=== PATIENT | female | born 1960 | race Hispanic/Latino ===

== ENCOUNTER 2023-04-17 20:46 | Emergency (ER) | payer OTHER ==
[2023-04-17 21:26] LABS: Protime INR 1.05
--- NOTE | 2023-04-17 21:27 | RAD REPORT ---
EXAM DESCRIPTION: [place] Single View04/17/2023 9:15 pm CLINICAL HISTORY: CHEST PAIN COMPARISON: No comparisons TECHNIQUE: Portable AP view of the chest. FINDINGS: The lungs are clear. No pneumothorax or effusion. The cardiomediastinal contours are unre markable. IMPRESSION: No acute cardiopulmonary process.
[2023-04-17 21:32] LABS: Absolute Lymphocytes (CBC) 2.9 K/uL (0.7-4.9); Hematocrit 33.4 % (36.0-45.0); Lymphocytes % 38.1 % (15.3-44.8); MCV 77.4 fL (80-100); MPV 7.7 fL (7.6-11.3); Platelets 336 thou/uL (152-406); RBC Red Blood Cell Count 4.31 M/uL (3.86-4.86)
[2023-04-17] MEDS ORDERED: MORPHINE 4 MG/ML SYR ONE (21:49)
[2023-04-17] MEDS ORDERED: DIAZEPAM 5 MG TABLET ONE (21:49)
[2023-04-17] MEDS ORDERED: dilTIAZem HCL 25 MG/5 ML VIAL IV ONE (21:50)
[2023-04-17] MEDS ORDERED: NA CHLORIDE 0.9% 1,000 ML ONE (21:50)
[2023-04-17] MEDS ORDERED: ONDANSETRON 4 MG/2 ML VIAL ONE (21:50)
[2023-04-17] MEDS ORDERED: DILTIAZEM HCL 60 MG TAB ONE (21:52)
[2023-04-17 21:58] LABS: Bilirubin Direct 0.1 mg/dL (0-0.2); Bilirubin Indirect, Calculated 0.2 mg/dL (0.2-0.8); Bilirubin Total 0.3 mg/dL (0.2-1.0); Magnesium 1.9 mg/dL (1.6-2.4); Protein, Total 6.9 g/dL (6.4-8.2); Troponin High Sensitivity 21.3 pg/mL (<58.9)
[2023-04-17 22:02] LABS: Potassium 2.2 mEq/L (3.5-5.1)
[2023-04-17] MEDS ORDERED: KCL 20 MEQ/100 mL IVPB 100 ML IV ONE (23:10)
[2023-04-17] MEDS ORDERED: POTASSIUM CL SA 10 MEQ TAB PO ONE (23:10)
[2023-04-17] MEDS ORDERED: DICYCLOMINE HCL 20 MG/2 ML AMP IM ONE (23:20)
[2023-04-17] MEDS ORDERED: MORPHINE 2 MG/ML SYR ONE (23:20)
[2023-04-18] MEDS ORDERED: APIXABAN 5 MG TABLET ONE (01:29)
--- NOTE | 2023-04-18 02:10 | EDPHYS ---
Physician Documentation [facility] Name: Donny Causey Age: 63 yrs Sex: Female : 1960 Arrival Date: 04/17/2023 Time: 20:46 Bed 17 Private MD: ED Physician Manoj Diaz HPI: 04/17 20:56 This 63 yrs old Female presents to ER via EMS with complaints of chest pain sp4 and vomiting . 20:56 63-year-old female presents with EMS for cute onset of chest pain midsternal with sp4 radiation to the left arm associated with tachycardia. Reported vomiting and associated abdominal pain. Patient states this is a first time here. Patient was given aspirin 324 mg p.o. prior to arrival by EMS. . 22:58 Patient reports she ran out of her medications 2 weeks ago . Patient states that she sp4 has history of atrial fibrillation diagnosed 3 years ago. Patient is on Eliquis 5 mg p.o. every 12 hours, Solifenacin 5 mg p.o., duloxetine 20 mg daily, furosemide 40 mg daily, losartan 25 mg daily, Lipitor 10 mg every night, metoprolol tartrate 75 mg p.o. twice daily. 04/18 02:24 Patient states she has not taken her medications for the past 2 weeks. sp4 Historical: - Allergies: 04/17 20:54 No Known Allergies; nj1 - PMHx: 20:54 Cerebrovascular accident; Coronary atherosclerosis; Hypertensive disorder; nj1 - Immunization history:: Client reports receiving the 2nd dose of the Covid vaccine. - Social history:: Smoking status: Patient denies any tobacco usage or history of. - Family history:: not pertinent. ROS: 22:32 Constitutional: Negative for fever, chills, and weight loss, positive chest pain , sp4 positive abdominal pain, positive vomiting 22:32 All other systems are negative, Exam: 22:30 ECG was reviewed by the Attending Physician. EKG time 2100, T atrial fibrillation sp4 with PVCs, at the rate of 109, there is no ST elevation or depression 22:32 Constitutional: This is a well developed, well nourished patient who is awake, alert, sp4 and in no acute distress. Head/Face: Normocephalic, atraumatic. Eyes: Pupils equal round and reactive to light, extra-ocular motions intact. Lids and lashes normal. Conjunctiva and sclera are not injected. Cornea within normal limits. Periorbital areas with no swelling, redness, or edema. ENT: Nares patent. No nasal discharge, no septal abnormalities noted. Tympanic membranes are normal and external auditory canals are clear. Oropharynx with no redness, swelling, or masses, exudates, or evidence of obstruction, uvula midline. Mucous membranes moist. Neck: Trachea midline, no thyromegaly or masses palpated, and no cervical lymphadenopathy. Supple, full range of motion without nuchal rigidity, or vertebral point tenderness. Chest/axilla: Normal chest wall appearance and motion. Nontender with no deformity. No lesions are appreciated. Cardiovascular: Irregularly irregular tachycardia, atrial fibrillation on the monitor , no gallops, murmurs, or rubs. Normal PMI, no JVD. No pulse deficits. Respiratory: Lungs have equal breath sounds bilaterally, clear to auscultation and percussion. No rales, rhonchi or wheezes noted. No increased work of breathing, no retractions or nasal flaring. Abdomen/GI: Soft, non-tender, with normal bowel sounds. No distension or tympany. No guarding or rebound. No evidence of tenderness throughout. Back: No spinal tenderness. No costovertebral tenderness. MS/ Extremity: Pulses equal, no cyanosis. Neurovascular intact. Full, normal range of motion. Neuro: Awake and alert, GCS 15, oriented to person, place, time, and situation. Cranial nerves II-XII grossly intact. Motor strength 5/5 in all extremities. Sensory grossly intact. Psych: Awake, alert, with orientation to person, place and time. Behavior, mood, and affect are within normal limits Vital Signs: 20:30 BP 141 / 110; Pulse 110; Resp 18; Temp 97.9(O); Pulse Ox 95% on R/A; Weight 90.72 kg nj1 (R); Height 5 ft. 2 in. ; 22:00 BP 135 / 94; Pulse 70; Resp 16; Pulse Ox 96% on R/A; jb4 23:15 BP 99 / 63; Pulse 58; Resp 23; Pulse Ox 94% on 2 lpm NC; jb4 04/18 00:54 BP 115 / 64; Pulse 70; Resp 16; Pulse Ox 100% on 2 lpm NC; jb4 02:37 BP 124 / 80; Pulse 78; Resp 16; Pulse Ox 94% on R/A; jb4 04/17 20:30 Body Mass Index 36.58 (90.72 kg, 157.48 cm) nj1 MDM: 04/17 21:03 Patient medically screened. sp4 23:37 Data reviewed: vital signs, nurses notes, EMS record, lab test result(s), EKG, sp4 radiologic studies, CT scan. Consideration of Admission/Observation Patient was admitted/placed on observation. Escalation of care including admission/observation considered. ED course: EXAM DESCRIPTION: [place] Single View04/17/2023 9:15 pm CLINICAL HISTORY: CHEST PAIN COMPARISON: No comparisons TECHNIQUE: Portable AP view of the chest. FINDINGS: The lungs are clear. No pneumothorax or effusion. The cardiomediastinal contours are unremarkable. IMPRESSION: No acute cardiopulmonary process.. ED course: CT - FINDINGS: LUNG BASES: A few pulmonary cyst within the lower lobes are noted. No consolidation. ABDOMEN: LIVER: The liver is enlarged and homogeneous. GALLBLADDER AND BILE DUCTS: Surgical clips are present in the right upper quadrant, consistent with previous cholecystectomy. Biliary dilatation is present. The common bile duct measures up to 1.1 cm. PANCREAS: No ductal dilation. No mass. SPLEEN: Unremarkable. ADRENALS: A large heterogeneous 3.7 x 3.5 cm left adrenal gland mass with a Hounsfield unit of 72 is present. The right adrenal gland is normal. KIDNEYS AND URETERS: Unremarkable. The kidneys enhance symmetrically. No obstructing renal or ureteral calculus is seen. No hydronephrosis or hydroureter. No perinephric fluid or stranding. STOMACH AND BOWEL: The stomach is decompressed. The small bowel is normal in caliber. Stool is present throughout the colon. Scattered colonic diverticula are noted without surrounding inflammation. There is no mucosal thickening or evidence of obstruction. PELVIS: APPENDIX: The appendix is normal in caliber without surrounding inflammation. BLADDER: The bladder is not well-distended. REPRODUCTIVE: The patient is status post hysterectomy. ABDOMEN and PELVIS: INTRAPERITONEAL SPACE: Unremarkable. No free air. No significant fluid collection. BONES/JOINTS: No acute fracture. SOFT TISSUES: The soft tissues are normal. VASCULATURE: Unremarkable. No abdominal aortic aneurysm. LYMPH NODES: Unremarkable. No enlarged lymph nodes. IMPRESSION: 1. Left adrenal gland mass. Recommend biochemical lab evaluation for pheochromocytoma. If lab values are normal, recommend adrenal washout CT or chemical shift MRI. 2. Moderate biliary dilatation. This may be related to postcholecystectomy state. However, if clinically indicated, ultrasound and/or MRCP could be performed for further evaluation. 3. Colonic diverticulosis. . 04/18 02:23 Differential Diagnosis altered mental status, sepsis, flu. ED course: For left adrenal sp4 mass patient was referred to Dr. Combs in [facility] endocrinology section. For regular medications patient was referred to Dr. Pool Reed , with [facility] [place]. 04/17 20:53 Order name: Basic Metabolic Panel; Complete Time: 22:14 [facility] 04/17 20:53 Order name: CBC with Diff; Complete Time: 22:14 [facility] 04/17 20:53 Order name: LFT's; Complete Time: 22:14 [facility] 04/17 20:53 Order name: Magnesium; Complete Time: 22:14 [facility] 04/17 20:53 Order name: NT PRO-BNP; Complete Time: 22:14 4 04/17 20:53 Order name: PT-INR; Complete Time: 22:14 [facility] 04/17 20:53 Order name: Troponin HS; Complete Time: 22:14 4 04/17 20:55 Order name: Lipase; Complete Time: 22:14 4 04/17 20:56 Order name: Influenza Screen (a \T\ B); Complete Time: 22:14 4 04/18 01:06 Order name: Troponin High Sensitivity; Complete Time: 02:07 4 04/17 20:53 Order name: XRAY Chest (1 view); Complete Time: 22:14 4 04/17 20:55 Order name: CT Abd/Pelvis - IV Contrast Only [facility] 04/17 20:53 Order name: Cardiac monitoring; Complete Time: 21:15 [facility] 04/17 20:53 Order name: EKG - Nurse/Tech; Complete Time: 21:15 4 04/17 20:53 Order name: IV Saline Lock; Complete Time: 21:15 [facility] 04/17 20:53 Order name: Labs collected and sent; Complete Time: 21:15 [facility] 04/17 20:53 Order name: O2 Per Protocol; Complete Time: 21:15 sp4 04/17 20:53 Order name: O2 Sat Monitoring; Complete Time: 21:15 sp4 EC/27 22:30 Rate is 109 beats/min. Rhythm is irregularly irregular, A fib with Multifocal PVCs. QRS sp4 [place] is Normal. QRS interval is normal. QT interval is normal. No Q waves. No ST changes noted. Clinical impression: Atrial Fibrillation. Interpreted by me. Reviewed by me. Administered Medications: 21:50 Drug: Diltiazem IVP 20 mg IVP once; Over 2 minutes Route: IVP; Site: left antecubital; jb4 21:53 Drug: NS 0.9% IV 1000 ml IV at 125 ml/hr continuous Route: IV; Rate: 125 ml/hr; Site: jb4 left antecubital; 21:53 Drug: morphine IVP or IV 4 mg IVP once over 4 mins Route: IVP; Infused Over: 4 mins; jb4 Site: left antecubital; 21:53 Drug: Diazepam PO 5 mg PO once Route: PO; jb4 21:53 Drug: Ondansetron IVP 4 mg IVP once; over 2 minutes Route: IVP; Site: left antecubital; jb4 21:53 Drug: Diltiazem PO 60 mg PO once Route: PO; jb4 23:15 Drug: Dicyclomine IM 20 mg IM once Route: IM; Site: right gluteus; jb4 23:16 Drug: Potassium Chloride IV 20 mEq IV at calculated rate once; administer over 1-2 jb4 hours Route: IV; Rate: calculated rate; Site: left antecubital; 23:16 Drug: Potassium Chloride PO 40 mEq PO once Route: PO; jb4 23:16 Drug: morphine IVP or IV 2 mg IVP once over 4 mins Route: IVP; Infused Over: 4 mins; jb4 Site: left antecubital; 04/18 00:15 Not Given (Other Intervention Used): ns 0.45 % with kcl40 meq/l 1000 ml IV at 125 ml/hr jb4 once 01:19 Not Given (Physician Discretion): ns 0.9% with kcl20 meq/l 1000 ml IV at 100 ml/hr jb4 continuous 01:19 Drug: Eliquis PO 5 mg PO once Route: PO; jb4 Disposition Summary: 04/18/23 02:09 Discharge Ordered Problem: new sp4 Symptoms: have improved sp4 Condition: Stable sp4 Diagnosis - Chest pain, unspecified sp4 - Chest pain, abdominal pain, atrial fibrillation rate controlled, noncompliance of sp4 medications Followup: sp4 - With: Private Physician - When: 7 - 10 days - Reason: Recheck today's complaints Discharge Instructions: - Discharge Summary Sheet sp4 - Atrial Fibrillation, [id number] sp4 Forms: - Patient Portal Instructions sp4 Prescriptions: - Eliquis 5 mg Oral tablet - take 2 tablet ORAL route every 12 hours for 30 days; 60 tablet; Refills: 0, sp4 Product Selection Permitted - furosemide 40 mg Oral tablet - take 1 tablet ORAL route once daily; 30 tablet; Refills: 0, Product Selection sp4 Permitted - losartan 25 mg Oral tablet - take 1 tablet ORAL route once daily; 30 tablet; Refills: 0, Product Selection sp4 Permitted - solifenacin 10 mg Oral tablet - take 1 tablet ORAL route every morning; 30 tablet; Refills: 0, Product sp4 Selection Permitted - Lipitor 10 mg Oral Tablet - take 1 tablet ORAL route once daily; 30 tablet; Refills: 0, Product Selection sp4 Permitted - Metoprolol Tartrate 25 mg Oral tablet - take 3 tablet ORAL route 2 times per day with a meal; 180 tablet; Refills: 0, sp4 Product Selection Permitted Signatures: Dispatcher [employer] Kun Burgess, RN RN jb4 Manoj Diaz MD MD sp4 Diamond Marie RN RN nj1
--- NOTE | 2023-04-18 02:10 | ER ---
Nurse's Notes [facility] Name: Donny Causey Age: 63 yrs Sex: Female : 1960 Arrival Date: 04/17/2023 Time: 20:46 Bed 17 Private MD: Diagnosis: Chest pain, unspecified;Chest pain, abdominal pain, atrial fibrillation rate controlled, noncompliance of medications Presentation: 04/17 20:30 Chief complaint: Patient states: Chest pain for a week but worsen today, radiating to nj1 left arm. was vomiting yesterday, none today. 20:30 Method Of Arrival: EMS: [facility] 20:30 Coronavirus screen: Vaccine status: Patient reports receiving the 2nd dose of the covid nj1 vaccine. Ebola Screen: Patient denies travel to an Ebola-affected area in the 21 days before illness onset. Initial Sepsis Screen: Does the patient meet any 2 criteria? HR > 90 bpm. No. Patient's initial sepsis screen is negative. Does the patient have a suspected source of infection? No. Patient's initial sepsis screen is negative. Risk Assessment: Do you want to hurt yourself or someone else? Patient reports no desire to harm self or others. Onset of symptoms was March 2023. 20:30 Acuity: WENCESLAO 3 nj1 20:30 Care prior to arrival: Medication(s) given: ASA, 81 mg, x 4. nj1 Historical: - Allergies: 20:54 No Known Allergies; nj1 - PMHx: 20:54 Cerebrovascular accident; Coronary atherosclerosis; Hypertensive disorder; nj1 - Immunization history:: Client reports receiving the 2nd dose of the Covid vaccine. - Social history:: Smoking status: Patient denies any tobacco usage or history of. - Family history:: not pertinent. Screenin/28 02:37 [facility] ED Fall Risk Assessment (Adult) History of falling in the last 3 months, jb4 including since admission No falls in past 3 months (0 pts) Confusion or Disorientation No (0 pts). Abuse screen: Denies threats or abuse. Nutritional screening: No deficits noted. Tuberculosis screening: No symptoms or risk factors identified. Assessment: 04/17 20:55 General: Appears in no apparent distress. uncomfortable, Behavior is calm, cooperative, nj1 appropriate for age. Pain: Complains of pain in chest Pain currently is 8 out of 10 on a pain scale. Neuro: Level of Consciousness is awake, alert, obeys commands, Oriented to person, place, time, situation. Cardiovascular: Patient's skin is warm and dry. Respiratory: Airway is patent Respiratory effort is even, unlabored. 22:00 Reassessment: Patient appears in no apparent distress at this time. Patient and/or jb4 family updated on plan of care and expected duration. Pain level reassessed. Patient is alert, oriented x 3, equal unlabored respirations, skin warm/dry/pink. 23:00 Reassessment: Patient appears in no apparent distress at this time. Patient and/or jb4 family updated on plan of care and expected duration. Pain level reassessed. Patient is alert, oriented x 3, equal unlabored respirations, skin warm/dry/pink. 04/18 00:17 Reassessment: Pt resting in bed with eyes closed, respirations are even and unlabored jb4 with no s/s of pain or distress noted. 01:15 Reassessment: Patient appears in no apparent distress at this time. Patient and/or jb4 family updated on plan of care and expected duration. Pain level reassessed. Patient is alert, oriented x 3, equal unlabored respirations, skin warm/dry/pink. 02:37 Reassessment: Patient appears in no apparent distress at this time. Patient and/or jb4 family updated on plan of care and expected duration. Pain level reassessed. Patient is alert, oriented x 3, equal unlabored respirations, skin warm/dry/pink. Vital Signs: 04/17 20:30 BP 141 / 110; Pulse 110; Resp 18; Temp 97.9(O); Pulse Ox 95% on R/A; Weight 90.72 kg nj1 (R); Height 5 ft. 2 in. ; 22:00 BP 135 / 94; Pulse 70; Resp 16; Pulse Ox 96% on R/A; 23:15 BP 99 / 63; Pulse 58; Resp 23; Pulse Ox 94% on 2 lpm NC; 4 04/18 00:54 BP 115 / 64; Pulse 70; Resp 16; Pulse Ox 100% on 2 lpm NC; 4 02:37 BP 124 / 80; Pulse 78; Resp 16; Pulse Ox 94% on R/A; 4 04/17 20:30 Body Mass Index 36.58 (90.72 kg, 157.48 cm) nj1 ED Course: 04/17 20:49 Patient arrived in ED. as6 20:52 Manoj Diaz MD is Attending Physician. sp4 20:53 Diamond Marie, CHARLES is Primary Nurse. nj1 20:54 Triage completed. nj1 20:55 Arm band placed on. nj1 21:07 Inserted saline lock: 20 gauge in left antecubital area, using aseptic technique. Blood nj1 collected. 21:17 XRAY Chest (1 view) In Process Unspecified. EDMS 21:25 Report given to Max SOTO. nj1 22:35 CT Abd/Pelvis - IV Contrast Only In Process Unspecified. EDMS 04/18 01:35 Troponin High Sensitivity Sent. cg3 02:37 Patient has correct armband on for positive identification. Bed in low position. Call jb4 light in reach. Side rails up X 1. 02:37 No provider procedures requiring assistance completed. IV discontinued, intact, jb4 bleeding controlled, No redness/swelling at site. Pressure dressing applied. Administered Medications: 04/17 21:50 Drug: Diltiazem IVP 20 mg IVP once; Over 2 minutes Route: IVP; Site: left antecubital; jb4 21:53 Drug: NS 0.9% IV 1000 ml IV at 125 ml/hr continuous Route: IV; Rate: 125 ml/hr; Site: jb4 left antecubital; 21:53 Drug: morphine IVP or IV 4 mg IVP once over 4 mins Route: IVP; Infused Over: 4 mins; jb4 Site: left antecubital; 21:53 Drug: Diazepam PO 5 mg PO once Route: PO; jb4 21:53 Drug: Ondansetron IVP 4 mg IVP once; over 2 minutes Route: IVP; Site: left antecubital; jb4 21:53 Drug: Diltiazem PO 60 mg PO once Route: PO; jb4 23:15 Drug: Dicyclomine IM 20 mg IM once Route: IM; Site: right gluteus; jb4 23:16 Drug: Potassium Chloride IV 20 mEq IV at calculated rate once; administer over 1-2 jb4 hours Route: IV; Rate: calculated rate; Site: left antecubital; 23:16 Drug: Potassium Chloride PO 40 mEq PO once Route: PO; jb4 23:16 Drug: morphine IVP or IV 2 mg IVP once over 4 mins Route: IVP; Infused Over: 4 mins; jb4 Site: left antecubital; 04/18 00:15 Not Given (Other Intervention Used): ns 0.45 % with kcl40 meq/l 1000 ml IV at 125 ml/hr jb4 once 01:19 Not Given (Physician Discretion): ns 0.9% with kcl20 meq/l 1000 ml IV at 100 ml/hr jb4 continuous 01:19 Drug: Eliquis PO 5 mg PO once Route: PO; jb4 Medication: 02:37 VIS not applicable for this client. jb4 Outcome: 02:09 Discharge ordered by . sp4 02:37 Discharged to home ambulatory, jb4 02:37 Condition: stable 02:37 Discharge instructions given to patient, Instructed on discharge instructions, follow up and referral plans. medication usage, Demonstrated understanding of instructions, follow-up care, medications, Prescriptions given X 5 02:40 Patient left the ED. jb4 Signatures: Dispatcher [employer] EDKun Mendoza, RN RN jb4 Dao Mcneal RN RN [id number] Manoj Diaz MD MD sp4 Diamond Marie RN RN roz1 Kelsi Vang 3
[2023-04-18 03:16] VITALS: BP 124/80; O2SAT 94
--- NOTE | 2023-04-18 12:16 | RAD REPORT ---
EXAM DESCRIPTION: CT - Abdomen Pelvis W Contrast - 04/17/2023 10:33 pm CLINICAL HISTORY: The patient is 63 years old and is Female; ABD PAIN TECHNIQUE: Axial computed tomography images of the abdomen and pelvis with intravenous contrast. S agittal and coronal reformatted images were created and reviewed. This CT exam was performed using one or more of the following dose reduction techniques: automated exposure control, adjustment of t he mA and/or kV according to patient size, and/or use of iterative reconstruction technique. COMPARISON: No relevant prior studies available. FINDINGS: LUNG BASES: A few pulmonary cyst within the lower lobes are noted. No consolidation. ABDOMEN: LIVER: The liver is enlarged and homogeneous. GALLBLADDER AND BILE DUCTS: Surgical clips are present in the right upper quadrant, consistent wi th previous cholecystectomy. Biliary dilatation is present. The common bile duct measures up to 1.1 cm. PANCREAS: No ductal dilation. No mass. SPLEEN: Unremarkable. ADRENALS: A large heterogeneous 3.7 x 3.5 cm left adrenal gland mass with a Hounsfield unit of 72 is present. The right adrenal gland is normal. KIDNEYS AND URETERS: Unremarkable. The kidneys enhance symmetrically. No obstructing renal or ure teral calculus is seen. No hydronephrosis or hydroureter. No perinephric fluid or stranding. STOMACH AND BOWEL: The stomach is decompressed. The small bowel is normal in caliber. Stool is pr esent throughout the colon. Scattered colonic diverticula are noted without surrounding inflammation. There is no mucosal thickening or evidence of obstruction. PELVIS: APPENDIX: The appendix is normal in caliber without surrounding inflammation. BLADDER: The bladder is not well-distended. REPRODUCTIVE: The patient is status post hysterectomy. ABDOMEN and PELVIS: INTRAPERITONEAL SPACE: Unremarkable. No free air. No significant fluid collection. BONES/JOINTS: No acute fracture. SOFT TISSUES: The soft tissues are normal. VASCULATURE: Unremarkable. No abdominal aortic aneurysm. LYMPH NODES: Unremarkable. No enlarged lymph nodes. IMPRESSION: 1. Left adrenal gland mass. Recommend biochemical lab evaluation for pheochromoc ytoma. If lab values are normal, recommend adrenal washout CT or chemical shift MRI. 2. Moderate biliary dilatation. This may be related to postcholecystectomy state. However, if clini rambo indicated, ultrasound and/or MRCP could be performed for further evaluation. 3. Colonic diverticulosis. Electronically signed by: Mell Resendiz MD 04/17/2023 11:31 PM ADULT EDUCATION MANAGER Due to temporary technical issues with the PACS/Fluency reporting system, reports are being signed by the in house radiologists without review as a courtesy to insure prompt reporting. The interpreting radiologist is fully responsible for the content of the report.
--- NOTE | 2023-04-20 15:25 | EKG ---
Test Date: 2023-04-17 Test Time: 21:00:54 Biotechnician: ELIZABETH MEASUREMENT RESULTS: Intervals: Rate: 109 [place]: QRSD: 104 QT: 406 QTc: 546 [place]: P: [place]: QRS: 8 T: 21 INTERPRETIVE STATEMENTS: Atrial fibrillation with premature ventricular or aberrantly conducted complexes Abnormal ECG No previous ECG available for comparison Electronically Signed On 04-20-23 15:14:52 POSTER by Avery Conn
== END 2023-04-18 02:40 | disposition home or self-care (01) ==
LOC: ER 20:46
DX: R07.89 Other chest pain (principal); R10.9 Unspecified abdominal pain; I48.91 Unspecified atrial fibrillation; R11.10 Vomiting, unspecified; Z91.148 Patient's other noncompliance with medication regimen for other reason; E27.8 Other specified disorders of adrenal gland; I10 Essential (primary) hypertension; Z86.73 Personal history of transient ischemic attack (TIA), and cerebral infarction without residual deficits; Z79.01 Long term (current) use of anticoagulants
CPT/HCPCS: 93005; 85025; 80048; 36415; 83735; 85610; 80076; 84484 ×2; 83690; 83880; 87804 ×2; 74177; 71045; 96375; 96372; 96374; 99284; Q9967; J3480; J0500; J2270; J2405; J7030

== ENCOUNTER 2023-04-23 18:40 | Inpatient (IN) | payer OTHER ==
--- OUTSIDE RECORDS SUMMARY | 2023-04-23 18:47 | XMS REPORT | Continuity of Care Document ---
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 00 mouth 2 times daily. 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 solifenacin 2020-0 Yes Mixed 5mg QD Take 1 Jose ris (VESICARE) 5-07 stress and tablet by Health 5 mg tablet 00:00: urge mouth 00 urinary daily. incontinenc e atorvastati 2020-0 Yes High 10mg Take 1 [facility] (LIPITOR) 5-07 cholesterol tablet by Health 10 mg 00:00: mouth at tablet 00 bedtime nightly. nitroGLYCER 2020-0 Yes Cardiovascu Dissolve 1 [place] 5-07 lar tablet Health (NITROSTAT) 00:00: arterioscle under the 0.4 mg 00 rosis tongue sublingual every 5 tablet minutes as needed, up to 3 times. If chest pain persists, call 911. labetaloL 2020-0 Yes Essential 300mg Q.5D Take 1 and [place] (NORMODYNE) 5-07 hypertensio 1/2 H ealth 200 mg 00:00: n tablets by tablet 00 mouth 2 times daily. 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 solifenacin 2020-0 Yes Mixed 5mg QD Take 1 [facility] (VESICARE) 5-07 stress and tablet by Health 5 mg tablet 00:00: urge mouth 00 urinary daily. incontinenc e atorvastati 2020-0 Yes High 10mg Take 1 [facility] (LIPITOR) 5- cholesterol tablet by Health 10 mg 00:00: mouth at tablet 00 bedtime nightly. nitroGLYCER 2020-0 Yes Cardiovascu Dissolve 1 [place] 09-25 lar tablet Health (NITROSTAT) 00:00: arterioscle under the 0.4 mg 00 rosis tongue sublingual every 5 tablet minutes as needed, up to 3 times. If chest pain persists, call 911. labetaloL 2020-0 Yes Essential 300mg Q.5D Take 1 and [place] (NORMODYNE) 5-07 hypertensio 1/2 H ealth 200 mg 00:00: n tablets by tablet 00 mouth 2 times daily. 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 solifenacin 2020-0 Yes Mixed 5mg QD Take 1 [facility] (VESICARE) 5-07 stress and tablet by Health 5 mg tablet 00:00: urge mouth 00 urinary daily. incontinenc e atorvastati 2020-0 Yes High 10mg Take 1 [facility] (LIPITOR) 5-07 cholesterol tablet by Health 10 mg 00:00: mouth at tablet 00 bedtime nightly. nitroGLYCER 2020-0 Yes Cardiovascu Dissolve 1 [place] 5-07 lar tablet Health (NITROSTAT) 00:00: arterioscle under the 0.4 mg 00 rosis tongue sublingual every 5 tablet minutes as needed, up to 3 times. If chest pain persists, call 911. labetaloL 2020-0 Yes Essential 300mg Q.5D Take 1 and [place] (NORMODYNE) 09-25 hypertensio 1/2 H ealth 200 mg 00:00: n tablets by tablet 00 mouth 2 times daily. aspirin 81 2020-0 Yes Thoracic 81mg QD Take 1 H arris mg delayed 09-25 aortic tablet by He alth release 00:00: atheroscler mouth tablet 00 osis daily. solifenacin 2019- Yes Mixed 5mg QD Take 1 Jose ris (VESICARE) 09-25 stress and tablet by [facility] 5 mg tablet 00:00: urge mouth 00 urinary daily. incontinenc e atorvastati Yes High 10mg Take 1 [facility] (LIPITOR) 09-25 cholesterol tablet by [facility] 10 mg 00:00: mouth at tablet 00 bedtime nightly. nitroGLYCER 2019- Yes Cardiovascu Dissolve 1 [place] 09-25 lar tablet Health (NITROSTAT) 00:00: arterioscle under the 0.4 mg 00 rosis tongue sublingual every 5 tablet minutes as needed, up to 3 times. If chest pain persists, call 911. labetaloL Yes Essential 300mg Q.5D Take 1 and [place] (NORMODYNE) 09-25 hypertensio 1/2 H ealth 200 mg 00:00: n tablets by tablet 00 mouth 2 times daily. NIFEdipine 2021- No Essential 60mg QD Take 1 [place] (PROCARDIA 09-25 hypertensio tablet by [employer]) 60 mg 00:00: 00:00 n mouth 24 hr 00 :00 daily. extended release tablet NIFEdipine 2021- No Essential 60mg QD Take 1 [place] (PROCARDIA 09-25 hypertensio tablet by [employer]) 60 mg 00:00: 00:00 n mouth 24 hr 00 :00 daily. extended release tablet NIFEdipine 2021- No Essential 60mg QD Take 1 [place] (PROCARDIA 09-25 hypertensio tablet by [employer]) 60 mg 00:00: 00:00 n mouth 24 hr 00 :00 daily. extended release tablet NIFEdipine 2021- No Essential 60mg QD Take 1 [place] (PROCARDIA 09-25 hypertensio tablet by [employer]) 60 mg 00:00: 00:00 n mouth 24 hr 00 :00 daily. extended release tablet NIFEdipine 2021- No Essential 60mg QD Take 1 [place] (PROCARDIA 09-25 hypertensio tablet by [facility]) 60 mg 00:00: 00:00 n mouth 24 hr 00 :00 daily. extended release tablet NIFEdipine 2021- No Essential 60mg QD Take 1 [place] (PROCARDIA 09-25 hypertensio tablet by [facility]) 60 mg 00:00: 00:00 n mouth 24 hr 00 :00 daily. extended release tablet losartan 2010-05- No HTN 100mg QD Take 4 [facility] (COZAAR) 25 05-25 (hypertensi Tabs by Health mg tablet 00:00: 00:00 on) mouth 00 :00 daily. losartan 2010-05- No HTN 100mg QD Take 4 [facility] (COZAAR) 25 05-25 (hypertensi Tabs by Health mg tablet 00:00: 00:00 on) mouth 00 :00 daily. losartan 2010-05- No HTN 100mg QD Take 4 [facility] (COZAAR) 25 05-25 (hypertensi Tabs by Health mg tablet 00:00: 00:00 on) mouth 00 :00 daily. losartan 2010-05- No HTN 100mg QD Take 4 [facility] (COZAAR) 25 05-25 (hypertensi Tabs by Health mg tablet 00:00: 00:00 on) mouth 00 :00 daily. losartan 2010-05- No HTN 100mg QD Take 4 [facility] (COZAAR) 25 05-25 (hypertensi Tabs by Health mg tablet 00:00: 00:00 on) mouth 00 :00 daily. losartan 2010-05- No HTN 100mg QD Take 4 [facility] (COZAAR) 25 05-25 (hypertensi Tabs by Health mg tablet 00:00: 00:00 on) mouth 00 :00 daily. Vital Signs Vital Name Observation Time Observation Value Comments Source Systolic blood pressure 2022 08:37:00 148 mm[Hg] [facility] Diastolic blood pressure 2022 08:37:00 94 mm[Hg] [facility] Heart rate 2022 08:37:00 97 /min [facility] Body temperature 2022 08:37:00 36.72 [facility] Respiratory rate 2022 08:37:00 18 /min [facility] Body height 2022 08:37:00 154.9 cm [facility] Body weight 2022 08:37:00 83.643 kg [facility] BMI 2022 08:37:00 34.84 kg/m2 [facility] Systolic blood pressure 2021-09-15 11:49:00 142 mm[Hg] [facility] Diastolic blood pressure 2021-09-15 11:49:00 91 mm[Hg] [facility] Heart rate 2021-09-15 11:49:00 57 /min [facility] Body temperature 2021-09-15 11:49:00 36.78 [facility] Respiratory rate 2021-09-15 11:49:00 16 /min [facility] Body height 2021-09-15 11:49:00 154.9 cm [facility] Body weight 2021-09-15 11:49:00 87.091 kg [facility] BMI 2021-09-15 11:49:00 36.28 kg/m2 [facility] Oxygen saturation in 2021-09-15 11:49:00 100 /min [facility] Arterial blood by Pulse oximetry Procedures Procedure Date / Time Performed Performing Clinician [facility] e MAMMOGRAM BILAT SCREEN 2022-04-08 14:03:00 [facility] 2022-04-08 12:43:00 Ttayana Lee FERRITIN 2022-04-08 12:43:00 Tatyana Lee IRON PROFILE 2022-04-08 12:43:00 Tatyana Lee CBC/DIFF 2022-04-08 12:43:00 Tatyana Lee h URINALYSIS 2022-04-08 12:43:00 Tatyana Lee CBC 2022-04-08 12:43:00 Tatyana Lee URINE CULTURE 2022-04-08 12:43:00 Tatyana Lee 12 LEAD EKG 2022 09:45:59 KaleighTatyana vásquez Vivian Plan of Care Planned Activity Planned Date Details Comments Source Future Scheduled Test 2023-04-08 00:00:00 Breast Cancer Scrn [facility] (Yearly) [code = Breast Cancer Scrn (Yearly)] Future Scheduled Test 2023-04-08 00:00:00 Breast Cancer Scrn [facility] (Yearly) [code = Breast Cancer Scrn (Yearly)] Future Scheduled Test 2023-04-08 00:00:00 Breast Cancer Scrn [facility] (Yearly) [code = Breast Cancer Scrn (Yearly)] Future Scheduled Test 2023-04-08 00:00:00 Breast Cancer Scrn [facility] (Yearly) [code = Breast Cancer Scrn (Yearly)] Future Scheduled Test 2022-02-19 00:00:00 IMM Influenza [facility] Seasonal (>/= 19 yrs) [code = IMM Influenza Seasonal (>/= 19 yrs)] Future Scheduled Test 2008 00:00:00 Screening for [facility] malignant neoplasm of colon (procedure) [code = 155857992] Future Scheduled Test 2008 00:00:00 Screening for [facility] malignant neoplasm of colon (procedure) [code = 056912309] Future Scheduled Test 2008 00:00:00 Screening for [facility] malignant neoplasm of colon (procedure) [code = 937680234] Future Scheduled Test 2008 00:00:00 Screening for [facility] malignant neoplasm of colon (procedure) [code = 965079464] Future Scheduled Test 2008 00:00:00 Screening for [facility] malignant neoplasm of colon (procedure) [code = 777882725] Future Scheduled Test 2008 00:00:00 Screening for [facility] malignant neoplasm of colon (procedure) [code = 781635582] Future Scheduled Test 1998 00:00:00 Breast Cancer Scrn [facility] (Yearly) [code = Breast Cancer Scrn (Yearly)] Future Scheduled Test 1998 00:00:00 Breast Cancer Scrn [facility] (Yearly) [code = Breast Cancer Scrn (Yearly)] Future Scheduled Test 1988 00:00:00 Screening for [facility] malignant neoplasm of cervix (procedure) [code = 375721393] Future Scheduled Test 1988 00:00:00 Screening for [facility] malignant neoplasm of cervix (procedure) [code = 849622735] Future Scheduled Test 1988 00:00:00 Screening for [facility] malignant neoplasm of cervix (procedure) [code = 879966187] Future Scheduled Test 1988 00:00:00 Screening for [facility] malignant neoplasm of cervix (procedure) [code = 268969831] Future Scheduled Test 1988 00:00:00 Screening for [facility] malignant neoplasm of cervix (procedure) [code = 384699430] Future Scheduled Test 1988 00:00:00 Screening for [facility] malignant neoplasm of cervix (procedure) [code = 705115916] Future Scheduled Test 1988 00:00:00 Screening for [facility] malignant neoplasm of cervix (procedure) [code = 846691950] Future Scheduled Test 1988 00:00:00 Screening for [facility] malignant neoplasm of cervix (procedure) [code = 110491922] Future Scheduled Test 1988 00:00:00 Screening for [facility] malignant neoplasm of cervix (procedure) [code = 739222050] Future Scheduled Test 1988 00:00:00 Screening for [facility] malignant neoplasm of cervix (procedure) [code = 284076912] Future Scheduled Test 1988 00:00:00 Screening for [facility] malignant neoplasm of cervix (procedure) [code = 413216291] Future Scheduled Test 1988 00:00:00 Screening for [facility] malignant neoplasm of cervix (procedure) [code = 492216344] Future Scheduled Test 1958 00:00:00 COVID-19 Vaccine (#1) [facility] [code = COVID-19 Vaccine (#1)] Future Scheduled Test 1958 00:00:00 COVID-19 Vaccine (#1) [facility] [code = COVID-19 Vaccine (#1)] Future Scheduled Test 1958 00:00:00 COVID-19 Vaccine (#1) [facility] [code = COVID-19 Vaccine (#1)] Future Scheduled Test 1958 00:00:00 COVID-19 Vaccine (#1) [facility] [code = COVID-19 Vaccine (#1)] Future Scheduled Test 1958 00:00:00 COVID-19 Vaccine (#1) [facility] [code = COVID-19 Vaccine (#1)] Future Scheduled Test 1958 00:00:00 COVID-19 Vaccine (#1) [facility] [code = COVID-19 Vaccine (#1)] Encounters Start End Encounter Admission Attending Care Care Encounter Source Date/Time Date/Time Type Type Clinicians Facility Department ID 2022-09-16 Outpatient [facility] [id number] [place] 15:03:42 [id number] [facility] 2023-01-12 2023-01-12 Outpatient FELICIA, [facility] [id number] [facility] 00:[facility] 00:00:00 DESTINY Vasques 2022-12-07 2022-12-07 Outpatient NNADI, [facility] [id number] [facility] 00:00:00 00:00:00 [facility] 2022-12-06 2022-12-06 Outpatient [facility] [id number] [facility] 00:00:00 00:00:00 [facility] 2022-11-03 2022-11-03 Outpatient NNADI, [facility] [id number] [facility] 00:00:00 00:00:00 [facility] 2022-10-12 2022-10-12 Outpatient [facility] [id number] [facility] 13:59:17 14:05:06 [facility] 2022-10-12 2022-10-12 Outpatient NNADI, [facility] [id number] [facility] 12:55:48 13:38:52 [facility] 2022-10-12 2022-10-12 Outpatient NNADI, [facility] [id number] [facility] 00:00:00 00:00:00 [facility] 2022-09-23 2022-09-23 Outpatient NNADI, [facility] [id number] [facility] 00:00:00 00:00:00 TATYANA Healt 2022-09-15 2022-09-15 Outpatient NNADI, [facility] [id number] [facility] 09:48:17 11:26:40 [facility] 2022-09-15 2022-09-15 Outpatient NNADI, [facility] [id number] [facility] 10:59:51 11:04:14 T[facility]YANA [facility]alt 2022-09-15 2022-09-15 Outpatient [facility] [id number] [place] 00:00:00 00:00:00 [facility] 2022-09-15 2022-09-15 Outpatient NNADI, [facility] [id number] [place] 00:00:00 00:00:00 TATYANA Capricet 2022-09-14 2022-09-14 Outpatient [facility] [id number] [place] 00:00:00 00:00:00 [facility] 2022-09-13 2022-09-13 Outpatient [facility] [id number] [place] 14:56:59 15:19:42 [facility] 2022-09-08 2022-09-08 Outpatient NNADI, [facility] [id number] [place] 13:23:03 13:38:23 [facility] 2022-09-08 2022-09-08 Outpatient NNADI, [facility] [id number] [place] 10:58:01 11:55:10 [facility] 2022-09-08 2022-09-08 Outpatient NNADI, [facility] [id number] [place] 11:34:30 11:38:36 LEDY[facility] Capricet 2022-09-08 2022-09-08 Outpatient NNADI, [facility] [id number] [place] 00:00:00 00:00:00 TATYANA Capricet 2022-09-08 2022-09-08 Outpatient HANSEN, [facility] [id number] [facility] 00:00:00 00:00:00 [facility] 2022-08-31 2022-08-31 Outpatient HANSEN, [facility] [id number] [place] 12:52:54 23:59:00 [facility] 2022-05-11 2022-05-11 Outpatient NNADI, [facility] [id number] [place] 00:00:00 00:00:00 LEDY[facility] Capricet 2022-05-11 2022-05-11 Outpatient [facility] [id number] [place] 00:00:00 00:00:00 [facility] 2022-05-10 2022-05-10 Outpatient [facility] [id number] [place] 00:00:00 00:00:00 [facility] 2022-04-26 2022-04-26 Outpatient NNADI, [facility] [id number] [place] 13:05:22 13:15:15 [facility] 2022-04-26 2022-04-26 Outpatient NNADI, [facility] [id number] [place] 12:11:21 12:18:54 TATYANA Vasquest 2022-04-26 2022-04-26 Outpatient HANSEN, [facility] [id number] [facility] 10:34:21 12:00:16 [facility] 2022-04-26 2022-04-26 Outpatient HANSEN, [facility] [id number] [facility] 00:00:00 00:00:00 [facility] 2022-04-22 2022-04-22 Emergency NNADI, [facility] [id number] [facility] 00:00:00 00:00:00 TATYANA Capricet 2022-04-08 2022-04-08 Ancillary Nnadi, [facility] [id number] [facility] 13:45:00 14:04:02 Procedure Tatyana Mullins [facility] 2022-04-08 2022-04-08 Outpatient NNADI, [facility] [id number] [facility] 12:42:10 12:43:26 TATYANA Park 2022-04-08 2022-04-08 Outpatient NNADI, [facility] [id number] [facility] 00:00:00 00:00:00 TATYANA Capricet 2022 2022 Emergency [facility] [id number] [facility] 11:00:00 19:06:45 [facility] 2022 2022 Office Nnadi, [facility] [id number] [facility] 08:20:00 10:36:31 Visit Tatyana [place] 2022 2022 Orders Nnadi, [facility] [id number] [facility] 00:00:00 00:00:00 Only Tatyana Vasquest 2021-09-15 2021-09-15 Office Igor, [facility] [id number] [facility] 12:40:00 12:40:00 Visit Lupe Vasquest 2020-12-07 2020-12-07 Outpatient EKERUO, [facility] [id number] [facility] 00:00:00 00:00:00 [facility] 2020-11-02 2020-11-04 Inpatient EM TREMAINE Cruz TELE [id number] [facility] 10:36:00 12:40:00 Naya 00 [facility] 2020-11-02 2020-11-02 Outpatient TONIO Cruz LABO [id number] [facility] 14:57:00 14:57:00 Naya 11 [facility] 2020-08-27 2020-08-27 Outpatient [facility] [id number] [facility] 00:00:00 00:00:00 Health 2020-06-25 2020-06-25 Outpatient YULY, [facility] [id number] [facility] 09:00:48 09:16:45 [facility] 2020-06-18 2020-06-18 Outpatient [facility] [id number] [facility] 00:00:00 00:00:00 Health 2020-06-15 2020-06-15 Outpatient EKERUO, [facility] [id number] [facility]11 2020-06-11 [facility] [id number] [facility] 09:38:00 12:50:00 [facility] 2020-04-09 2020-04-09 Outpatient BARB, [facility] [id number] [facility] 10:31:17 11:16:16 [facility] 2020-02-09 2020-02-15 Inpatient AUSTEN SongBM NEUR [id number] [facility] 12:51:00 00:52:26 Pelin 31 [facility] 2020-02-09 2020-02-09 Outpatient AUSTEN NievesCL LABO [id number] [facility] 07:39:00 07:39:00 Melina 39 [facility] Results Test Description Test Time Test Comments Results Result Sour e Comments 12 LEAD EKG 2022-03-22 [facility] 09:45:59 Test Date: [id number] Name: EDSON CAUSEY Department: 4621Patient ID: [id number] Room: Gender: F Human Factors Ergonomist: : 1960 Requested By: TATYANA LEE Order Number: [id number] Reading MD: Nikole Brand M.D. MeasurementsIntervals [place] Rate: 80 P: AK: 0 QRS: -11QRSD: 104 T: -31QT: 400 QTc: 436 Interpretive StatementsATRIAL FIBRILLATIONMODERATE VOLTAGE CRITERIA FOR LVH, CONSIDER NORMAL VARIANTNONSPECIFIC ST & T-WAVE ABNORMALITYABNORMAL RHYTHM ECGElectronically Signed On 2022 13:57:18 DIALS INSPECTOR by Nikole Brand M.D.[facility] 12 LEAD EKG 2022-03-22 12 LEAD EKG FOR CHP [facility] 1 [facility] 09:45:59 Test Date: [id number] Name: [facility] Department: 4621Patient ID: [id number] Room: Gender: F Human Factors Ergonomist: : 1960 Requested By: TATYANA LEE Order Number: [id number] Reading MD: Nikole Brand M.D. MeasurementsIntervals [place] Rate: 80 P: AK: 0 QRS: -11QRSD: 104 T: -31QT: 400 QTc: 436 Interpretive StatementsATRIAL FIBRILLATIONMODERATE VOLTAGE CRITERIA FOR LVH, CONSIDER NORMAL VARIANTNONSPECIFIC ST & T-WAVE ABNORMALITYABNORMAL RHYTHM ECGElectronically Signed On 2022 13:57:18 DIALS INSPECTOR by Nikole Brand M.D.[facility] 12 LEAD EKG 2022-03-22 12 LEAD EKG FOR CHP [facility] 1 [facility] 09:45:59 Test Date: [id number] Name: [facility] Department: 4621Patient ID: [id number] Room: Gender: F Human Factors Ergonomist: : 1960 Requested By: TATYANA LEE Order Number: [id number] Reading MD: Nikole Brand M.D. MeasurementsIntervals [place] Rate: 80 P: AK: 0 QRS: -11QRSD: 104 T: -31QT: 400 QTc: 436 Interpretive StatementsATRIAL FIBRILLATIONMODERATE VOLTAGE CRITERIA FOR LVH, CONSIDER NORMAL VARIANTNONSPECIFIC ST & T-WAVE ABNORMALITYABNORMAL RHYTHM ECGElectronically Signed On 2022 13:57:18 DIALS INSPECTOR by Nikole Brand M.D.[facility] 12 LEAD EKG 2022-03-22 12 LEAD EKG FOR CHP [facility] 1 [facility] 09:45:59 Test Date: [id number] Name: [facility] Department: 4621Patient ID: [id number] Room: Gender: F Human Factors Ergonomist: : 1960 Requested By: TATYANA LEE Order Number: [id number] Reading MD: Nikole Brand M.D. MeasurementsIntervals [place] Rate: 80 P: AK: 0 QRS: -11QRSD: 104 T: -31QT: 400 QTc: 436 Interpretive StatementsATRIAL FIBRILLATIONMODERATE VOLTAGE CRITERIA FOR LVH, CONSIDER NORMAL VARIANTNONSPECIFIC ST & T-WAVE ABNORMALITYABNORMAL RHYTHM ECGElectronically Signed On 2022 13:57:18 DIALS INSPECTOR by Nikole Brand M.D.[facility] 12 LEAD EKG 2022-03-22 12 LEAD EKG FOR [facility]P [address] 09:45:59 Test Date: [id number] Name: EDSON CAUSEY Department: 4621Patient ID: [id number] Room: Gender: F Human Factors Ergonomist: : 1960 Requested By: TATYANA LEE Order Number: [id number] Reading MD: Nikole Brand M.D. MeasurementsIntervals [place] Rate: 80 P: AK: 0 QRS: -11QRSD: 104 T: -31QT: 400 QTc: 436 Interpretive StatementsATRIAL FIBRILLATIONMODERATE VOLTAGE CRITERIA FOR LVH, CONSIDER NORMAL VARIANTNONSPECIFIC ST & T-WAVE ABNORMALITYABNORMAL RHYTHM ECGElectronically Signed On 2022 13:57:18 DIALS INSPECTOR by Nikole Brand M.D.[facility] BASIC METABOLIC PANEL 2020-11-04 08:04:00 Test Item Value Reference Range Interpretation Comme nts SODIUM (test code = NA) 148 mmol/L 136-145 H POTASSIUM (test code = K) 2.8 mmol/L 3.5-5.1 Re madi called to JAILYN [id number] V.LAB .OA 11/04/20 0804Critical re madi verified and read back b y Nurse? Y CHLORIDE (test code = CL) 109.0 mmol/L 98-107 H CARBON DIOXIDE (test code = 32.0 mmol/L 21-32 N CO2) ANION GAP (test code = GAP) 9.8 10-20 L GLUCOSE (test code = GLU) 96 mg/dL 74-106 N BLOOD UREA NITROGEN (test 6 mg/dL 7-18 L code = BUN) GLOMERULAR FILTRATION RATE > 60 mL/min See_Comment E stimated GFR by using (test code = GFR) Modified M DRD formula.Chronic kidney disease is defined as either kidney d amageor GFR <60 mL/min/1.73 m2 for >3 months. [Automa laureano message] The system emids generated this result tra nsmitted reference range : >=60. The reference range was not used to interpret th is result as normal/abnormal . CREATININE (test code = 0.40 mg/dL 0.55-1.02 L No te change in reference CREAT) range due to ch holland in reagent. BUN/CREATININE RATIO (test 13.3 10-20 N code = BUN/CREA) CALCIUM (test code = CA) 8.0 mg/dL 8.5-10.1 L CBC W/AUTO [id number] 06:50:00 Test Item Value Reference Range Interpretation Comments WHITE BLOOD CELL (test 6.1 K/mm3 4.5-12.5 N code = WBC) RED BLOOD CELL (test code 3.96 mill/mm3 3.7-5.2 N = RBC) HEMOGLOBIN (test code = 9.5 gram/dL 11.5-15.5 L HGB) HEMATOCRIT (test code = 32.0 % 36.0-46.0 L HCT) MEAN CELL VOLUME (test 80.8 fL 80-98 N code = MCV) MEAN CELL HGB (test code 24.0 picogram 27.0-33.0 L = MCH) MEAN CELL HGB 29.7 gram/dL 33.0-36.0 L CONCETRATION (test code = MCHC) RED CELL DISTRIBUTION 15.6 % 11.6-16.2 N WIDTH (test code = RDW) RED CELL DISTRIBUTION 45.5 fL 37.0-51.0 N WIDTH SD (test code = RDW-SD) PLATELET COUNT (test code 253 K/mm3 150-450 N = PLT) MEAN PLATELET VOLUME 10.2 fL 6.7-11.0 N (test code = MPV) NEUTROPHIL % (test code = 52.6 % 39.0-69.0 N NT%) IMMATURE GRANULOCYTE % 0.3 % 0.0-5.0 N (test code = IG%) LYMPHOCYTE % (test code = 35.9 % 25.0-55.0 N LY%) MONOCYTE % (test code = 6.8 % 0.0-10.0 N MO%) EOSINOPHIL % (test code = 4.1 % 0.0-5.0 N EO%) BASOPHIL % (test code = 0.3 % 0.0-1.0 N BA%) NUCLEATED RBC % (test 0.0 % 0-0 N code = NRBC%) NEUTROPHIL # (test code = 3.18 K/mm3 1.8-7.7 N NT#) IMMATURE GRANULOCYTE # 0.02 x10 3/uL 0-0.03 N (test code = IG#) LYMPHOCYTE # (test code = 2.17 K/mm3 1.0-5.0 N LY#) MONOCYTE # (test code = 0.41 K/mm3 0-0.8 N MO#) EOSINOPHIL # (test code = 0.25 K/mm3 0.0-0.5 N EO#) BASOPHIL # (test code = 0.02 K/mm3 0.0-0.2 N BA#) NUCLEATED RBC # (test 0.00 K/mm3 0.0-0.1 N code = NRBC#) MANUAL DIFF REQUIRED NO, ONLY SCAN NEEDED (test code = MDIFF) DIFFERENTIAL [id number] 06:50:00 Test Item Value Reference Range Interpretation Comments STAIN ACCEPTABILITY (test STAIN ACCEPTABLE code = STN ACCEPTABLE) POIKILOCYTOSIS (test code = 1+ POIK) PLATELET ESTIMATE (test code ADEQUATE = PLTEST) PLATELET MORPHOLOGY (test NORMAL code = PLTMORPH) BASIC METABOLIC [id number] 05:47:00 Test Item Value Reference Range Interpretation Comments SODIUM (test code = 148 mmol/L 136-145 H RESULT V ERIFIED BY NA) REPEAT ANALYSIS POTASSIUM (test code 3.0 mmol/L 3.5-5.1 L = K) CHLORIDE (test code 110.0 mmol/L 98-107 H = CL) CARBON DIOXIDE (test 32.0 mmol/L 21-32 N code = CO2) ANION GAP (test code 9.0 10-20 L = GAP) GLUCOSE (test code = 95 mg/dL 74-106 N GLU) BLOOD UREA NITROGEN 12 mg/dL 7-18 N (test code = BUN) GLOMERULAR > 60 mL/min See_Comment Estimated GFR b y FILTRATION RATE using Modifi ed MDRD (test code = GFR) formula.Ch ronic kidney disease is defined as eith er kidney damageor GFR <60 mL/min/1.73 m2 for >3 months. [Automated mess age] The system emids generated this result transmitted ref erence range: >=60. Th e reference range was not used to int erpret this result as normal/abnormal . CREATININE (test 0.60 mg/dL 0.55-1.02 N Note rincon ge in code = CREAT) reference rang e due to change in reagent. BUN/CREATININE RATIO 20.3 10-20 H (test code = BUN/CREA) CALCIUM (test code = 8.3 mg/dL 8.5-10.1 L CA) CBC W/AUTO [id number] 05:21:00 Test Item Value Reference Range Interpretation Comments WHITE BLOOD CELL (test 6.1 K/mm3 4.5-12.5 N code = WBC) RED BLOOD CELL (test code 3.96 mill/mm3 3.7-5.2 N = RBC) HEMOGLOBIN (test code = 9.5 gram/dL 11.5-15.5 L HGB) HEMATOCRIT (test code = 32.0 % 36.0-46.0 L HCT) MEAN CELL VOLUME (test 80.8 fL 80-98 N code = MCV) MEAN CELL HGB (test code 24.0 picogram 27.0-33.0 L = MCH) MEAN CELL HGB 29.7 gram/dL 33.0-36.0 L CONCETRATION (test code = MCHC) RED CELL DISTRIBUTION 15.6 % 11.6-16.2 N WIDTH (test code = RDW) RED CELL DISTRIBUTION 45.5 fL 37.0-51.0 N WIDTH SD (test code = RDW-SD) PLATELET COUNT (test code 253 K/mm3 150-450 N = PLT) MEAN PLATELET VOLUME 10.2 fL 6.7-11.0 N (test code = MPV) NEUTROPHIL % (test code = 52.6 % 39.0-69.0 N NT%) IMMATURE GRANULOCYTE % 0.3 % 0.0-5.0 N (test code = IG%) LYMPHOCYTE % (test code = 35.9 % 25.0-55.0 N LY%) MONOCYTE % (test code = 6.8 % 0.0-10.0 N MO%) EOSINOPHIL % (test code = 4.1 % 0.0-5.0 N EO%) BASOPHIL % (test code = 0.3 % 0.0-1.0 N BA%) NUCLEATED RBC % (test 0.0 % 0-0 N code = NRBC%) NEUTROPHIL # (test code = 3.18 K/mm3 1.8-7.7 N NT#) IMMATURE GRANULOCYTE # 0.02 x10 3/uL 0-0.03 N (test code = IG#) LYMPHOCYTE # (test code = 2.17 K/mm3 1.0-5.0 N LY#) MONOCYTE # (test code = 0.41 K/mm3 0-0.8 N MO#) EOSINOPHIL # (test code = 0.25 K/mm3 0.0-0.5 N EO#) BASOPHIL # (test code = 0.02 K/mm3 0.0-0.2 N BA#) NUCLEATED RBC # (test 0.00 K/mm3 0.0-0.1 N code = NRBC#) MANUAL DIFF REQUIRED NO, ONLY SCAN NEEDED (test code = MDIFF) DIFFERENTIAL [id number] 05:21:00 Test Item Value Reference Range Interpretation Comments STAIN ACCEPTABILITY (test code = STN ACCEPTABLE) CABOT RINGS (test code = CAB) MORPHOLOGY COMMENT (test code = MOC) PLATELET ESTIMATE (test code = PLTEST) PLATELET MORPHOLOGY (test code = PLTMORPH) CBC W/AUTO [id number] 05:21:00 Test Item Value Reference Range Interpretation Comments WHITE BLOOD CELL (test 6.1 K/mm3 4.5-12.5 N code = WBC) RED BLOOD CELL (test code 3.96 mill/mm3 3.7-5.2 N = RBC) HEMOGLOBIN (test code = 9.5 gram/dL 11.5-15.5 L HGB) HEMATOCRIT (test code = 32.0 % 36.0-46.0 L HCT) MEAN CELL VOLUME (test 80.8 fL 80-98 N code = MCV) MEAN CELL HGB (test code 24.0 picogram 27.0-33.0 L = MCH) MEAN CELL HGB 29.7 gram/dL 33.0-36.0 L CONCETRATION (test code = MCHC) RED CELL DISTRIBUTION 15.6 % 11.6-16.2 N WIDTH (test code = RDW) RED CELL DISTRIBUTION 45.5 fL 37.0-51.0 N WIDTH SD (test code = RDW-SD) PLATELET COUNT (test code 253 K/mm3 150-450 N = PLT) MEAN PLATELET VOLUME 10.2 fL 6.7-11.0 N (test code = MPV) NEUTROPHIL % (test code = 52.6 % 39.0-69.0 N NT%) IMMATURE GRANULOCYTE % 0.3 % 0.0-5.0 N (test code = IG%) LYMPHOCYTE % (test code = 35.9 % 25.0-55.0 N LY%) MONOCYTE % (test code = 6.8 % 0.0-10.0 N MO%) EOSINOPHIL % (test code = 4.1 % 0.0-5.0 N EO%) BASOPHIL % (test code = 0.3 % 0.0-1.0 N BA%) NUCLEATED RBC % (test 0.0 % 0-0 N code = NRBC%) NEUTROPHIL # (test code = 3.18 K/mm3 1.8-7.7 N NT#) IMMATURE GRANULOCYTE # 0.02 x10 3/uL 0-0.03 N (test code = IG#) LYMPHOCYTE # (test code = 2.17 K/mm3 1.0-5.0 N LY#) MONOCYTE # (test code = 0.41 K/mm3 0-0.8 N MO#) EOSINOPHIL # (test code = 0.25 K/mm3 0.0-0.5 N EO#) BASOPHIL # (test code = 0.02 K/mm3 0.0-0.2 N BA#) NUCLEATED RBC # (test 0.00 K/mm3 0.0-0.1 N code = NRBC#) MANUAL DIFF REQUIRED NO, ONLY SCAN NEEDED (test code = MDIFF) DIFFERENTIAL [id number] 05:21:00 Test Item Value Reference Range Interpretation Comments STAIN ACCEPTABILITY (test code = STN ACCEPTABLE) CABOT RINGS (test code = CAB) MORPHOLOGY COMMENT (test code = MOC) PLATELET ESTIMATE (test code = PLTEST) PLATELET MORPHOLOGY (test code = PLTMORPH) CBC W/AUTO [id number] 05:21:00 Test Item Value Reference Range Interpretation Comments WHITE BLOOD CELL (test 6.1 K/mm3 4.5-12.5 N code = WBC) RED BLOOD CELL (test code 3.96 mill/mm3 3.7-5.2 N = RBC) HEMOGLOBIN (test code = 9.5 gram/dL 11.5-15.5 L HGB) HEMATOCRIT (test code = 32.0 % 36.0-46.0 L HCT) MEAN CELL VOLUME (test 80.8 fL 80-98 N code = MCV) MEAN CELL HGB (test code 24.0 picogram 27.0-33.0 L = MCH) MEAN CELL HGB 29.7 gram/dL 33.0-36.0 L CONCETRATION (test code = MCHC) RED CELL DISTRIBUTION 15.6 % 11.6-16.2 N WIDTH (test code = RDW) RED CELL DISTRIBUTION 45.5 fL 37.0-51.0 N WIDTH SD (test code = RDW-SD) PLATELET COUNT (test code 253 K/mm3 150-450 N = PLT) MEAN PLATELET VOLUME 10.2 fL 6.7-11.0 N (test code = MPV) NEUTROPHIL % (test code = 52.6 % 39.0-69.0 N NT%) IMMATURE GRANULOCYTE % 0.3 % 0.0-5.0 N (test code = IG%) LYMPHOCYTE % (test code = 35.9 % 25.0-55.0 N LY%) MONOCYTE % (test code = 6.8 % 0.0-10.0 N MO%) EOSINOPHIL % (test code = 4.1 % 0.0-5.0 N EO%) BASOPHIL % (test code = 0.3 % 0.0-1.0 N BA%) NUCLEATED RBC % (test 0.0 % 0-0 N code = NRBC%) NEUTROPHIL # (test code = 3.18 K/mm3 1.8-7.7 N NT#) IMMATURE GRANULOCYTE # 0.02 x10 3/uL 0-0.03 N (test code = IG#) LYMPHOCYTE # (test code = 2.17 K/mm3 1.0-5.0 N LY#) MONOCYTE # (test code = 0.41 K/mm3 0-0.8 N MO#) EOSINOPHIL # (test code = 0.25 K/mm3 0.0-0.5 N EO#) BASOPHIL # (test code = 0.02 K/mm3 0.0-0.2 N BA#) NUCLEATED RBC # (test 0.00 K/mm3 0.0-0.1 N code = NRBC#) MANUAL DIFF REQUIRED NO, ONLY SCAN NEEDED (test code = MDIFF) DIFFERENTIAL [id number] 05:21:00 Test Item Value Reference Range Interpretation Comments STAIN ACCEPTABILITY (test code = STN ACCEPTABLE) MORPHOLOGY COMMENT (test code = MOC) PLATELET ESTIMATE (test code = PLTEST) PLATELET MORPHOLOGY (test code = PLTMORPH) CBC W/AUTO [id number] 05:21:00 Test Item Value Reference Range Interpretation Comments WHITE BLOOD CELL (test 6.1 K/mm3 4.5-12.5 N code = WBC) RED BLOOD CELL (test code 3.96 mill/mm3 3.7-5.2 N = RBC) HEMOGLOBIN (test code = 9.5 gram/dL 11.5-15.5 L HGB) HEMATOCRIT (test code = 32.0 % 36.0-46.0 L HCT) MEAN CELL VOLUME (test 80.8 fL 80-98 N code = MCV) MEAN CELL HGB (test code 24.0 picogram 27.0-33.0 L = MCH) MEAN CELL HGB 29.7 gram/dL 33.0-36.0 L CONCETRATION (test code = MCHC) RED CELL DISTRIBUTION 15.6 % 11.6-16.2 N WIDTH (test code = RDW) RED CELL DISTRIBUTION 45.5 fL 37.0-51.0 N WIDTH SD (test code = RDW-SD) PLATELET COUNT (test code 253 K/mm3 150-450 N = PLT) MEAN PLATELET VOLUME 10.2 fL 6.7-11.0 N (test code = MPV) NEUTROPHIL % (test code = 52.6 % 39.0-69.0 N NT%) IMMATURE GRANULOCYTE % 0.3 % 0.0-5.0 N (test code = IG%) LYMPHOCYTE % (test code = 35.9 % 25.0-55.0 N LY%) MONOCYTE % (test code = 6.8 % 0.0-10.0 N MO%) EOSINOPHIL % (test code = 4.1 % 0.0-5.0 N EO%) BASOPHIL % (test code = 0.3 % 0.0-1.0 N BA%) NUCLEATED RBC % (test 0.0 % 0-0 N code = NRBC%) NEUTROPHIL # (test code = 3.18 K/mm3 1.8-7.7 N NT#) IMMATURE GRANULOCYTE # 0.02 x10 3/uL 0-0.03 N (test code = IG#) LYMPHOCYTE # (test code = 2.17 K/mm3 1.0-5.0 N LY#) MONOCYTE # (test code = 0.41 K/mm3 0-0.8 N MO#) EOSINOPHIL # (test code = 0.25 K/mm3 0.0-0.5 N EO#) BASOPHIL # (test code = 0.02 K/mm3 0.0-0.2 N BA#) NUCLEATED RBC # (test 0.00 K/mm3 0.0-0.1 N code = NRBC#) MANUAL DIFF REQUIRED NO, ONLY SCAN NEEDED (test code = MDIFF) DIFFERENTIAL [id number] 05:21:00 Test Item Value Reference Range Interpretation Comments STAIN ACCEPTABILITY (test code = STN ACCEPTABLE) CABOT RINGS (test code = CAB) MORPHOLOGY COMMENT (test code = MOC) PLATELET ESTIMATE (test code = PLTEST) PLATELET MORPHOLOGY (test code = PLTMORPH) BASIC METABOLIC [id number] 18:57:00 Test Item Value Reference Range Interpretation Comments SODIUM (test code = 141 mmol/L 136-145 N NA) POTASSIUM (test code 3.2 mmol/L 3.5-5.1 L = K) CHLORIDE (test code 105.0 mmol/L 98-107 N = CL) CARBON DIOXIDE (test 32.0 mmol/L 21-32 N code = CO2) ANION GAP (test code 7.2 10-20 L = GAP) GLUCOSE (test code = 114 mg/dL 74-106 H GLU) BLOOD UREA NITROGEN 17 mg/dL 7-18 N (test code = BUN) GLOMERULAR > 60 mL/min See_Comment Estimated GFR b y FILTRATION RATE using Modifi ed MDRD (test code = GFR) formula.Ch ronic kidney disease is defined as eith er kidney damageor GFR <60 mL/min/1.73 m2 for >3 months. [Automated mess age] The system whic h generated this result transmitted ref erence range: >=60. Th e reference range was not used to int erpret this result as normal/abnormal . CREATININE (test 0.60 mg/dL 0.55-1.02 N Note rincon ge in code = CREAT) reference rang e due to change in reagent. BUN/CREATININE RATIO 27.4 10-20 H (test code = BUN/CREA) CALCIUM (test code = 8.8 mg/dL 8.5-10.1 N CA) [id number] 18:57:00 Test Item Value Reference Range Interpretation Comments MAGNESIUM (test code = MAG) 1.8 mg/dL 1.8-2.4 N [id number] 09:52:00 Test Item Value Reference Range Interpretation Comments TROPONIN-I (test code = TROPI) 0.007 ng/mL 0-0.045 N COMMENTS TO ONE PIECE EXPANSION MAKER HAND: COLLECT 3 HOURS AFTER PREVIOUS SAMPLEURINALYSIS [id number] 07:57:00 Test Item Value Reference Range Interpretation Comments UA COLOR (test code = Light-Yellow YELLOW COLU) UA APPEARANCE (test code Cloudy CLEAR A = APPU) UA GLUCOSE DIPSTICK (test 150 (1+) mg/dL NEGATIVE A code = DGLUU) UA BILIRUBIN DIPSTICK NEGATIVE mg/dL NEGATIVE (test code = BILU) UA KETONE DIPSTICK (test NEGATIVE mg/dL NEGATIVE code = KETU) UA SPECIFIC GRAVITY (test 1.016 1.001-1.035 code = SGU) UA BLOOD DIPSTICK (test 0.06 mg/dL (1+) NEGATIVE A code = BARBARA) mg/dL UA PH DIPSTICK (test code 6.0 5.0-8.0 = ZOE) UA PROTEIN DIPSTICK (test 10 (Trace) mg/dL NEGATIVE A code = PROU) UA UROBILINIOGEN DIPSTICK Normal mg/dL NEGATIVE (test code = URO) UA NITRITE DIPSTICK (test NEGATIVE NEGATIVE code = RAISA) UA LEUKOCYTE ESTERASE W 250 Toshia/uL (2+) NEGATIVE A REFLEX (test code = Toshia/uL LEUUR) UA WBC (test code = WBCU) 21-50 per HPF 0-5 A UA RBC (test code = RBCU) 0-2 #/HPF 0-5 UA EPITHELIAL CELLS (test MANY per HPF FEW code = EPIU) UA BACTERIA (test code = MODERATE #/HPF NONE A BACU) UA HYALINE CAST (test 6-10 #/LPF 0-5 A code = HYALU) UA MUCUS (test code = FEW #/LPF FEW MUCU) Urine Source? Clean CatchDRUGS OF ABUSE SCREEN [id number] 07:57:00 Test Item Value Reference Range Interpretation Comments URN COCAINE (test code = NEGATIVE See_Comment [A utomated message] COCAURN) The system emids generated this result transmitted ref erence range: <300 ng/ mL. The reference r holland was not used to interpret this result as normal/abnor mal. URN CANNABINOIDS (test NEGATIVE See_Comment [Aut omated message] code = CANNABURN) The system which generated this result transmitted ref erence range: <50 ng/m L. The reference range was not used to int erpret this result as normal/abnormal . URN AMPHETAMINE (test NEGATIVE See_Comment [Auto mated message] code = AMPHETURN) The system which generated this result transmitted ref erence range: <1000 ng /mL. The reference r holland was not used to interpret this result as normal/abnor mal. URN BARBITURATE (test NEGATIVE See_Comment [Auto mated message] code = BARBITURN) The system which generated this result transmitted ref erence range: <200 ng/ mL. The reference r holland was not used to interpret this result as normal/abnor mal. URN BENZODIAZEPINE (test NEGATIVE See_Comment [A utomated message] code = BENZOURN) The system which generated this result transmitted ref erence range: <200 ng/ mL. The reference r holland was not used to interpret this result as normal/abnor mal. URN OPIATES (test code = NEGATIVE See_Comment [A utomated message] OPIATURN) The system emids generated this result transmitted ref erence range: <300 ng/ mL. The reference r holland was not used to interpret this result as normal/abnor mal. URN PHENCYCLIDINE (PCP) NEGATIVE See_Comment [Au tomated message] (test code = PHENCURN) The s ystem which generated this result transmitted ref erence range: <25 ng/m L. The reference range was not used to int erpret this result as normal/abnormal . URN METHADONE (test code NEGATIVE See_Comment [A utomated message] = METHAURN) The system emids generated this result transmitted ref erence range: <300 ng/ mL. The reference r holland was not used to interpret this result as normal/abnor mal. Urine Source? Clean CatchURINALYSIS [id number] 07:30:00 Test Item Value Reference Range Interpretation Comments UA COLOR (test code = Light-Yellow YELLOW COLU) UA APPEARANCE (test code Cloudy CLEAR A = APPU) UA GLUCOSE DIPSTICK (test 150 (1+) mg/dL NEGATIVE A code = DGLUU) UA BILIRUBIN DIPSTICK NEGATIVE mg/dL NEGATIVE (test code = BILU) UA KETONE DIPSTICK (test NEGATIVE mg/dL NEGATIVE code = KETU) UA SPECIFIC GRAVITY (test 1.016 1.001-1.035 code = SGU) UA BLOOD DIPSTICK (test 0.06 mg/dL (1+) NEGATIVE A code = BARBARA) mg/dL UA PH DIPSTICK (test code 6.0 5.0-8.0 = ZOE) UA PROTEIN DIPSTICK (test 10 (Trace) mg/dL NEGATIVE A code = PROU) UA UROBILINIOGEN DIPSTICK Normal mg/dL NEGATIVE (test code = URO) UA NITRITE DIPSTICK (test NEGATIVE NEGATIVE code = RAISA) UA LEUKOCYTE ESTERASE W 250 Toshia/uL (2+) NEGATIVE A REFLEX (test code = Toshia/uL LEUUR) UA WBC (test code = WBCU) 21-50 per HPF 0-5 A UA RBC (test code = RBCU) 0-2 #/HPF 0-5 UA EPITHELIAL CELLS (test MANY per HPF FEW code = EPIU) UA BACTERIA (test code = MODERATE #/HPF NONE A BACU) UA HYALINE CAST (test 6-10 #/LPF 0-5 A code = HYALU) UA MUCUS (test code = FEW #/LPF FEW MUCU) Urine Source? Clean CatchDRUGS OF ABUSE SCREEN [id number] 07:30:00 Test Item Value Reference Range Interpretation Comments URN COCAINE (test code = See_Comment [A utomated message] COCAURN) The system emids generated this result transmitted ref erence range: <300 ng/ mL. The reference range was not used to int erpret this result as normal/abnormal . URN CANNABINOIDS (test See_Comment [Aut omated message] code = CANNABURN) The system which generated this result transmitted ref erence range: <50 ng/m L. The reference range was not used to int erpret this result as normal/abnormal . URN AMPHETAMINE (test code See_Comment [Automated message] = AMPHETURN) The system emids generated this result transmitted ref erence range: <1000 ng /mL. The reference r holland was not used to interpret this result as normal/abnor mal. URN BARBITURATE (test code See_Comment [Automated message] = BARBITURN) The system emids generated this result transmitted ref erence range: <200 ng/ mL. The reference range was not used to int erpret this result as normal/abnormal . URN BENZODIAZEPINE (test See_Comment [A utomated message] code = BENZOURN) The system which generated this result transmitted ref erence range: <200 ng/ mL. The reference range was not used to int erpret this result as normal/abnormal . URN OPIATES (test code = See_Comment [A utomated message] OPIATURN) The system emids generated this result transmitted ref erence range: <300 ng/ mL. The reference range was not used to int erpret this result as normal/abnormal . URN PHENCYCLIDINE (PCP) See_Comment [Au tomated message] (test code = PHENCURN) [facility] which generated this result transmitted ref erence range: <25 ng/m L. The reference range was not used to int erpret this result as normal/abnormal . URN METHADONE (test code = See_Comment [Automated message] METHAURN) The system emids generated this result transmitted ref erence range: <300 ng/ mL. The reference range was not used to int erpret this result as normal/abnormal . Urine Source? Clean CatchCOMPREHENSIVE METABOLIC [id number] 07:16:00 Test Item Value Reference Range Interpretation Comments SODIUM (test code = 145 mmol/L 136-145 N NA) POTASSIUM (test code 2.3 mmol/L 3.5-5.1 LL Results called to = K) [id number] by [id number] 10/20 09/09 0714Critical re sults verified and re ad back by Nurse? Y CHLORIDE (test code = 104.0 mmol/L 98-107 N CL) CARBON DIOXIDE (test 32.0 mmol/L 21-32 N code = CO2) ANION GAP (test code 11.3 10-20 N = GAP) GLUCOSE (test code = 108 mg/dL 74-106 H GLU) BLOOD UREA NITROGEN 21 mg/dL 7-18 H (test code = BUN) GLOMERULAR FILTRATION > 60 mL/min See_Comment Estima laureano GFR by RATE (test code = using Stephanie fied MDRD GFR) formula.Chronic kidney disease is defined as eith er kidney damageor GFR <60 mL/min/1.73 m2 for >3 months. [Automated mess age] The system emids generated this result transmit laureano reference range : >=60. The refer ence range was not u sed to interpret th is result as normal/abnormal . CREATININE (test code 0.70 mg/dL 0.55-1.02 N Note change in = CREAT) reference range due to change in reagent. BUN/CREATININE RATIO 31.3 10-20 H (test code = BUN/CREA) TOTAL PROTEIN (test 6.1 gram/dL 6.4-8.2 L code = PROT) ALBUMIN (test code = 3.2 g/dL 3.4-5.0 L ALB) GLOBULIN (test code = 2.9 gram/dL 2.7-4.2 N GLOB) ALBUMIN/GLOBULIN 1.1 0.75-1.50 N RATIO (test code = A/G) CALCIUM (test code = 8.8 mg/dL 8.5-10.1 N CA) BILIRUBIN TOTAL (test 0.30 mg/dL 0.0-1.0 N code = BILT) SGOT/AST (test code = 14 IUnit/L 15-37 L AST) SGPT/ALT (test code = 9 IUnit/L 12-78 L ALT) ALKALINE PHOSPHATASE 97 IUnit/L 45-117 N Note change in TOTAL (test code = reference range due ALKP) to change in reagent. [id number] 06:57:00 Test Item Value Reference Range Interpretation Comments TROPONIN-I (test code = TROPI) 0.009 ng/mL 0-0.045 N [id number] 06:57:00 Test Item Value Reference Range Interpretation Comments MAGNESIUM (test code = MAG) 2.7 mg/dL 1.8-2.4 H [id number] 06:32:00 Test Item Value Reference Range Interpretation Comments AMMONIA (test code = AMM) 27 umol/L 11-32 N CBC W/AUTO [id number] 06:09:00 Test Item Value Reference Range Interpretation Comments WHITE BLOOD CELL (test code = 6.6 K/mm3 4.5-12.5 N WBC) RED BLOOD CELL (test code = 4.18 mill/mm3 3.7-5.2 N RBC) HEMOGLOBIN (test code = HGB) 10.2 gram/dL 11.5-15.5 L HEMATOCRIT (test code = HCT) 33.3 % 36.0-46.0 L MEAN CELL VOLUME (test code = 79.7 fL 80-98 L MCV) MEAN CELL HGB (test code = MCH) 24.4 picogram 27.0-33.0 L MEAN CELL HGB CONCETRATION 30.6 gram/dL 33.0-36.0 L (test code = MCHC) RED CELL DISTRIBUTION WIDTH 15.3 % 11.6-16.2 N (test code = RDW) RED CELL DISTRIBUTION WIDTH SD 44.1 fL 37.0-51.0 N (test code = RDW-SD) PLATELET COUNT (test code = 274 K/mm3 150-450 N PLT) MEAN PLATELET VOLUME (test code 10.1 fL 6.7-11.0 N = MPV) NEUTROPHIL % (test code = NT%) 54.5 % 39.0-69.0 N IMMATURE GRANULOCYTE % (test 0.2 % 0.0-5.0 N code = IG%) LYMPHOCYTE % (test code = LY%) 35.4 % 25.0-55.0 N MONOCYTE % (test code = MO%) 7.8 % 0.0-10.0 N EOSINOPHIL % (test code = EO%) 1.8 % 0.0-5.0 N BASOPHIL % (test code = BA%) 0.3 % 0.0-1.0 N NUCLEATED RBC % (test code = 0.0 % 0-0 N NRBC%) NEUTROPHIL # (test code = NT#) 3.62 K/mm3 1.8-7.7 N IMMATURE GRANULOCYTE # (test 0.01 x10 3/uL 0-0.03 N code = IG#) LYMPHOCYTE # (test code = LY#) 2.35 K/mm3 1.0-5.0 N MONOCYTE # (test code = MO#) 0.52 K/mm3 0-0.8 N EOSINOPHIL # (test code = EO#) 0.12 K/mm3 0.0-0.5 N BASOPHIL # (test code = BA#) 0.02 K/mm3 0.0-0.2 N NUCLEATED RBC # (test code = 0.00 K/mm3 0.0-0.1 N NRBC#) MANUAL DIFF REQUIRED (test code NO = MDIFF) [id number] 03:17:00 Test Item Value Reference Range Interpretation Comments TROPONIN-I (test code = TROPI) 0.016 ng/mL 0-0.045 N COMMENTS TO ONE PIECE EXPANSION MAKER HAND: COLLECT 3 HOURS AFTER PREVIOUS SAMPLELIPID PROFILE (CORONARY RISK)2020-11-01 23:26:00 Test Item Value Reference Range Interpretation Comments TRIGLYCERIDES (test 212 mg/dL 20-150 H code = TRIG) CHOLESTEROL (test code 216 mg/dL 0-200 H = CHOL) CHOLESTEROL/HDL RATIO 4.0 RATIO 0-4.9 N RISK A SSOCIATED WITH (test code = CHOLHDL) CHOL/H DL RATIOS: Risk Male Female1/2 AVERAGE 3.43 3.27AVERAG E 4.97 4.442X AVERAGE 9.55 7.053X AVERAGE 23.39 11.04 REFERENCE VALUE IS RELATED TO R ISK LEVELS ASRECOMM ENDED BY THE ARCENIO. HEA RT, LUNG, AND BLOOD INST. HDL CHOLESTEROL (test 54 mg/dL 40-60 N code = HDL) LIPOPROTEIN LDL (test 148 mg/dL 100-129 H RN PER MAURI, CONTACT code = LDL) PHYSICIAN IMMED IATELY IF THIS IS A [facility] [place], AMI OR CAROTID STENOSIS PATIEN T WHEN THE LDL >100 ([address] OCCURENCE, THIS ADMISSION)===== ======= ======= ======= ===Reference In terval: mg/dL mmol/L--------- ------- ------- ------O ptimal <100 <2.6Near/above optimal 100-129 2.6-3.3Borderli ne High 130-159 3.4-4.1 High 160-189 4.1-4.9 Very High >=190 >=4.9========= This LDL result is a direct measurement.=== ====== FE W/TOTAL IRON BINDING CAP.2020-11-01 23:26:00 Test Item Value Reference Range Interpretation Comments SERUM IRON (test code = IRON) 37 ug/dL 50-175 L TOTAL IRON BINDING CAPACITY (test 431 mcg/dL 250-450 N code = TIBC) IRON SATURATION (test code = 8.58 % 13-45 L FESAT) VITAMIN [id number] 23:26:00 Test Item Value Reference Range Interpretation Comments VITAMIN B12 (test code = VITB12) 366 pg/mL 193-986 N THYROID STIMULATING [id number] 23:26:00 Test Item Value Reference Range Interpretation Comments THYROID STIMULATING 1.908 uIU/mL 0.36-3.74 N TSH REFE RENCE HORMONE (test code = RANGES: EUTHYROID: TSH) 0.35 - 4.3 mIU/ mL HYPO : > 5.5 mI U/mL HYPER : < 0.35 mIU/mL [id number] 23:26:00 Test Item Value Reference Range Interpretation Comments FERRITIN (test code = ANNE) 14 ng/mL 8-388 N [id number] 23:20:00 Test Item Value Reference Range Interpretation Comments GLYCOSYLATED HEMOGLOBIN 6.1 % HbA1 MARLEN CASSIDY DIAGNOSIS: (HA1C) (test code = HbA1C GLYHGB) (%) ----- ----- Diab etic >6.4Prediabetes 5.7 - 6.4Normal <5. 7 ESTIMATED AVERAGE 128 MG/DL GLUCOSE (test code = EAG) - CT HEAD/BRAIN W/O [id number] 23:00:00 [facility])Name: KRISTEN CAUSEY : 1960 Sex: F Name: KRISTEN CAUSEY [facility] : 1960 Age/S: 60 / F [address] [facility] Unit #: [id number] Loc: [place] [address] Phys: Francesca Dodd MD Acct: [id number] Dis Date: Status: ADM IN PHONE #: [phone] Exam Date: 11/01/20202244 FAX #: [phone] Reason: confusion EXAMS: CPT CODE: [id number] CT HEAD/BRAIN W/O CONT 88450 EXAM: - CT HEAD/BRAIN W/O CONT LOCATION: C3 HISTORY: 60 years-year old Female with confusion TECHNIQUE: Computerized tomography images from the skull base to the vertex were obtained. Coronal and sagittal reformatted images are provided. This exam was performed according to our departmental dose-optimization program, which includes automated exposure control, adjustment of the mA and/or kV according to patient size and/or use of iterative reconstruction technique COMPARISON: None FINDINGS: Brain: The brain parenchymal architecture is unremarkable. The brain parenchyma is age appropriate. There is no evidence of an acute territorial infarct. Hemorrhage: There is no CT evidence of acute intracranial hemorrhage. Mass/edema: There is no CTevidence of mass effect, midline shift, or parenchymal edema. Ventricles: There is no evidence of hydrocephalus. Bones: There is no evidence of acute displaced calvarial fracture. Sinuses: The visualized portions of the paranasal sinuses and mastoid air cells are free of significant opacification. Other/Soft Tissues: Unremarkable. IMPRESSION: 1. No CT evidence of acute intracranial abnormality. PAGE 1 Signed Report (CONTINUED) Name: KRISTEN CAUSEY [facility] : 1960 Age/S: 60 / F [address] Unit #: [id number] Loc: [place] [address] Phys: Francesca Dodd MD Acct: [id number] Dis Date: Status: ADM IN PHONE #: [phone] Exam Date: 11/01/2020 2245 FAX #: [phone] Reason: confusion EXAMS: CPT CODE: [id number] CT HEAD/BRAIN W/O CONT 56188 (Continued) at 2300 Reported and signed by: Triston Ashraf M.D. CC: Francesca Dodd MD Technologist:SHARA HOPKINS CTDI: DLP: Trnscb Date/Time: 11/01/2020 (2300) [id number].[email or web address] Orig Print D/T: S: 11/01/2020 (2304) PAGE 2 Signed ReportCOVID 19 Asymptomatic IH [id number] 21:54:00 Test Item Value Reference Range Interpretation Comments COVID 19 Asymptomatic IH AG (test NEGATIVE NEGATIVE code = COVNONPUIAG) PROTHROMBIN [id number] 19:24:00 Test Item Value Reference Range Interpretation Comments PROTHROMBIN TIME 12.2 seconds 9.0-14.0 N PATIENT (test code = PTP) INTERNATIONAL NORMAL 1.1 0.8-1.2 N The the rapeutic range RATIO (test code = for oral INR) anticoagulant t herapy formost indicat ions is an internati onal normalized rati o (INR)of between 2.0 and 3.0. The recommended therapeutic INR range for various cli nical situations is l isted below: Clinical Situat ion INR range Pulmonary embol ism treatment (2.0-3.0)Venous thrombosis treatmentVenous thrombosis prophylaxis (hi gh risk surgery)Prevent ion of systemic emboli sm from: Acute myocardial infa rction Valvular heart disease Atrial fibrillation Mechanical pros thetic heart valves (2.5-3.5) IS PATIENT ON ANTICOAGULANTS? NTHROMBOPLASTIN TIME [id number] 19:24:00 Test Item Value Reference Range Interpretation Comments THROMBOPLASTIN TIME PARTIAL 26.8 seconds 23.0-37.0 N (test code = PTT) IS PATIENT ON ANTICOAGULANTS? NHEPATIC FUNCTION [id number] 19:19:00 Test Item Value Reference Range Interpretation Comments TOTAL PROTEIN (test 6.9 gram/dL 6.4-8.2 N code = PROT) ALBUMIN (test code = 3.8 g/dL 3.4-5.0 N ALB) GLOBULIN (test code = 3.1 gram/dL 2.7-4.2 N GLOB) ALBUMIN/GLOBULIN RATIO 1.2 0.75-1.50 N (test code = A/G) BILIRUBIN TOTAL (test 0.30 mg/dL 0.0-1.0 N code = BILT) BILIRUBIN DIRECT (test < 0.10 mg/dL 0.0-0.20 N code = BILD) SGOT/AST (test code = 18 IUnit/L 15-37 N AST) SGPT/ALT (test code = 10 IUnit/L 12-78 L ALT) ALKALINE PHOSPHATASE 110 IUnit/L 45-117 N Note change in TOTAL (test code = reference range due ALKP) to change in reagent. [id number] 19:19:00 Test Item Value Reference Range Interpretation Comments LIPASE (test code = LIP) 39 U/L 12.00-57.00 N [id number] 19:19:00 Test Item Value Reference Range Interpretation Comments MAGNESIUM (test code = MAG) 1.1 mg/dL 1.8-2.4 L [id number] 19:19:00 Test Item Value Reference Range Interpretation Comments TROPONIN-I (test code = TROPI) 0.008 ng/mL 0-0.045 N [id number] 19:19:00 Test Item Value Reference Range Interpretation Comments ALCOHOL (test code = 5 mg/dL 0.0-3.0 H ------- INTERPRET ALC) BLANCA DATA NOTE: POSITIVE SCREEN ING RESULTS SHOULD BE CONSI DERED PRESUMPTIVE.WHE N COLLECTED FOR MEDICAL PUR POSES ONLY. SPECIMEN WILL N OTBE COLLECTED BY URI OF CUSTODY.IF A CO NFIRMATION OF POSITIVE RES ULTS IS DESIRED, ACONFI RMATION TEST MUST BE RE QUESTED BY THE PHYSICIAN Alvaro T ANADDITIONAL CH ARGE TO THE PATIENT. BASIC METABOLIC [id number] 19:19:00 Test Item Value Reference Range Interpretation Comments SODIUM (test code = 142 mmol/L 136-145 N NA) POTASSIUM (test code 2.2 mmol/L 3.5-5.1 LL Results called to = K) [id number] by a.ST ObrienPN14 11/01/201918Cr itical results verifie d and read back by Nu rse? Y CHLORIDE (test code 102.0 mmol/L 98-107 N = CL) CARBON DIOXIDE (test 33.0 mmol/L 21-32 H code = CO2) ANION GAP (test code 9.2 10-20 L = GAP) GLUCOSE (test code = 125 mg/dL 74-106 H GLU) BLOOD UREA NITROGEN 17 mg/dL 7-18 N (test code = BUN) GLOMERULAR 38 mL/min See_Comment Estimated GFR b y FILTRATION RATE using Modifi ed MDRD (test code = GFR) formula. linda kidney disease is defined as eith er kidney damageor GFR <60 mL/min/1.73 m2 for >3 months. [Automated mess age] The system emids generated this result transmitted ref erence range: >=60. Th e reference range was not used to int erpret this result as normal/abnormal . CREATININE (test 1.40 mg/dL 0.55-1.02 H Note rincon ge in code = CREAT) reference rang e due to change in reagent. BUN/CREATININE RATIO 12.5 10-20 N (test code = BUN/CREA) CALCIUM (test code = 9.0 mg/dL 8.5-10.1 N CA) CBC W/O [id number] 19:01:00 Test Item Value Reference Range Interpretation Comments WHITE BLOOD CELL (test code = 8.1 K/mm3 4.5-12.5 N WBC) RED BLOOD CELL (test code = 4.68 mill/mm3 3.7-5.2 N RBC) HEMOGLOBIN (test code = HGB) 11.4 gram/dL 11.5-15.5 L HEMATOCRIT (test code = HCT) 36.8 % 36.0-46.0 N MEAN CELL VOLUME (test code = 78.6 fL 80-98 L MCV) MEAN CELL HGB (test code = MCH) 24.4 picogram 27.0-33.0 L MEAN CELL HGB CONCETRATION 31.0 gram/dL 33.0-36.0 L (test code = MCHC) RED CELL DISTRIBUTION WIDTH 15.1 % 11.6-16.2 N (test code = RDW) PLATELET COUNT (test code = 285 K/mm3 150-450 N PLT) MEAN PLATELET VOLUME (test code 11.0 fL 6.7-11.0 N = MPV) [id number] 18:50:00 Test Item Value Reference Range Interpretation Comments GLUBED (test code = 126 mg/dL 74-106 H Performe d by certified GLUBED) 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 ([facility])Name: KRISTEN CAUSEY : 1960 Sex: F FAX: Peg Aponte [phone] [place]: St: REG Name: KRISTEN CAUSEY [facility] : 1960 Age/S: 60/F [address] Unit #: [id number] Loc: [place] [address] Phys: Peg Allan MD Acct: [id number] Dis Date: Status: REG ER PHONE #: [phone] Exam Date: 11/01/2020 1610 FAX #: [phone] Reason: WEAKNESS EXAMS: CPT CODE: [id number] XR CHEST 1 V 44095 HISTORY: WEAKNESS TECHNIQUE: AP chest x-ray COMPARISON: 02/08/20 FINDINGS: No airspace consolidation or pleural effusion. Normal heart size. Mediastinal silhouette is unremarkable. Thoracic spondylosis. Lower cervical fusion. IMPRESSION: No radiographic evidence of acute cardiopulmonary process. LOCATION: at 1627 Reported and signed by: Maria Teresa Horton D.O. CC: Peg Allan MD Technologist: TRES ANTHONY RT; Jo-Ann Jung(Antoinette) Trnscrd Date/Time/By: 11/01/2020 (1627) : By: [email or web address] Orig Print D/T: S: 11/01/2020 (6689) PAGE 1 Signed Report- CTA [id number] 16:02:00 Name: KRISTEN CAUSEY [facility] : 1960 Age/S: 59 / F [address] Unit #: [id number] Loc: [place] [address] Phys: Sadaf Rivero MD Acct: [id number] Dis Date: Status: ADM IN PHONE #: [phone] Exam Date: 02/11/2020 1109 FAX #: [phone] Reason: Stroke EXAMS: CPT CODE: [id number] CTA NECK 17965 HISTORY: Stroke and confusion. COMPARISON: None available. Location: [facility]. CTA NECK: 3-D images. 100 mL of Isovue-370. Automated exposure control. NASCET criteria. Lung bases are clear with dependent changes. DJD of the cervical spine with cervical fusion noted. Superior mediastinum is unremarkable. No pathologic adenopathy. Patent airway. Symmetrical fossa of Rosenmueller. Visualized brain parenchyma enhances homogeneously. RIGHT SIDE: Subclavian artery is widely patent. Codominant vertebral artery is patent. CCA is widely patent. ICA and ECA are widely patent. Small soft plaque at the carotid bulb which is not hemodynamically significant. LEFT SIDE: Subclavian artery is widely patent. Codominant vertebral artery is widely patent. CCA is widely patent. Hard and softplaque at the carotid bulb anteriorly which is not hemodynamically significant. ICA and ECA are widely patent. IMPRESSION: No hemodynamically significant stenosis. No aneurysm within the neck. 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 at 1602 Reported and signed by: Tato Rangel M.D. CC: Sadaf Rivero MD; Julio Charles MD Technologist:Marisa Duarte,RT(R),CT CTDI: DLP: Trnscb Date/Time: 02/11/2020 (1602) t.SDR.TH4 Orig Print D/T: S: 02/11/2020 (9807) PAGE 1 Signed Report- MRI BRAIN W/O [id number] 09:46:00 FAX: Sadaf Weber [phone] [place]: B St: ADM FAX: Julio Avila Name: KRISTEN CAUSEY [facility] : 1960 Age/S: 59/F [address] [facility] Unit #: [id number] Loc: V.20[address] [place] [address] Phys: Sadaf Rivero MD Acct: [id number] Dis Date: Status: ADM IN PHONE #: [phone] Exam Date: 02/10/2020930 FAX #: [phone] Reason: S/p cerebral angiogram, TIA, headache EXAMS: CPT CODE: [id number] MRI BRAIN W/O CONTRAST 04033 HISTORY: S/p cerebral angiogram, TIA, headache TECHNIQUE: Sagittal T1, axial FLAIR, axial T2, axial gradient T2, axial T1, coronal T2, and DWI/ADC sequences ofthe brain were acquired. COMPARISON: Head CT 02/08/20 FINDINGS: 1 cm focus of restricted diffusion involving the genu of the anterior corpus callosum, to the right of midline. Subcentimeter foci of restricted diffusion within the bilateral cerebellar hemispheres, greater on the left. Chronic posterior left cerebellar lacunar infarct. Scattered T2 hyperintense foci within the bilateral cerebral white matter, suspect chronic microvascular ischemic changes. No intracranial hemorrhage. No intracranial mass or mass effect. No hydrocephalus. Pituitary gland and corpus callosum are normal in appearance. No extra-axial fluid collections. Normal vascular flow-voids are identified. Visualized orbital contents are unremarkable. Paranasal sinuses are clear. Calvarial and skull base marrow signal is preserved. IMPRESSION: Acute small vessel infarct involving the genu of the anterior corpus callosum, to the right of midline. Acute lacunar infarcts of the bilateral cerebellar hemispheres. No MRI evidence of acute hemorrhage. Discussed with Dr. Rivero at 0939 hours. FOR INTERNAL CODINGPURPOSES ONLY RESULT CODE: CVR LOCATION: LP PAGE 1 Signed Report (CONTINUED) FAX: Sadaf Barron [phone] [place]: St: [facility] FAX: Julio Avila Name: KRISTEN CAUSEY [facility] : 1960 Age/S: 59/F [address] [facility] Unit #: [id number] Loc: V2065 [place] [address] Phys: Sadaf Rivero MD Acct: [id number] Dis Date: Status: ADM IN PHONE #: [phone] Exam Date: 0 02/10/2020 09 FAX #: [phone] Reason: S/p cerebral angiogram, TIA, headache EXAMS: CPT CODE: [id number] MRI BRAIN W/O CONTRAST 97779 (Continued) at 0946 Reported and signed by: Maria Teresa Horton D.O. CC: Sadaf Rivero MD; Julio Charles MD Technologist: LANA THAKKARRT - MRI [facility] Date/Time/By: 02/11/2020 (0946) : By: [email or web address] Orig Print D/T: S: 02/11/2020 (09) PAGE 2 Signed ReportBASIC METABOLIC [id number] 07:26:00 Test Item Value Reference Range Interpretation Comments SODIUM (test code = 143 mmol/L 136-145 N NA) POTASSIUM (test code 2.8 mmol/L 3.5-5.1 LL Results called to = K) [id number] by RUSSELL DICKENS 02/11/20 0719Critical re sults verified and re ad back by Nurse? Y CHLORIDE (test code = 108.0 mmol/L 98-107 H CL) CARBON DIOXIDE (test 30.0 mmol/L 21-32 N code = CO2) ANION GAP (test code 7.8 10-20 L = GAP) GLUCOSE (test code = 97 mg/dL 74-106 N GLU) BLOOD UREA NITROGEN 8 mg/dL 7-18 RESULT V ERIFIED BY (test code = BUN) REPEAT KAYLA LYSIS GLOMERULAR FILTRATION > 60 mL/min >=60 Estima laureano GFR by RATE (test code = using Stephanie fied MDRD GFR) formula.Chronic kidney disease is defined as eith er kidney damageor GFR <60 mL/min/1.73 m2 for >3 months. CREATININE (test code 0.50 mg/dL 0.55-1.02 L Note change in = CREAT) reference range due to change in reagent. BUN/CREATININE RATIO 16.0 10-20 N (test code = BUN/CREA) CALCIUM (test code = 8.9 mg/dL 8.5-10.1 N CA) [id number] 06:27:00 Test Item Value Reference Range Interpretation Comments PHOSPHORUS (test code = PHOS) 3.7 mg/dL 2.5-4.9 N [id number] 06:27:00 Test Item Value Reference Range Interpretation Comments MAGNESIUM (test code = MAG) 1.8 mg/dL 1.8-2.4 N CBC W/AUTO [id number] 05:41:00 Test Item Value Reference Range Interpretation Comments WHITE BLOOD CELL (test code = 7.4 K/mm3 4.5-12.5 N WBC) RED BLOOD CELL (test code = 3.70 mill/mm3 3.7-5.2 N RBC) HEMOGLOBIN (test code = HGB) 9.2 gram/dL 11.5-15.5 L HEMATOCRIT (test code = HCT) 29.4 % 36.0-46.0 L MEAN CELL VOLUME (test code = 79.5 fL 80-98 L MCV) MEAN CELL HGB (test code = MCH) 24.9 picogram 27.0-33.0 L MEAN CELL HGB CONCETRATION 31.3 gram/dL 33.0-36.0 L (test code = MCHC) RED CELL DISTRIBUTION WIDTH 14.1 % 11.6-16.2 N (test code = RDW) RED CELL DISTRIBUTION WIDTH SD 40.7 fL 37.0-51.0 N (test code = RDW-SD) PLATELET COUNT (test code = 277 K/mm3 150-450 N PLT) MEAN PLATELET VOLUME (test code 10.4 fL 6.7-11.0 N = MPV) NEUTROPHIL % (test code = NT%) 62.6 % 39.0-69.0 N IMMATURE GRANULOCYTE % (test 0.3 % 0.0-5.0 N code = IG%) LYMPHOCYTE % (test code = LY%) 26.8 % 25.0-55.0 N MONOCYTE % (test code = MO%) 6.7 % 0.0-10.0 N EOSINOPHIL % (test code = EO%) 3.3 % 0.0-5.0 N BASOPHIL % (test code = BA%) 0.3 % 0.0-1.0 N NUCLEATED RBC % (test code = 0.0 % 0-0 N NRBC%) NEUTROPHIL # (test code = NT#) 4.62 K/mm3 1.8-7.7 N IMMATURE GRANULOCYTE # (test 0.02 x10 3/uL 0-0.03 N code = IG#) LYMPHOCYTE # (test code = LY#) 1.97 K/mm3 1.0-5.0 N MONOCYTE # (test code = MO#) 0.49 K/mm3 0-0.8 N EOSINOPHIL # (test code = EO#) 0.24 K/mm3 0.0-0.5 N BASOPHIL # (test code = BA#) 0.02 K/mm3 0.0-0.2 N NUCLEATED RBC # (test code = 0.00 K/mm3 0.0-0.1 N NRBC#) MANUAL DIFF REQUIRED (test code NO = MDIFF) - CTA [id number] 16:22:00 Name: KRISTEN CAUSEY [facility] : 1960 Age/S: 59 / F [address] Unit #: [id number] Loc: [place] [address] Phys: Sadaf Rivero MD Acct: [id number] Dis Date: Status: ADM IN PHONE #: [phone] Exam Date: 02/10/2020 1408 FAX #: [phone] Reason: Cerebral aneurysm EXAMS: CPT CODE: [id number] CTA HEAD 87481 HISTORY: Cerebral aneurysm. COMPARISON: CTA head from February 19, 2018 and MRI brain from February 20, 2018. Head CT from February 08, 2020. Location: [facility]. CTA pilot station of [place]: 3-D images not available. The intracranial vertebral arteries are both patent. Left AICA is visible. PICA are patent bilaterally. Both PHYSICIAN PRESIDENT are patent with origin on the left. Basilar artery is patent with saccular aneurysm at the tip projected posteriorly and towards the right measuring 4 mm. This appears essentially unchanged from previous exam. Posterior communicating arteries are absent. Anterior communicating artery is patent. Bilateral petrous, cavernous and the supraclinoid ICA are patent with atherosclerotic calcifications. Both MCA are patent. Atherosclerotic change andbeaded appearance of the left M2 segment. Saccular aneurysm as well at the left M1/M2 junction projecting medially and anteriorly measuring 3.6 mm. Both YAJAIRA are patent. Contrast bolus is suboptimal on this exam. Dural sinuses are well-opacified IMPRESSION: Stable basilar artery tip aneurysm projectingtowards the right and posteriorly measuring 4 mm and M1/M2 junction left MCA aneurysm measuring 3.6 mm projecting anteriorly and towards the right. at 1622 Reported and signed by: Tato Rangel M.D. CC: Sadaf Rivero MD; Julio Charles MD Technologist:Cale Potter RT(R),(MR),(CT); CTDI: DLP: Trnscb Date/Time: 02/10/2020 (1622)t.SDR.TH4 Orig Print D/T: S: 02/10/2020 (3023) PAGE 1 Signed ReportBASIC METABOLIC PANEL 2020-02-10 07:54:00 Test Item Value Reference Range Interpretation Comments SODIUM (test code = 144 mmol/L 136-145 N NA) POTASSIUM (test code 3.2 mmol/L 3.5-5.1 L = K) CHLORIDE (test code = 110.0 mmol/L 98-107 H CL) CARBON DIOXIDE (test 32.0 mmol/L 21-32 N code = CO2) ANION GAP (test code 5.2 10-20 L = GAP) GLUCOSE (test code = 94 mg/dL 74-106 N GLU) BLOOD UREA NITROGEN 20 mg/dL 7-18 H (test code = BUN) GLOMERULAR FILTRATION > 60 mL/min >=60 Estima laureano GFR by RATE (test code = using Stephanie fied MDRD GFR) formula.Chronic kidney disease is defined as [facility] er kidney damageor GFR <60 mL/min/1.73 m2 for >3 months. CREATININE (test code 0.50 mg/dL 0.55-1.02 L Note change in = CREAT) reference range due to change in reagent. BUN/CREATININE RATIO 42.8 10-20 H (test code = BUN/CREA) CALCIUM (test code = 9.0 mg/dL 8.5-10.1 N CA) [id number] 07:54:00 Test Item Value Reference Range Interpretation Comments PHOSPHORUS (test code = PHOS) 3.3 mg/dL 2.5-4.9 N [id number] 07:54:00 Test Item Value Reference Range Interpretation Comments MAGNESIUM (test code = MAG) 2.2 mg/dL 1.8-2.4 N BASIC METABOLIC [id number] 07:48:00 Test Item Value Reference Range Interpretation Comments SODIUM (test code = NA) 144 mmol/L 136-145 N POTASSIUM (test code = K) 3.2 mmol/L 3.5-5.1 L CHLORIDE (test code = CL) 110.0 mmol/L 98-107 H CARBON DIOXIDE (test code = CO2) mmol/L 21-32 ANION GAP (test code = GAP) 10-20 GLUCOSE (test code = GLU) mg/dL 74-106 BLOOD UREA NITROGEN (test code = mg/dL 7-18 BUN) GLOMERULAR FILTRATION RATE (test mL/min >=60 code = GFR) CREATININE (test code = CREAT) mg/dL 0.55-1.02 BUN/CREATININE RATIO (test code 10-20 = BUN/CREA) CALCIUM (test code = CA) mg/dL 8.5-10.1 [id number] 07:48:00 Test Item Value Reference Range Interpretation Comments PHOSPHORUS (test code = PHOS) mg/dL 2.5-4.9 [id number] 07:48:00 Test Item Value Reference Range Interpretation Comments MAGNESIUM (test code = MAG) mg/dL 1.8-2.4 CBC W/AUTO [id number] 07:27:00 Test Item Value Reference Range Interpretation Comments WHITE BLOOD CELL (test code = 6.0 K/mm3 4.5-12.5 N WBC) RED BLOOD CELL (test code = 3.81 mill/mm3 3.7-5.2 N RBC) HEMOGLOBIN (test code = HGB) 9.3 gram/dL 11.5-15.5 L HEMATOCRIT (test code = HCT) 30.8 % 36.0-46.0 L MEAN CELL VOLUME (test code = 80.8 fL 80-98 N MCV) MEAN CELL HGB (test code = MCH) 24.4 picogram 27.0-33.0 L MEAN CELL HGB CONCETRATION 30.2 gram/dL 33.0-36.0 L (test code = MCHC) RED CELL DISTRIBUTION WIDTH 14.3 % 11.6-16.2 N (test code = RDW) RED CELL DISTRIBUTION WIDTH SD 42.3 fL 37.0-51.0 N (test code = RDW-SD) PLATELET COUNT (test code = 271 K/mm3 150-450 N PLT) MEAN PLATELET VOLUME (test code 10.1 fL 6.7-11.0 N = MPV) NEUTROPHIL % (test code = NT%) 65.9 % 39.0-69.0 N IMMATURE GRANULOCYTE % (test 0.3 % 0.0-5.0 N code = IG%) LYMPHOCYTE % (test code = LY%) 23.6 % 25.0-55.0 L MONOCYTE % (test code = MO%) 6.6 % 0.0-10.0 N EOSINOPHIL % (test code = EO%) 3.3 % 0.0-5.0 N BASOPHIL % (test code = BA%) 0.3 % 0.0-1.0 N NUCLEATED RBC % (test code = 0.0 % 0-0 N NRBC%) NEUTROPHIL # (test code = NT#) 3.96 K/mm3 1.8-7.7 N IMMATURE GRANULOCYTE # (test 0.02 x10 3/uL 0-0.03 N code = IG#) LYMPHOCYTE # (test code = LY#) 1.42 K/mm3 1.0-5.0 N MONOCYTE # (test code = MO#) 0.40 K/mm3 0-0.8 N EOSINOPHIL # (test code = EO#) 0.20 K/mm3 0.0-0.5 N BASOPHIL # (test code = BA#) 0.02 K/mm3 0.0-0.2 N NUCLEATED RBC # (test code = 0.00 K/mm3 0.0-0.1 N NRBC#) BASIC METABOLIC [id number] 08:03:00 Test Item Value Reference Range Interpretation Comments SODIUM (test code = 146 mmol/L 136-145 H NA) POTASSIUM (test code 2.7 mmol/L 3.5-5.1 LL Results called to = K) BACILIO [id number] V.LAB.OA 0802Critical re sults verified and re ad back by Nurse? Y CHLORIDE (test code = 106.0 mmol/L 98-107 N CL) CARBON DIOXIDE (test 35.0 mmol/L 21-32 H code = CO2) ANION GAP (test code 7.7 10-20 L = GAP) GLUCOSE (test code = 100 mg/dL 74-106 N GLU) BLOOD UREA NITROGEN 17 mg/dL 7-18 N (test code = BUN) GLOMERULAR FILTRATION > 60 mL/min >=60 Estima laureano GFR by RATE (test code = using Stephanie fied MDRD GFR) formula.Chronic kidney disease is defined as eith er kidney damageor GFR <60 mL/min/1.73 m2 for >3 months. CREATININE (test code 0.50 mg/dL 0.55-1.02 L Note change in = CREAT) reference range due to change in reagent. BUN/CREATININE RATIO 32.4 10-20 H (test code = BUN/CREA) CALCIUM (test code = 8.6 mg/dL 8.5-10.1 N CA) LIPID PROFILE (CORONARY RISK)2020-02-09 08:03:00 Test Item Value Reference Range Interpretation Comments TRIGLYCERIDES (test 150 mg/dL 20-150 N code = TRIG) CHOLESTEROL (test code 187 mg/dL 0-200 N = CHOL) CHOLESTEROL/HDL RATIO 3.0 RATIO 0-4.9 N RISK A SSOCIATED WITH (test code = CHOLHDL) CHOL/H DL RATIOS: Risk Male Female1/2 AVERAGE 3.43 3.27AVERAG E 4.97 4.442X AVERAGE 9.55 7.053X AVERAGE 23.39 11.04 REFERENCE VALUE IS RELATED TO R ISK LEVELS ASRECOMM ENDED BY THE HEA RT, LUNG, AND BLOOD INST. HDL CHOLESTEROL (test 47 mg/dL 40-60 N code = HDL) LIPOPROTEIN LDL (test 128 mg/dL 100-129 N RN PER [place]URI, CONTACT code = LDL) PHYSICIAN IMMED IATELY IF THIS IS A ST [place], AMI OR CAROTID STENOSIS PATIEN T WHEN THE LDL >100 ([address] OCCURENCE, THIS ADMISSION)===== ======= ======= ======= ===Reference In terval: mg/dL mmol/L--------- ------- ------- ------O ptimal <100 <2.6Near/above optimal 100-129 2.6-3.3Borderli ne High 130-159 3.4-4.1 High 160-189 4.1-4.9 Very High >=190 >=4.9========= This LDL result is a direct measurement.=== ====== CBC W/AUTO [id number] 07:11:00 Test Item Value Reference Range Interpretation Comments WHITE BLOOD CELL (test code = 5.9 K/mm3 4.5-12.5 N WBC) RED BLOOD CELL (test code = 3.95 mill/mm3 3.7-5.2 N RBC) HEMOGLOBIN (test code = HGB) 9.7 gram/dL 11.5-15.5 L HEMATOCRIT (test code = HCT) 31.3 % 36.0-46.0 L MEAN CELL VOLUME (test code = 79.2 fL 80-98 L MCV) MEAN CELL HGB (test code = MCH) 24.6 picogram 27.0-33.0 L MEAN CELL HGB CONCETRATION 31.0 gram/dL 33.0-36.0 L (test code = MCHC) RED CELL DISTRIBUTION WIDTH 14.6 % 11.6-16.2 N (test code = RDW) RED CELL DISTRIBUTION WIDTH SD 42.0 fL 37.0-51.0 N (test code = RDW-SD) PLATELET COUNT (test code = 277 K/mm3 150-450 N PLT) MEAN PLATELET VOLUME (test code 10.1 fL 6.7-11.0 N = MPV) NEUTROPHIL % (test code = NT%) 62.8 % 39.0-69.0 N IMMATURE GRANULOCYTE % (test 0.3 % 0.0-5.0 N code = IG%) LYMPHOCYTE % (test code = LY%) 27.6 % 25.0-55.0 N MONOCYTE % (test code = MO%) 7.3 % 0.0-10.0 N EOSINOPHIL % (test code = EO%) 1.7 % 0.0-5.0 N BASOPHIL % (test code = BA%) 0.3 % 0.0-1.0 N NUCLEATED RBC % (test code = 0.0 % 0-0 N NRBC%) NEUTROPHIL # (test code = NT#) 3.68 K/mm3 1.8-7.7 N IMMATURE GRANULOCYTE # (test 0.02 x10 3/uL 0-0.03 N code = IG#) LYMPHOCYTE # (test code = LY#) 1.62 K/mm3 1.0-5.0 N MONOCYTE # (test code = MO#) 0.43 K/mm3 0-0.8 N EOSINOPHIL # (test code = EO#) 0.10 K/mm3 0.0-0.5 N BASOPHIL # (test code = BA#) 0.02 K/mm3 0.0-0.2 N NUCLEATED RBC # (test code = 0.00 K/mm3 0.0-0.1 N NRBC#) MANUAL DIFF REQUIRED (test code NO = MDIFF) URINALYSIS [id number] 00:49:00 Test Item Value Reference Range Interpretation Comments UA COLOR (test code = YELLOW YELLOW COLU) UA APPEARANCE (test code Cloudy CLEAR A = APPU) UA GLUCOSE DIPSTICK (test NEGATIVE mg/dL NEGATIVE code = DGLUU) UA BILIRUBIN DIPSTICK NEGATIVE mg/dL NEGATIVE (test code = BILU) UA KETONE DIPSTICK (test NEGATIVE mg/dL NEGATIVE code = KETU) UA SPECIFIC GRAVITY (test 1.023 1.001-1.035 code = SGU) UA BLOOD DIPSTICK (test 0.03 mg/dL (Trace) NEGATIVE A code = BARBARA) mg/dL UA PH DIPSTICK (test code 6.0 5.0-8.0 = ZOE) UA PROTEIN DIPSTICK (test 30 (1+) mg/dL NEGATIVE A code = PROU) UA UROBILINIOGEN DIPSTICK 4.0 (2+) mg/dL NEGATIVE A (test code = URO) UA NITRITE DIPSTICK (test NEGATIVE NEGATIVE code = RAISA) UA LEUKOCYTE ESTERASE W 2+ [place]/uL NEGATIVE A REFLEX (test code = LEUUR) UA WBC (test code = WBCU) 11-20 per HPF 0-5 A UA RBC (test code = RBCU) 0-3 #/HPF 0-5 UA EPITHELIAL CELLS (test FEW per HPF FEW code = EPIU) UA BACTERIA (test code = MODERATE #/HPF NONE A BACU) UA HYALINE CAST (test 3-5 #/LPF 0-5 code = HYALU) UA MUCUS (test code = MANY #/LPF FEW A MUCU) Urine Source? Clean CatchDRUGS OF ABUSE SCREEN [id number] 00:49:00 Test Item Value Reference Range Interpretation Comments URN COCAINE (test code = COCAURN) NEGATIVE <300 ng/mL URN CANNABINOIDS (test code = NEGATIVE <50 ng/mL CANNABURN) URN AMPHETAMINE (test code = NEGATIVE <1000 ng/mL AMPHETURN) URN BARBITURATE (test code = NEGATIVE <200 ng/mL BARBITURN) URN BENZODIAZEPINE (test code = NEGATIVE <200 ng/mL BENZOURN) URN OPIATES (test code = OPIATURN) NEGATIVE <300 ng/mL URN PHENCYCLIDINE (PCP) (test code = NEGATIVE <25 ng/mL PHENCURN) URN METHADONE (test code = METHAURN) NEGATIVE <300 ng/mL Urine Source? Clean CatchURINALYSIS [id number] 00:14:00 Test Item Value Reference Range Interpretation Comments UA COLOR (test code = YELLOW YELLOW COLU) UA APPEARANCE (test code Cloudy CLEAR A = APPU) UA GLUCOSE DIPSTICK (test NEGATIVE mg/dL NEGATIVE code = DGLUU) UA BILIRUBIN DIPSTICK NEGATIVE mg/dL NEGATIVE (test code = BILU) UA KETONE DIPSTICK (test NEGATIVE mg/dL NEGATIVE code = KETU) UA SPECIFIC GRAVITY (test 1.023 1.001-1.035 code = SGU) UA BLOOD DIPSTICK (test 0.03 mg/dL (Trace) NEGATIVE A code = BARBARA) mg/dL UA PH DIPSTICK (test code 6.0 5.0-8.0 = ZOE) UA PROTEIN DIPSTICK (test 30 (1+) mg/dL NEGATIVE A code = PROU) UA UROBILINIOGEN DIPSTICK 4.0 (2+) mg/dL NEGATIVE A (test code = URO) UA NITRITE DIPSTICK (test NEGATIVE NEGATIVE code = RAISA) UA LEUKOCYTE ESTERASE W 2+ Toshia/uL NEGATIVE A REFLEX (test code = LEUUR) UA WBC (test code = WBCU) 11-20 per HPF 0-5 A UA RBC (test code = RBCU) 0-3 #/HPF 0-5 UA EPITHELIAL CELLS (test FEW per HPF FEW code = EPIU) UA BACTERIA (test code = MODERATE #/HPF NONE A BACU) UA HYALINE CAST (test 3-5 #/LPF 0-5 code = HYALU) UA MUCUS (test code = MANY #/LPF FEW A MUCU) Urine Source? Clean CatchDRUGS OF ABUSE SCREEN [id number] 00:14:00 Test Item Value Reference Range Interpretation Comments URN COCAINE (test code = COCAURN) <300 ng/mL URN CANNABINOIDS (test code = <50 ng/mL CANNABURN) URN AMPHETAMINE (test code = AMPHETURN) <1000 ng/mL URN BARBITURATE (test code = BARBITURN) <200 ng/mL URN BENZODIAZEPINE (test code = <200 ng/mL BENZOURN) URN OPIATES (test code = OPIATURN) <300 ng/mL URN PHENCYCLIDINE (PCP) (test code = <25 ng/mL PHENCURN) URN METHADONE (test code = METHAURN) <300 ng/mL Urine Source? Clean [id number] 19:40:00 Test Item Value Reference Range Interpretation Comments MAGNESIUM (test code = MAG) 1.8 mg/dL 1.8-2.4 N BASIC METABOLIC [id number] 17:20:00 Test Item Value Reference Range Interpretation Comments SODIUM (test code = 142 mmol/L 136-145 N NA) POTASSIUM (test code 2.7 mmol/L 3.5-5.1 LL Results called to by = K) V.JOLIE.QUR 02/07 1648Critical re sults verified and re ad back by Nurse? Results called to [id number] by RUSSELL ValdezQUR 02/08/20 1719Critical re sults verified and re ad back by Nurse? Y CHLORIDE (test code = 102.9 mmol/L 98-107 N CL) CARBON DIOXIDE (test 32.0 mmol/L 21-32 N code = CO2) ANION GAP (test code 9.8 10-20 L = GAP) GLUCOSE (test code = 103 mg/dL 74-106 N GLU) BLOOD UREA NITROGEN 15 mg/dL 7-18 N (test code = BUN) GLOMERULAR FILTRATION > 60 mL/min >=60 Estima laureano GFR by RATE (test code = using Stephanie fied MDRD GFR) formula.Chronic kidney disease is defined as ei er kidney damageor GFR <60 mL/min/1.73 m2 for >3 months. CREATININE (test code 0.83 mg/dL 0.55-1.02 N Note change in = CREAT) reference range due to change in reagent. BUN/CREATININE RATIO 18.1 10-20 N (test code = BUN/CREA) CALCIUM (test code = 9.1 mg/dL 8.5-10.1 N CA) HEPATIC FUNCTION [id number] 17:20:00 Test Item Value Reference Range Interpretation Comments TOTAL PROTEIN (test 6.5 gram/dL 6.4-8.2 N code = PROT) ALBUMIN (test code = 3.6 g/dL 3.4-5.0 N ALB) GLOBULIN (test code = 2.9 gram/dL 2.7-4.2 N GLOB) ALBUMIN/GLOBULIN RATIO 1.2 0.75-1.50 N (test code = A/G) BILIRUBIN TOTAL (test 0.50 mg/dL 0.0-1.0 N code = BILT) BILIRUBIN DIRECT (test 0.15 mg/dL 0.0-0.20 N code = BILD) SGOT/AST (test code = 9 IUnit/L 15-37 L AST) SGPT/ALT (test code = 13 IUnit/L 12-78 N ALT) ALKALINE PHOSPHATASE 95 IUnit/L 45-117 N Note change in TOTAL (test code = reference range due ALKP) to change in reagent. CREATINE KINASE (CK)2020-02-08 17:20:00 Test Item Value Reference Range Interpretation Comments CREATINE KINASE (CK) (test code = 63 IUnit/L 26-208 N CK) THYROID STIMULATING [id number] 17:20:00 Test Item Value Reference Range Interpretation Comments THYROID STIMULATING 1.260 uIU/mL 0.36-3.74 N TSH REFE RENCE HORMONE (test code = RANGES: EUTHYROID: TSH) 0.35 - 4.3 mIU/ mL HYPO : > 5.5 mI U/mL HYPER : < 0.35 mIU/mL [id number] 17:20:00 Test Item Value Reference Range Interpretation Comments TROPONIN-I (test code = TROPI) <0.015 ng/mL 0-0.045 N [id number] 17:20:00 Test Item Value Reference Range Interpretation Comments ACETAMINOPHEN (test < 10 mcg/mL 10-30 L A RANGE OF 10-30 code = ACET) mcg/mL IS A THERAPEUTIC RAN GE. TOXIC CONCENTRATIONS: >150 mcg/mL AT 4 SAMREEN RS AFTER INGESTION >= 50 mcg/mL AT 12 HOURS AFTER INGESTION [id number] 17:20:00 Test Item Value Reference Range Interpretation Comments SALICYLATE (test code = ANJUM) < 1.7 mg/dL 2.8-20.0 L [id number] 17:20:00 Test Item Value Reference Range Interpretation Comments ALCOHOL (test code = 4 mg/dL 0.0-3.0 H ------- INTERPRET ALC) BLANCA DATA NOTE: POSITIVE SCREEN ING RESULTS SHOULD BE CONSI DERED PRESUMPTIVE.WHE N COLLECTED FOR MEDICAL PUR POSES ONLY. SPECIMEN WILL N OTBE COLLECTED BY [facility] CUSTODY.IF A CO NFIRMATION OF POSITIVE RES ULTS IS DESIRED, ACONFI RMATION TEST MUST BE RE QUESTED BY THE PHYSICIAN A T ANADDITIONAL CH ARGE TO THE PATIENT. BASIC METABOLIC [id number] 16:51:00 Test Item Value Reference Range Interpretation Comments SODIUM (test code = NA) mmol/L 136-145 N POTASSIUM (test code = mmol/L 3.5-5.1 Resul ts called to by K) V.LAB.QUR 02/07 1648Critical re sults verified and re ad back by Nurse? CHLORIDE (test code = mmol/L 98-107 N CL) CARBON DIOXIDE (test mmol/L 21-32 N code = CO2) ANION GAP (test code = 10-20 L GAP) GLUCOSE (test code = mg/dL 74-106 N GLU) BLOOD UREA NITROGEN mg/dL 7-18 N (test code = BUN) GLOMERULAR FILTRATION mL/min >=60 Estima laureano GFR by RATE (test code = GFR) using Modified MDRD formula.Chronic kidney disease is defined as eith er kidney damageor GFR <60 mL/min/1.73 m2 for >3 months. CREATININE (test code = mg/dL 0.55-1.02 N No te change in CREAT) reference range due to change in reagent. BUN/CREATININE RATIO 10-20 N (test code = BUN/CREA) CALCIUM (test code = 9.1 mg/dL 8.5-10.1 N CA) HEPATIC FUNCTION [id number] 16:51:00 Test Item Value Reference Range Interpretation Comments TOTAL PROTEIN (test code = PROT) gram/dL 6.4-8.2 ALBUMIN (test code = ALB) g/dL 3.4-5.0 GLOBULIN (test code = GLOB) gram/dL 2.7-4.2 ALBUMIN/GLOBULIN RATIO (test code = 0.75-1.50 A/G) BILIRUBIN TOTAL (test code = BILT) mg/dL 0.0-1.0 N BILIRUBIN DIRECT (test code = BILD) mg/dL 0.0-0.20 N SGOT/AST (test code = AST) IUnit/L 15-37 SGPT/ALT (test code = ALT) IUnit/L 12-78 ALKALINE PHOSPHATASE TOTAL (test IUnit/L 45-117 code = ALKP) CREATINE KINASE (CK)2020-02-08 16:51:00 Test Item Value Reference Range Interpretation Comments CREATINE KINASE (CK) (test code = IUnit/L 26-208 N CK) THYROID STIMULATING [id number] 16:51:00 Test Item Value Reference Range Interpretation Comments THYROID STIMULATING uIU/mL 0.36-3.74 N TSH REFE RENCE RANGES: HORMONE (test code = EUTHYRO ID: 0.35 - 4.3 TSH) mIU/mL HYPO : > 5.5 mIU/mL HYPER : < 0.35 mIU/mL [id number] 16:51:00 Test Item Value Reference Range Interpretation Comments TROPONIN-I (test code = TROPI) ng/mL 0-0.045 N [id number] 16:51:00 Test Item Value Reference Range Interpretation Comments ACETAMINOPHEN (test code mcg/mL 10-30 L A R HOLLAND OF 10-30 = ACET) mcg/mL IS A THERAPEUTIC RAN GE. TOXIC CONCENTRA TIONS: >150 mcg/mL AT 4 HOURS AFTER INGESTION >= 50 mcg/mL AT 12 HO URS AFTER INGESTION [id number] 16:51:00 Test Item Value Reference Range Interpretation Comments SALICYLATE (test code = ANJUM) mg/dL 2.8-20.0 L [id number] 16:51:00 Test Item Value Reference Range Interpretation Comments ALCOHOL (test code = mg/dL 0.0-3.0 H ------- INTERPRET ALC) BLANCA DATA NOTE: POSITIVE SCREEN ING RESULTS SHOULD BE CONSI DERED PRESUMPTIVE.WHE N COLLECTED FOR MEDICAL PUR POSES ONLY. SPECIMEN WILL N OTBE COLLECTED BY URI OF CUSTODY.IF A CO NFIRMATION OF POSITIVE RES ULTS IS DESIRED, ACONFI RMATION TEST MUST BE RE QUESTED BY THE PHYSICIAN Alvaro GARY CH ARGE TO THE PATIENT. - XR CHEST 1 [id number] 16:32:00 FAX: Shannon Oquendo MD [phone] [place]: B St: REG Name: KRISTEN CAUSEY [facility] : 1960 Age/S: 59/F [address] Unit #: [id number] Loc: [place] [address] Phys: Shannon Oquendo MD Acct: [id number] Dis Date: Status: REG ER PHONE #: [phone] Exam Date: 02/08/2020 1629 FAX #: [phone] Reason: Altered Mental Status EXAMS: CPT CODE: [id number] XR CHEST 1 V 23024 HISTORY: Confusion. COMPARISON: January 18, 2018. Location: TH. No acute infiltrates, effusion or congestion is noted. Suboptimal inspiration. Dependent changes. Elevated right hemidiaphragm. Cardiomegaly. Cervical fusion in the lower neck. IMPRESSION: No acute infiltrates, effusion or congestion. at 1632 Reported and signed by: Tato Rangel M.D. CC: Shannon Oquendo MD Technologist: Jo-Ann Jung(Antoinette) Trnscrd Date/Time/By: 02/08/2020 (9112) : By: Norma.TH4 Orig Print D/T: S: 02/08/2020 (1155) PAGE 1 Signed [id number] 16:25:00 Test Item Value Reference Range Interpretation Comments AMMONIA (test code = AMM) 28 umol/L 11-32 N - CT HEAD/BRAIN W/O [id number] 16:18:00 Name: KRISTEN CAUSEY [facility] : 1960 Age/S: 59 / F [address] Unit #: [id number] Loc: [place] [address] Phys: Shannon Oquendo MD Acct: [id number] Dis Date: Status: REG ER PHONE #: [phone] Exam Date: 02/08/2020 1610 FAX #: [phone] Reason: Altered Mental StatusEXAMS: CPT CODE: [id number] CT HEAD/BRAIN W/O CONT 34593 HISTORY: Headache and confusion. COMPARISON: Head CT from February 19, 2018. Location: TH. CT brain without contrast: Automated exposure control. No acute intracranial bleeds or extra-axial collections are noted. No acute territorial vascular infarction is noted. 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 The sulci, gyri, ventricles and subarachnoid spaces and the basilar cisterns are normal for patient's age. No herniation or hydrocephalus or midline shift is noted. Mild periventricular ischemic gliosis is noted. Age-appropriate atrophy is noted as well. Portions of the visualized paranasal sinuses are normal. No obvious bony calvarial defect is noted. IMPRESSION: No acute intracranial bleeds or extra-axial collections. No acute territorial vascular infarction. No herniation or hydrocephalus or midline shift. Chronic white matter ischemic disease and atrophy . at 1618 Reported and signed by: Tato Rangel M.D. CC: Shannon Oquendo MD Technologist:Ace Duarte RT(R)(CT) CTDI: DLP: Trnscb Date/Time: 02/08/2020 (1618) t.SDR.TH4 Orig Print D/T: S: 02/08/2020 (3577) PAGE 1 Signed ReportPROTHROMBIN [id number] 16:09:00 Test Item Value Reference Range Interpretation Comments PROTHROMBIN TIME 12.7 seconds 9.0-14.0 N PATIENT (test code = PTP) INTERNATIONAL NORMAL 1.1 0.8-1.2 N The the rapeutic range RATIO (test code = for oral INR) anticoagulant t herapy formost indicat ions is an internati onal normalized rati o (INR)of between 2.0 and 3.0. The recommended therapeutic INR range for various cli nical situations is l isted below: Clinical Situat ion INR range Pulmonary embol ism treatment (2.0-3.0)Venous thrombosis treatmentVenous thrombosis prophylaxis (hi gh risk surgery)Prevent ion of systemic emboli sm from: Acute myocardial infa rction Valvular heart disease Atrial fibrillation Mechanical pros thetic heart valves (2.5-3.5) IS PATIENT ON ANTICOAGULANTS? NTHROMBOPLASTIN TIME [id number] 16:09:00 Test Item Value Reference Range Interpretation Comments THROMBOPLASTIN TIME PARTIAL 30.0 seconds 23.0-37.0 N (test code = PTT) IS PATIENT ON ANTICOAGULANTS? NCBC W/AUTO [id number] 16:00:00 Test Item Value Reference Range Interpretation Comments WHITE BLOOD CELL (test code = 9.3 K/mm3 4.5-12.5 N WBC) RED BLOOD CELL (test code = 4.09 mill/mm3 3.7-5.2 N RBC) HEMOGLOBIN (test code = HGB) 10.0 gram/dL 11.5-15.5 L HEMATOCRIT (test code = HCT) 32.1 % 36.0-46.0 L MEAN CELL VOLUME (test code = 78.5 fL 80-98 L MCV) MEAN CELL HGB (test code = MCH) 24.4 picogram 27.0-33.0 L MEAN CELL HGB CONCETRATION 31.2 gram/dL 33.0-36.0 L (test code = MCHC) RED CELL DISTRIBUTION WIDTH 14.5 % 11.6-16.2 N (test code = RDW) RED CELL DISTRIBUTION WIDTH SD 41.1 fL 37.0-51.0 N (test code = RDW-SD) PLATELET COUNT (test code = 311 K/mm3 150-450 N PLT) MEAN PLATELET VOLUME (test code 9.9 fL 6.7-11.0 N = MPV) NEUTROPHIL % (test code = NT%) 71.7 % 39.0-69.0 H IMMATURE GRANULOCYTE % (test 0.2 % 0.0-5.0 N code = IG%) LYMPHOCYTE % (test code = LY%) 19.7 % 25.0-55.0 L MONOCYTE % (test code = MO%) 6.9 % 0.0-10.0 N EOSINOPHIL % (test code = EO%) 1.4 % 0.0-5.0 N BASOPHIL % (test code = BA%) 0.1 % 0.0-1.0 N NUCLEATED RBC % (test code = 0.0 % 0-0 N NRBC%) NEUTROPHIL # (test code = NT#) 6.63 K/mm3 1.8-7.7 N IMMATURE GRANULOCYTE # (test 0.02 x10 3/uL 0-0.03 N code = IG#) LYMPHOCYTE # (test code = LY#) 1.82 K/mm3 1.0-5.0 N MONOCYTE # (test code = MO#) 0.64 K/mm3 0-0.8 N EOSINOPHIL # (test code = EO#) 0.13 K/mm3 0.0-0.5 N BASOPHIL # (test code = BA#) 0.01 K/mm3 0.0-0.2 N NUCLEATED RBC # (test code = 0.00 K/mm3 0.0-0.1 N NRBC#) CHEST 2 VIEWS [place] [address] PatientName: EDSON CAUSEY MR #: [id number] : 1960 Age/Sex: 56/F Req #:[id number] Adm Physician: Ordered by: CLAUS CAZARES MD Report #: [id number] Location: OR Room/Bed: ___ Procedure: [id number] DX/CHEST 2 VIEWS Exam Date: 03/13/17 Exam Time: 1402 REPORT STATUS: Signed PROCEDURE: CHEST 2 VIEWS TECHNIQUE: PA and lateral chest INDICATION: Preoperative evaluation for hysterectomyCOMPARISON: None. FINDINGS: The lungs are clear and symmetrically inflated. No pleural effusions. The upper limits normal heart size for technique with tortuous thoracic aorta. Intact skeleton. Cholecystectomy clips. Cervical fusion hardware. CONCLUSION: 1. No acute abnormality. 2. Borderline upper limits of normal heart size with a tortuous thoracic aorta suspicious for chronic hypertension. Dictated by: Jailyn Lawrence M.D. on 03/13/2017 at 14:29 Electronically approved by: Jailyn Sweet on 03/13/2017 at 14:29 Dictated By: JAILYN LAWRENCE MD 28 Transcribed By: MARK on 03/13/171428 COPY TO: CLAUS CAZARES MD Notes Date/Time Note Provider Source 2020-11-04 [id number] [facility] 12:56:00 [facility] PATIENT NAME: KRISTEN CAUSEY ADMIT DATE: 11/02/20ACCOUNT NO: [id number] ROOM NO: [facility] AGE: 60 REPORT TYPE: DISCHARGE SUMMAR Y REPORT SEX: F DATE OF : 56ADMITTING PHYSICIAN:Naya Cruz MD ATTENDING PHYSICIAN:Naya Cruz MD ADMISSION D ATE: 11/02/2020ISCHARGE DATE: 11/04/2020 DISPOSITION : Discharged the patient home. DISCHARGE DIAGNOSES :1. Acute metabolic encephalopathy secondary to urin german tract infection that hasimproved.2. Hypertension .3. Hyperlipidemia.4. Gastroesophageal reflux diseas e.5. History of atrial fibrillation, coronary artery disease.6. Anxiety disorder.7. Chronic hypokalem ia, on potassium replacement.8. Depression. HOSPITAL CO URSE: Ms. Kristen Causey is a 60-year-old female. She wasbrought into the Emergency Room on 11/01/2000 secondary to confusion and she wasfeeling like b ugs were crawling all over her body and she also fel t nauseous andshe threw up some bilious fluid. Upo n presentation, she was also havinggeneralized berto wilkins. Upon presentation, CT brain was done that was deena greenfield. She has chronic hypokalemia. Here, she has been hypokalemic and potassium wasreplaced; but the following day when I have seen her, she was awak e, alert, andoriented. She did have a UTI. She was initiated on Rocephin. Her mentalstatus has impr melani. Neurology has evaluated the patient as well. The patientclaimed that she was depressed as she los t her 43-year-old son due to COVIDrecently. Psych has been consulted and the psychiatry team has initiated her onRemeron as well. Currently, she is stable for discharge on all her medication. She has request ed refills for her medications as she has appointme nt to see hercardiologist next month. PHYSICAL EXAMINA TION: I have seen and evaluated the patient on the day ofdischarge:VITAL SIGNS: Temperature 98.1, heart rate is 57, respirations of 16, bloodpressure 140/82, SpO2 of 94% to 95% on room air.GENERAL: The patient i s awake, alert, and oriented. She is currently not inany acute distress.HEENT: Head is normocephalic.NECK : Supple.CARDIOVASCULAR SYSTEM: Rate and rhythm regular.LUNGS: Clear to auscultation bilaterally.GASTROINTESTINAL: Abdomen is soft an d nontender. Bowel sounds present.NEUROLOGIC: No f ocal deficits noted. PATIENT NAME: SOLEDAD CAUSEY CONDITION AT THE TIME OF DISCHARGE: Stable. MEDICATIONS: Per JUL. ACTIVIT Y: As tolerated. DIET: Heart healthy diet. FOLLOWUP: T he patient was advised to follow up with primary ca re physician,cardiology, and psychiatry as outpatie nt in 1 to 2 weeks. The time spent for discharge process is 35 minutes. Dictated By: Naya Cruz MD WT: DS:SHARONDA/ROBERT/NTSDD: 11/04/2020 12:56:14DT: 23:11:24Conf#: [id number]/DID#: [id number] Authenticat ed by Naya Cruz MD On 11/07/2020 10:41:27 PM at 2241 PATIENT NAME: BRADY CAUSEY szqfkbv2993-65-08W05:11:00V.[id number] ailable for patient [id number]:41:5 6 2020-11-04 [id number]:17:00 [facility] 09:17:00 [facility] ([facility])Discharge SummaryREPORT#:[id number] REPORT STATUS: SignedDATE:11/04/20 TIME: 916 PATIENT: KRISTEN CAUSEY UNIT #: [id number]#: [id number] [address] [birth year] AG E: 60 SEX: F ATTEND: Naya Cruz [facility] AUTHOR: Naya Cruz MD * AL L edits or amendments must be made on the electronic/com puter document * PCP PCPPCP:PCP: No Primary or Family Physician Discharge to: home General Information Date of admission:Observation Start Date: 11/01/20Date o f admission: 11/02/20 Discharge date: 11/04/20Hosp ital course:DC Summary dictated # [id number]: neurology, psychiatry Med Rec PCPPCP:PCP: No Amairani jesika or Family Physician Med RecDischarge meds:Continue taking these medications:POTASSIUM CHLORIDE ER (KLOR-CO N M20) 20 MEQ TAB.SR 20 MILLIEQUIVALENT ORAL TWICE BELKIS Y. FLUoxetine (PROzac) 20 MG CAP 20 MILLIGRAM ORAL DAILY. OMEPRAZOLE ER (PriLOSEC) 40 MG CAP.DR 40 MILLIGR AM ORAL DAILY. busPIRone (BUSPAR) 10 MG TAB 10 MILLIGRAM ORAL TWICE DAILY. RASAGILINE (AZILECT) 0.5 MG TAB 0.5 MILLIGRAM ORAL DAILY. SOLIFENACIN (VESICARE) 5 M G TAB 5 MILLIGRAM ORAL DAILY. DULoxetine DR (CYMBALTA) 3 0 MG CAP.DR 30 MILLIGRAM ORAL DAILY. ASPIRIN EC (ECOT RIN) 81 MG TAB.EC 81 MILLIGRAM ORAL DAILY. Qty = 30 CAMILO ROXABAN (XARELTO) 20 MG TAB 20 MILLIGRAM ORAL DAILY. Qty = 30 This prescription has been renewed ATORVASTATIN (LIPITOR) 40 MG TAB 40 MILLIGRAM ORAL BEDTIME. Q ty = 30 This prescription has been renewed ISOSORBIDE MONONITRATE SR (IMDUR) 30 MG TAB.SR.24H 60 JONAH GRAM ORAL DAILY. Qty = 30 This prescription has been renewed LISINOPRIL (ZESTRIL) 10 MG TAB 10 MILLIGRAM ORAL DAILY. Qty = 30 This prescription has been renewed METO PROLOL TARTRATE (LOPRESSOR) 25 MG TAB 25 MILLIGRAM ORAL EVERY 12 HOURS. Qty = 60 This prescription has been r enewed NITROGLYCERIN (NITROSTAT) 0.4 MG TAB.SL 0.4 MILL IGRAM SUBLINGUAL EVERY 5 MINUTES NEEDED. as needed for CHEST PAIN Qty = 30 This prescription has been r enewed Start taking the following new medications:NIFEd ipine XL (PROCARDIA XL) 30 MG TAB.SA 30 MILLIGRAM ORAL DAILY. Qty = 30 No Refills MIRTAZAPINE (REMERON) 15 MG TAB 15 MILLIGRAM ORAL BEDTIME. Qty = 14 No Refills CEPH ALEXIN (KEFLEX) 500 MG CAP 500 MILLIGRAM ORAL EVERY 12 HOURS. Qty = 14 No Refills ObjectiveVS/I OLast Document ed: Result Date Time Pulse Ox 94 11/04 1114 B/P 140/ 82 11/04 1114 B/P Mean 101.0 11/04 1114 O2 Delivery Room air 11/04 1114 Temp 98.1 11/04 1114 Pulse 57 1114 Resp 20 11/04 1114 24 hour I O ending at 0700: 11/04 0700 11/03 1900 Intake Total 2400.00 Output Tot al Balance 2400.00 Intake, IV 2200.00 Intake, Oral 200 Number Voids 3 PATIENT WEIGHT: Weight (lb): Jonathon ght (oz): Weight (kg): 72.727 Discharge Instructions PCPPCP:PCP: No Primary or Family Physician )( Bess cunningham to: Home/Self Care Discharge InstructionsAdditio nal Discharge Routines: PCP Follow-Up, Open End Spinning Operator Follow-UpDischarge management: greater than 30 m ins Quality: Gen Med Crit Care Current MedicationsCu rrent medication review:I attest that the foregoing medication list in the medical record is true, accurate, and complete to the best of my knowled ge. VTE ProphylaxisVTE prophylaxis initiated: yes Advanc ed Care Plan 65 or OlderDiscussed with: patientDiscussio n included: code status (full code) BMI Screening > 25 or < 18.5BMI status/follow-up: abnl BMI, pt to F/U w/PCP HTN Screening/Follow-upB/P assess/follow-up: pre-existing hx of HTN at 1256 R PT #:[id number] OF REPORTDSDischarge lkmixpk9627-55-83V08:17:00V.[id number] [facility] zisgSCTEBELMVZHMOB6598-17-10V06:57 :06 2020-11-03 [id number]:14:00 [facility] 10:14:00 [facility])Hospitalist Progress NoteREPORT#:[id number] REPORT STATUS: SignedDATE:11/03/20 TIME: 1014 PATIENT: KRISTEN CAUSEY UNIT #: [id number]#: [id number] [address] AGE : 60 SEX: F ATTEND: Naya Cruz [facility] AUTHOR: Naya Cruz MD * AL L edits or amendments must be made on the electronic/com puter document * SubjectiveChief Complaint:The patient is awake and alert , sitting on the chair. Patient stated that she has ch low potassium, She stated that s he lost her 43 year old son with COVID recently. remains on IV abx Objective GeneralVS/I O:Vital Signs: Date Ti me Temp Pulse Resp B/P B/P Pulse O2 O2 Flow FiO2 Mean Ox Delivery Rate 11/03 1103 97.9 59 18 123/74 90.6 92 Room air 11/03 0727 98.1 62 18 120/71 87.3 92 Nasal c annula 11/03 0356 97.9 69 18 139/82 100.9 92 Room air 0 11/02 2320 97.9 63 18 126/70 88.7 91 Room air 11/02 21 47 64 18 112/69 83.3 11/02 1943 98.4 65 18 112/66 81.1 90 Nasal cannula 11/02 1531 98.2 62 18 99/61 73.6 9 0 Nasal cannula 24 hour I O ending at 0700: 11/03 0700 0 11/02 1900 Intake Total 990.00 Output Total Balance 99 0.00 Intake, IV 750.00 Intake, Oral 240 Number Voids 2 5 PATIENT WEIGHT: Weight (lb): Weight (oz): Weight (kg): 72.727 Medications:Active Meds + DC'd Last 24 HrsPotassium Chloride 40 MEQ ONCE ONE PO (DC) Nifedipine 30 MG DAILY PO Atorvastatin Calcium 4 0 MG BEDTIME PO Lorazepam 0.5 MG Q6H PRN PRN PO Ronna zapine 15 MG BEDTIME PO Acetaminophen 650 MG Q6H PRN AK N PO Ceftriaxone Sodium 1,000 MG Q24H IV Sodium Chlor giovanni 10 MLOndansetron HCl 4 MG Q6H PRN PRN IV Sodium Chl oride 1,000 ML .Q10H IV Potassium Chloride/Water 100 M L Q2H IV (DC) Aspirin 81 MG DAILY PO Buspirone HCl 10 MG BID PO Duloxetine HCl 30 MG DAILY PO (DC) Fluoxetin e HCl 20 MG DAILY PO (DC) Isosorbide Mononitrate 60 MG DAILY PO Lisinopril 10 MG DAILY PO Metoprolol Tartrate 25 MG Q12HR PO Nifedipine 60 MG DAILY PO (DC) Pantopr azole Sodium 40 MG DAILY PO Potassium Chloride 20 MEQ BID PO Rivaroxaban 20 MG DAILY PO Tramadol HCl 50 MG Q6 H PRN PRN PO Nitroglycerin 0.4 MG Q5M PRN PRN SL Physi florence ExamGeneral appearance: alert, awake, orientedHead/Eyes: atraumatic, clear cornea, EOM I, normal conjunctiva/sclera, normal eyelids/perior b., normocephalic, PERRLENT: dry mucosal membrane, n ormal sinusNeck: full range of motion, non-tender, nor mal thyroid, supple/no meningismus, no bruit/NL chavarria tids, no JVD, no masses or swellingCardiovascular: nor mal capillary refill, normal heart sounds, regular r ate rhythm, no ectopy, no gallop, no heave, no murmu r, no rub, no thrillRespiratory: clear to auscultation , no distressAbdomen: non-tender, normal bowel sounds , soft, no distention, no guarding, no hernia, no mass/organomegaly, no reboundExtremities: moves all, normal capillary refill, normal range of motion, no edemaMusculoskeletal: normal inspection, painles s range of motionNeuro/SLOT FLOOR ATTENDANT: alert, oriented X 3, CNII-XI I intact, normal speech, reflexes equal bilat, no motor deficits, no sensory deficitsSkin: dry, intactPsychiatry: anxious, normal judgment/insig ht, not homicidal, not suicidal ResultsFindings/Data:Lab oratory Tests 11/03 11/02 0418 1731 Chemistry Sodium (1 36 - 145 mmol/L) 148 H 141 Potassium (3.5 - 5.1 mmol/ L) 3.0 L 3.2 L Chloride (98 - 107 mmol/L) 110.0 H 105.0 Carbon Dioxide (21 - 32 mmol/L) 32.0 32.0 Anion Gap (10 - 20) 9.0 L 7.2 L BUN (7 - 18 mg/dL) 12 17 Creatinine (0.55 - 1.02 mg/dL) 0.60 0.60 Glomerular Filtr Rate (>= 60 mL/min) > 60 > 60 BUN/Creatinine Ratio (10 - 20) 20.3 H 27.4 H Glucose (74 - 106 mg/dL) 95 114 H Calcium (8.5 - 10.1 mg/dL) 8.3 L 8.8 Magnesium (1.8 - 2.4 mg/dL ) 1.8 Laboratory Tests 11/03 0418 Hematology WBC (4.5 - 12.5 K/mm3) 6.1 RBC (3.7 - 5.2 mill/mm3) 3.96 Hgb (11 .5 - 15.5 gram/dL) 9.5 L Hct (36.0 - 46.0 %) 32.0 L MCV (80 - 98 fL) 80.8 MCH (27.0 - 33.0 picogram) 24.0 L MCHC (33.0 - 36.0 gram/dL) 29.7 L RDW (11.6 - 16.2 %) 15.6 RDW Std Deviation (37.0 - 51.0 fL) 45.5 Plt Coun t (150 - 450 K/mm3) 253 MPV (6.7 - 11.0 fL) 10.2 Neut % (Auto) (39.0 - 69.0 %) 52.6 Lymph % (Auto) (25.0 - 55.0 %) 35.9 [place] % (Auto) (0.0 - 10.0 %) 6.8 Eos % (Aut o) (0.0 - 5.0 %) 4.1 Baso % (Auto) (0.0 - 1.0 %) 0.3 Ne ut # (Auto) (1.8 - 7.7 K/mm3) 3.18 Lymph # (Auto) (1. 0 - 5.0 K/mm3) 2.17 [place] # (Auto) (0 - 0.8 K/mm3) 0.41 E os # (Auto) (0.0 - 0.5 K/mm3) 0.25 Baso # (Auto) (0.0 - 0.2 K/mm3) 0.02 Add Manual Diff NO, ONLY SCAN NEEDED Nucleated RBC % (0 - 0 %) 0.0 Nucleated RBCs # (Man) (0.0 - 0.1 K/mm3) 0.00 Platelet Estimate ADEQUAT E Plt Morphology Comment NORMAL Poikilocytosis 1+ Diag nosis, Assessment PlanProblem List/A P: 1. Altered ment al status 2. Hypokalemia 3. UTI (urinary tract infe ction) 4. Hypertension 5. Paroxysmal A-fib Consultants: neurology, psychiatry Free Text DxA P NotesFree text DxA P notes:1) change in mental status-patient h ad generalized weakness with confusion. Shehad no f ocal weakness no seizure activity. CT brain negative, UA positive for UTI, started on rocephin and monito r 2) hypertension-blood pressure was low has come up she normally takes mg daily and metopro lol 12-1/2 mg twice daily , and lisinopril 10 mg marni ly, all of which will be ordered but held if systolic bl ood pressures less than 1303) hyperlipidemia-on stat in4) gastroesophageal reflux disease-on PPI5) history of A. fib-on Xarelto 20 mg daily metoprolol 25 mg twic e daily6) coronary artery disease-EKG shows no acu te changes continue Imdur 60 mg daily, aspirin 81 m g daily and metoprolol 25 mg twice daily. Troponin will be checked again in the morning she did have chest pain which was atypical sharp transient.7) anxiety depression disorder-continue home meds including Cymbalta 30 mg daily, Prozac 20 mg daily, BuSpar 10 mg twice daily. Sami consulted for medicationtitr ation8) Hypokalemia-Potassium 3 this morning , replaced, patient stated that she has ch hypokalemia Code status, Full code NOK, daughter D/w the patient at [facility]. D/w the daughter Shea over phone. Possible dc in a m Quality: Gen Med Crit Care Current MedicationsCu rrent medication review:I attest that the foregoing medication list in the medical record is true, accurate, and complete to the best of my knowled ge. VTE ProphylaxisVTE prophylaxis initiated: yes Advanc ed Care Plan 65 or OlderDiscussed with: patientDiscussio n included: code status (full code) BMI Screening > 25 or < 18.5BMI status/follow-up: abnl BMI, pt to F/U w/PCP HTN Screening/Follow-upB/P assess/follow-up: pre-existing hx of HTN at 1511 R PT #:[id number] OF REPORTPRProgress [id number]:14:00V.[id number] lable for patient [id number]:11:2 4 2020-11-02 [id number]:35:00 [facility] 10:35:00 [facility] ([facility])Hospitalist Progress NoteREPORT#:[id number] REPORT STATUS: SignedDATE:11/02/20 TIME: 1035 PATIENT: KRISTEN CAUSEY UNIT #: [id number]#: [id number] [address] [birth year] AGE : 60 SEX: F ATTEND: Naya Cruz [facility] AUTHOR: Naya Cruz MD * A LL edits or amendments must be made on the electronic/computer document * SubjectiveChief Complaint:The patient was admitted with Generali sed weakness and confusion, was found to have electr olyte imbalance. SHe stated that she vomited yesterday . Tolerated some breakfast today Objective General VS/I O:Vital Signs: Date Time Temp Pulse Resp B/P B/P Pulse O2 O2 Flow FiO2 Mean Ox Delivery Rate 11/02 1531 98.2 62 18 99/61 73.6 90 Nasal cannula 11/02 1118 98 .2 60 18 131/79 96.1 93 Nasal cannula 11/02 0719 97.7 60 18 145/86 105.4 92 Room air 11/02 0410 97.9 57 16 1 48/87 107.2 91 Room air 11/02 0031 98.4 64 16 137/81 9 9.9 93 11/02 0005 65 18 157/88 110.6 91 11/01 2236 97.9 62 18 129/82 97.6 94 11/01 1850 98.9 61 16 112/71 84 9 9 Room air 11/01 1825 97 24 hour I O ending at 0700: 0700 11/01 1900 Intake Total Output Total Balanc e Patient 72.727 kg Weight Weight Bed scale Measur ement Method PATIENT WEIGHT: Weight (lb): Weight (oz): Weight (kg): 72.727 Medications:Active Meds + DC'd Last 24 HrsAtorvastatin Calcium 40 MG BEDTIME PO Potassi um Chloride/Water 100 ML Q2H IV (DC) Aspirin 81 MG DAILY PO Buspirone HCl 10 MG BID PO Duloxetine HCl 30 MG DAILY PO Fluoxetine HCl 20 MG DAILY PO Isosorbid e Mononitrate 60 MG DAILY PO Lisinopril 10 MG MARNI LY PO Metoprolol Tartrate 25 MG Q12HR PO Nifedipine 60 MG DAILY PO Pantoprazole Sodium 40 MG DAILY PO Pota ssium Chloride 20 MEQ BID PO Rivaroxaban 20 MG DAILY P O Tramadol HCl 50 MG Q6H PRN PRN PO Magnesium Sulf ate 50 ML Q2H IV (DC) Nitroglycerin 0.4 MG Q5M PRN PRN SL Potassium Chloride 50 ML Q1H IV (DC) Acetaminoph en 650 MG Q4H PRN PRN PO (DC) Ondansetron HCl 4 MG Q6H PRN PRN IV (DC) Undefined Medication 20 MEQ X1ED STA PO (DC) Physical ExamGeneral appearance: alert, awake, orientedHead/Eyes: atraumatic, clear cornea, EOM I, normal conjunctiva/sclera, normal eyelids/perior b., normocephalic, PERRLENT: dry mucosal membrane, n ormal sinusNeck: full range of motion, non-tender, nor mal thyroid, supple/no meningismus, no bruit/NL chavarria tids, no JVD, no masses or swellingCardiovascular: nor mal capillary refill, normal heart sounds, regular r ate rhythm, no ectopy, no gallop, no heave, no murmu r, no rub, no thrillRespiratory: clear to auscultation , no distressAbdomen: non-tender, normal bowel sounds , soft, no distention, no guarding, no hernia, no mass/organomegaly, no reboundExtremities: moves all, normal capillary refill, normal range of motion, no edemaMusculoskeletal: normal inspection, painles s range of motionNeuro/SLOT FLOOR ATTENDANT: alert, oriented X 3, CNII-XI I intact, normal speech, reflexes equal bilat, no motor deficits, no sensory deficitsSkin: dry, intactPsychiatry: anxious, normal judgment/insig ht, not homicidal, not suicidal ResultsFindings/Data:Lab oratory Tests 11/02 11/02 11/02 11/02 11/02 0849 0519 0 519 0519 0519Chemistry Sodium (136 - 145 mmol/L) 145 Potassium (3.5 - 5.1 mmol/L) 2.3 *L Chloride (9 8 - 107 mmol/L) 104.0 Carbon Dioxide (21 - 32 mmol/L) 32 .0 Anion Gap (10 - 20) 11.3 BUN (7 - 18 mg/dL) 21 H Creatinine (0.55 - 1.02 mg/dL) 0.70 Glomerular Filtr Rate (>=60 mL/min) > 60 BUN/Creatinine Ratio (10 - 20) 31.3 H Glucose (74 - 106 mg/dL) 108 H Calciu m (8.5 - 10.1 mg/dL) 8.8 Magnesium (1.8 - 2.4 mg/dL) 2 .7 H Total Bilirubin (0.0 - 1.0 mg/dL) 0.30 AST (15 - 37 IUnit/L) 14 L ALT (12 - 78 IUnit/L) 9 L Total Al k Phosphatase (45 - 117 IUnit/L) 97 Ammonia (11 - 32 umol/L) 27 Troponin I (0 - 0.045 ng/mL) 0.007 0 .009 Total Protein (6.4 - 8.2 gram/dL) 6.1 L Albumin (3.4 - 5.0 g/dL) 3.2 L Globulin (2.7 - 4.2 gram/dL) 2. 9 Albumin/Globulin Ratio (0.75 - 1.50) 1.1 11/02 0 11/01 11/01 11/01 0141 1848 1830 1830 Chemistry POC Gl ucose (74 - 106 mg/dL) 126 H Hemoglobin A1c (% HbA1) 6 .1 Estim Average Glucose (MG/DL) 128 Iron (50 - 175 ug/dL) 37 L TIBC (250 - 450 mcg/dL) 431 % Saturation ( 13 - 45 %) 8.58 L Ferritin (8 - 388 ng/mL) 14 Troponin I (0 - 0.045 ng/mL) 0.016 Triglycerides (20 - 150 mg/dL ) 212 H Cholesterol (0 - 200 mg/dL) 216 H LDL Choleste rol Measurd (100 - 129 mg/dL) 148 H HDL Cholesterol (40 - 60 mg/dL) 54 Cholesterol/HDL Ratio (0 - 4.9 RATI O) 4.0 Vitamin B12 (193 - 986 pg/mL) 366 TSH (0.36 - 3 .74 uIU/mL) 1.908 Laboratory Tests 11/01 1830 Coagu lation INR (0.8 - 1.2) 1.1 PTT (Leon) (23.0 - 37.0 seco nds) 26.8 PT Patient/Control Mix (9.0 - 14.0 seconds ) 12.2 Laboratory Tests 11/02 11/01 0519 1830 Hematolo gy WBC (4.5 - 12.5 K/mm3) 6.6 8.1 RBC (3.7 - 5.2 mill/m m3) 4.18 4.68 Hgb (11.5 - 15.5 gram/dL) 10.2 L 11.4 L Hct (36.0 - 46.0 %) 33.3 L 36.8 MCV (80 - 98 fL) 79. 7 L 78.6 L MCH (27.0 - 33.0 picogram) 24.4 L 24.4 L MCHC (33.0 - 36.0 gram/dL) 30.6 L 31.0 L RDW (11.6 - 16.2 %) 15.3 15.1 RDW Std Deviation (37.0 - 51.0 fL) 44. 1 Plt Count (150 - 450 K/mm3) 274 285 MPV (6.7 - 11.0 fL) 10.1 11.0 Neut % (Auto) (39.0 - 69.0 %) 54.5 Lym ph % (Auto) (25.0 - 55.0 %) 35.4 [place] % (Auto) (0.0 - 10.0 %) 7.8 Eos % (Auto) (0.0 - 5.0 %) 1.8 Baso % (Au to) (0.0 - 1.0 %) 0.3 Neut # (Auto) (1.8 - 7.7 K/mm3 ) 3.62 Lymph # (Auto) (1.0 - 5.0 K/mm3) 2.35 [place] # (Au to) (0 - 0.8 K/mm3) 0.52 Eos # (Auto) (0.0 - 0.5 K/mm3) 0.12 Baso # (Auto) (0.0 - 0.2 K/mm3) 0.02 Add Manual Diff NO Nucleated RBC % (0 - 0 %) 0.0 Nucleated RBCs # ( Man) (0.0 - 0.1 K/mm3) 0.00 Laboratory Tests 11/01 21 20 Serology SARS-CoV-2 Ag (Rapid) (NEGATIVE) NEGAT BLANCA Laboratory Tests 11/02 0700 Toxicology Urine Opi ates Screen (<300 ng/mL) NEGATIVE Urine Methadone Scr een (<300 ng/mL) NEGATIVE Urine Barbiturates (<200 n g/mL) NEGATIVE Ur Phencyclidine Scrn (<25 ng/mL) NEGAT BLANCA Ur Amphetamines Screen (<1000 ng/mL) NEGATIVE U Benzodiazepines Scrn (<200 ng/mL) NEGATIVE Urine Cocaine Screen (<300 ng/mL) NEGATIVE Urine Canna binoids (<50 ng/mL) NEGATIVE Laboratory Tests 11/02 070 0 Urines Urine Color (YELLOW) Light-Yellow Urine Appearance (CLEAR) Cloudy H Urine pH (5.0 - 8.0) 6.0 Ur Specific [place] (1.001 - 1.035) 1.016 Urine Pr otein (NEGATIVE mg/dL) 10 (Trace) H Urine Glucose (UA) (NEGATIVE mg/dL) 150 (1+) H Urine Ketones (NEGAT BLANCA mg/dL) NEGATIVE Urine Blood (NEGATIVE mg/dL) 0.0 6 mg/dL (1+) H Urine Nitrite (NEGATIVE) NEGATIVE Urine Bilirubin (NEGATIVE mg/dL) NEGATIVE Urine Urobil inogen (NEGATIVE mg/dL) Normal Ur Leukocyte Esterase (N EGATIVE Toshia/uL) 250 Toshia/uL (2+) H Urine RBC (0 - 5 #/HPF ) 0-2 Urine WBC (0 - 5 per HPF) 21-50 H Ur Epithelial Cells (FEW per HPF) MANY Urine Bacteria (NONE #/HPF) MODERATE H Hyaline Casts (0 - 5 #/LPF) 6-10 H Ur ine Mucus (FEW #/LPF) FEW Radiology data:Recent Impressions:CAT SCAN - CT HEAD/BRAIN W/O CONT 2229 Report Impression - Status: SIGNED Enter ed: 11/01/2020 2306 IMPRESSION: 1. No CT evidence of acute intracranial abnormality.Impression By: Jhony 2 - Triston Ashraf M.D. Diagnosis, Assessment PlanPro blem List/A P: 1. Altered mental status 2. Hypokalemi a 3. UTI (urinary tract infection) 4. Hypertension 5. Paroxysmal A-fib Consultants: neurology, psychia try Free Text DxA P NotesFree text DxA P notes:1) ch holland in mental status-patient had generalized weakness w ith confusion. Shehad no focal weakness no seizure activity. CT brain negative, UA positive for UTI , start rocephin and monitor 2) hypertension-blood press ure was low has come up she normally takes mg daily and metoprolol 12-1/2 mg twice daily , and lisinopril 10 mg daily, all of which will be ord ered but held if systolic blood pressures less than 1 303) hyperlipidemia-on statin4) gastroesophageal refl ux disease-on PPI5) history of A. fib-on Xarelto 20 mg daily metoprolol 25 mg twice daily6) coronary ar palomo disease-EKG shows no acute changes continue Imdu r 60 mg daily, aspirin 81 mg daily and metoprolol 25 mg twice daily. Troponin will be checked again in the mor nahid she did have chest pain which was atypical sharp transient.7) anxiety depression disorder-continu e home meds including Cymbalta 30 mg daily, Prozac 20 m g daily, BuSpar 10 mg twice daily. Psaych consulte d for medicationtitration8) Hypokalemia-Potassium 2.3 this morning , replaced Code status, Full code arash BROWN D/w the patient at bedside. Quality: Gen Med Cri t Care Current MedicationsCurrent medication review:I a ttest that the foregoing medication list in the medica l record is true, accurate, and complete to the be st of my knowledge. VTE ProphylaxisVTE prophylaxis initiated: yes Advanced Care Plan 65 or OlderDis cussed with: patientDiscussion included: code status (f ull code) BMI Screening > 25 or < 18.5Patient's BMI: Current BMI: 28.4 BMI status/follow-up: abnl BMI, pt to F/U w/PCP HTN Screening/Follow-upLast documented vitals:Last Documented: Result Date Time Pulse Ox 90 11/02 1531 B/P 99/61 11/02 1531 B/P Mean 73.6 1531 O2 Delivery Nasal cannula 11/02 1531 Temp 9 8.2 11/02 1531 Pulse 62 11/02 1531 Resp 18 11/02 15 31 B/P assess/follow-up: pre-existing hx of HTN Electro nically Signed by Naya Cruz MD on 11/02/20 at 1711 RPT #:[id number] OF REPORTPRProgres s [id number]:35:00V.[id number] lable for patient [id number]:11:4 6 2020-11-01 [id number]:41:00 [facility] 20:41:00 [facility] ([facility])Hospitalist History PhysicalREPORT#:[id number] REPORT STATUS: SignedDATE:11/01/20 TIME: 2040 PATIENT: KRISTEN CAUSEY UNIT #: [id number]#: [id number] [address] [birth year] AGE: 60 SEX: F ATTEND: Francesca Dodd MDADM D AUTHOR: Francesca Dodd MD * AL L edits or amendments must be made on the electronic/com puter document * History of Present Illness HPIPCP:PCP : No Primary or Family Physician HPI:Patient is a 60-year-old female with unknown PCP.Patient has a history of chronic diastolic heart failure echo February 10, 2020 showed normal systolic functi on EF 55 to 60% with mild left ventricular wall thickn ess, hypertension, hyperlipidemia, chronic A. fib on Xarelto, Parkinson's, anxiety depression disorde r, TIA, coronary artery disease. Patient states that she was in her usual state of health and that for months sh e has been feeling bugs crawling allover her body but today she gone to a alliance party with her daughter she does l blanca alone ambulates independently. On the way home apparently patient felt nauseousand then threw u p once just bilious fluid. When they got home she just felt generalized weakness could not get out of the ca r so they got her out of the carand later on the driv er called EMS. Patient when EMS arrived did have transienthypotension blood pressure was 90/86 ga ve her IV fluids. Patient states that she had a headach e on the top of her head and that all of her limbs fe lt numb and heavy but there was actual no weakness in an y extremity no seizure activity no change in visio n no change in speech. She said her hands contracted into fists. She said she had some transient sharp kni felike pain across her chest for a minute some shortnes s of breath. She had nausea. [facility] only thing she complained of was the crawlin g of bugs all over her face arms legs chest. She was alert and oriented x3. Review of systems wasotherwise negative and patient says she has never had Covi d and did receive the Covid vaccine. Blood pressure al ready come up to 112/71 pulse ox 99% respiration 16 pu lse 61 temp 90.9. EKG reviewed by me was normal sinus r hythm LVH nonspecific ST-T wave changes. Remainder of ER evaluation Covid antigen wasnegative white count 8.1 hemoglobin 9.4 with decreased MCV MCH I will nico ck ironTIBC and ferritin. Platelets were 285. INR a nd PTT were normal. Sodium 142 potassium 2.2 she receiv ed 20 mEq of potassium in the ER I will give an additi onal 20 mEq of IV potassium and patient will get repeat chemistries in a.m. CO2 was 33 and BUN was 17 wi th creatinine of 1.4 GFR is 38 she appears to have a chronic renal failure stage III glucose 125 magn esium was 1.1 I ordered 2g of magnesium IV. We will ge t repeat magnesium level in a.m. as well. Troponin was 0.008 will get repeat troponin in a.m. alcohol l evel was 5 LFTs were normal lipase 39. I ordered a ur ine drug screen B12 level TSH hemoglobin A1c and CT of the head for the mental confusion. We will get neuro logy evaluation but it appears to be more psychiatric so we will get psychiatric consult as well. Review of systems otherwise neck. For patient's initial hypotensio n felt to be due to acute intravascular volume depletio n from the nausea and vomiting. Electrolytes have been corrected repeat electrolytes will be checked in a.m. we will check orthostatic blood pressures.Informant/historian: patient, prior re cords History Past Medical Surgical HxPatient History: 1. Altered mental status 2. Hypokalemia Additional medical history:Patient has a history of chronic diastol ic heart failure echo February 10, 2020showed norm al systolic function EF 55 to 60% with mild left ventricular wall thickness, hypertension, hyperlipidemia, chronic A. fib on Xarelto, Parkinson's,anxiety depression disorder, TIA, co ronary artery disease.Additional surgical history:Patie nt has a history of bilateral tubal ligation and C2 fus ion Family HistoryAdditional family history:Patient states that her father in his 90s had coronary art philly disease but essentially of old age mother d ied in her early 60s had hypertension coronary artery d isease and a pacemaker but she after sustaining a fall with a head injury Social HistoryAlcohol use: De nies EtOH useDrug use: Denies recreational drugsSmoki ng status: Smoking status for patients 13 years old or older: Never SmokerAdditional social history:Syl son resides at home alone and ambulates independentl y without any assistance Medication/Allergy-Vaccin e HxAllergies:Coded Allergies:No Known Allergies (01/16/18) Review of SystemsConstitutional:Repor ts: generalized weakness. Denies: chills, fatigue, f ever, lethargy, malaise, recent wt loss, other. Skin:D enies: abrasion, bruising, contusion, diaphoresis, ecch ymosis, itching, laceration, rash, swelling, other. Allergy/Immun:Reports: other (feeling likes bugs crawlling a). Denies: allergic reaction, anaphyl axis, hives, itching, rhinorrhea, sneezing. Eyes:Denie s: redness, discharge, visual loss/blurred, itching , diplopia, eye pain, photophobia, swelling, other . ENT:Denies: ear drainage, ear ringing, earache, hearing loss, mouth pain, nasal congestion, nose bleedin g, sinus problem, sore throat, throat pain, throat swelling, tongue pain, tongue swelling, toothach e, voice change, other. Respiratory:Reports: SOB. D enies: REDDY (dyspnea on exertion), hemoptysis, non produ ctive cough, parox nocturnal dyspnea, pleurisy, pleuri tic pain, pneumonia, productive cough (sputum), whee zing, other. Cardiovascular:Denies: chest pain, REDDY (d yspnea on exertion), edema, orthopnea, palpitations, pa zacarias nocturnal dyspnea, other. GI:Reports: nausea, vo miting. Denies: abdominal pain, anorexia, constipation, diarrhea, dysphagia, GERD, hematemesis, hematoch ezia, hiatal hernia, melena, rectal pain, other. :De nies: dysuria, flank pain, frequency, hematuria, noctu tayler, pelvic pain, , urgency, urinary retentio n, vaginal bleeding, vaginal discharge, other. Musculoskeletal:Denies: arthritis, extremity mildred n, extremity swelling, joint pain, joint swelling, lumbar pain, myalgias, neck pain, thoracic pain, other. Heme:Denies: adenopathy, bleeding, bruising, pet echiae, other. Neuro:Reports: confusion, headache, numbn ess (all over), other (limbs feel heavy). Denies: bl adder dysfunction, bowel dysfunction, change in LOC, dizziness, focal weakness, gait problem, lighthe aded, seizure, slurred speech, spinning sensation, syn cope, unable to speak, vision change, weakness. Psych:Reports: confusion, depression. Denies: agitation, anxiety, auditory hallucination, rincon ge in mental status, delusional, homicidal ideation, hostile,insomnia, stress, suicidal ideation, vis ual hallucination, other. All systems rev neg: excep t as noted Physical ExamVS/I O:Vital Signs Date Temp Pulse Resp B/P B/P Mean Pulse Ox FiO2 11/01 98.3-98.9 61-64 16-18 96-112/54-71 68-84 97-99 Last Documented: Result Date Time Pulse Ox 99 11/01 1849 B/P 112/71 10/20 B/P Mean 84 11/01 1850 O2 Delivery Room air 10/20 Temp 98.9 11/01 1849 Pulse 61 11/01 1850 Resp 1 6 11/01 1849 Patient Weight and BMI Weight (kg): 72.727 BMI: 28.4 General appearance: alert, awake, oriented, no acute distress, pleasant, conversational, mental status normal, no respiratory distressHead/Eyes: atraum atic, clear cornea, EOMI, normal conjunctiva/sclera, n ormal eyelids/periorb., normocephalic, PERRLENT: kamran l dentition, normal ear left, normal ear right, no rmal nose, normal pharynx, normal sinusNeck: full ran ge of motion, non-tender, normal thyroid, supple/no meningismus, no bruit/NL carotids, no JVD, no ma sses or swellingCardiovascular: normal capillary refill, normal heart sounds, regular rate rhythm, no ectopy, no gallop, no heave, no murmur, no rub, no thrillRespiratory: clear to auscultation, no distressAbdomen: non-tender, normal bowel sounds , soft, no distention, no guarding, no hernia, no mass/organomegaly, no rebound Abdomen quadrants: LLQ normal bowel sounds, LUQ normal bowel sounds, RL Q normal bowel sounds, RUQ normal bowel soundsExtremities: moves all, normal capillary r efill, normal range of motion, no edemaMusculoskeletal: normal inspection, painless range of motionNeuro/SLOT FLOOR ATTENDANT: a lert, oriented X 3, CNII-XII intact, normal speech, re flexes equal bilat, no motor deficits, no sensory deficitsSkin: dry, intactLymphatics: axilla norm al, inguinal normal, neck normal, no lymphadenopathyPsychiatry: anxious, depressed, n ormal judgment/insight, not homicidal, not suicidal, s lightly confused ResultsFindings/Data:Laboratory Tests: 11/01 11/01 11/01 11/01 2120 1848 1830 1530Chemistry S odium (136 - 145 mmol/L) 142 Potassium (3.5 - 5.1 mmo l/L) 2.2 *L Chloride (98 - 107 mmol/L) 102.0 Carbon D ioxide (21 - 32 mmol/L) 33.0 H Anion Gap (10 - 20) 9.2 L BUN (7 - 18 mg/dL) 17 Creatinine (0.55 - 1.02 mg/dL ) 1.40 H Glomerular Filtr Rate (>=60 mL/min) 38 BUN/Creatinine Ratio (10 - 20) 12.5 Glucose (74 - 106 mg/dL) 125 H POC Glucose (74 - 106 mg/dL) 126 H Calcium (8.5 - 10.1 mg/dL) 9.0 Magnesium (1.8 - 2.4 mg/d L) 1.1 L Total Bilirubin (0.0 - 1.0 mg/dL) 0.30 Direct Bilirubin (0.0 - 0.20 mg/dL) < 0.10 AST (15 - 37 IUnit/L) 18 ALT (12 - 78 IUnit/L) 10 L Total Al k Phosphatase (45 - 117 IUnit/L) 110 Troponin I ( 0 - 0.045 ng/mL) 0.008 Total Protein (6.4 - 8.2 gram /dL) 6.9 Albumin (3.4 - 5.0 g/dL) 3.8 Globulin (2.7 - 4.2 gram/dL) 3.1 Albumin/Globulin Ratio (0.75 - 1.50 ) 1.2 Lipase (12.00 - 57.00 U/L) 39Coagulation INR (0. 8 - 1.2) 1.1 PTT (Leon) (23.0 - 37.0 seconds) 26.8 P T Patient/Control Mix (9.0 - 14.0 12.2seconds)Ivan tology WBC (4.5 - 12.5 K/mm3) 8.1 RBC (3.7 - 5.2 mill/ mm3) 4.68 Hgb (11.5 - 15.5 gram/dL) 11.4 L Hct (36.0 - 46.0 %) 36.8 MCV (80 - 98 fL) 78.6 L MCH (27.0 - 33. 0 picogram) 24.4 L MCHC (33.0 - 36.0 gram/dL) 31.0 L RDW (11.6 - 16.2 %) 15.1 Plt Count (150 - 450 K/mm3) 285 MPV (6.7 - 11.0 fL) 11.0Serology SARS-CoV-2 Ag ( Rapid) (NEGATIVE) NEGATIVEToxicology Ethyl Alcohol (0.0 - 3.0 mg/dL) 5 H Laboratory Tests 11/01/20 1830:[Embe dded Image Not Available] 11/01/20 1530:[Embedded Tomasa ge Not Available] Radiology data:Recent Impressions:RAD IOLOGY - XR CHEST 1 V 11/01 1600 Report Impression - Status: SIGNED Entered: 11/01/2020 1630 IMPRESSI ON: No radiographic evidence of acute cardiopulmonary p rocess. LOCATION: [facility] Impression By: Ariane Morel Ph am D.O. Results: labs reviewed, vital signs stable Diagn osis, Assessment PlanProblem List/A P: 1. Altered ment al status 2. Hypokalemia Free Text A P:1) change in mental status-patient had generalized weakness with con fusion. Shehad no focal weakness no seizure activity. I ordered CT of the head without contrast. Patient describ es being having a sensation of all limbs being numb and heavy. Also describes a sensation of bugs crawli ng all over her for some period of time. It appears to be more psychiatric will consult neurology and psychiatr y. We will check hemoglobin A1c, B12 level, TSH, freda ia level. Patient appears to be at her baseline men valentina status she is alert and oriented [id number] to parham ve anxiety depression disorder. The change in menta l status could be due to transient hypotension fro m transient intravascular volume depletion from he r nausea and vomiting. She was given fluid and electrolyte replacements will check orthostatic blood pressures.2) hypertension-blood pressure was low has come up she normally takes [id number] mg daily and metoprolol 12-1/2 mg twice daily , and lisinopri l 10 mg daily, all of which will be ordered but held if systolic blood pressures less than 1303) hyperlipidemia-check hemoglobin A1c lipid profil e TSH and continue Lipitor 40mg at bedtime4) gastroeso phageal reflux disease-patient normally takes Prilosec 4 0 mg daily which has been renewed5) history of A. fib-patient EKG shows normal sinus rhythm she wi ll continue Xarelto 20 mg daily metoprolol 25 mg tw ice daily6) coronary artery disease-EKG shows no acu te changes continue Imdur 60 mg daily, aspirin 81 m g daily and metoprolol 25 mg twice daily. Troponin will be checked again in the morning she did have chest pain which was atypical sharp transient.7) anxiety depression disorder-continue home meds including Cymbalta 30 mg daily, Prozac 20 mg daily, BuSpar 10 mg twice daily. Consult psychiatry as she appears n ot to be adequately medicated8) electrolyte abnormalities-potassium and magnesium have been replaced will recheck in a.m.Consultants: neurol sunily, psychiatryPlan discussed with: patient Edgard ricks Signed by Francesca Dodd MD on 11/01/20 at 2252 [facility] #:[id number] OF REPORTHPHistory and physical [id number]:41:00V.[id number] 7AVAvai lable for patient savuNXQCNTGQKWKKDV3975-76-83P7 2:53:01 2020-11-01 [id number]:38:00 [facility] 15:38:[address] [facility] ([facility])EMERGENCY PROVIDER REPORTREPORT#:[id number] REPORT STATUS: SignedDATE:11/01/20 TIME: 1538 PATIENT: KRISTEN CAUSEY UNIT #: [id number]#: [id number] ROOM/BED:AGE: 60 SEX: F PCP PHYS: N o Primary or Family PhysicianSERVICE AUTHOR: Peg Allan MD * ALL edits or amendments m ust be made on the electronic/computer document * HPI-Dizziness/Weakness GeneralInitial Greet Date /Time 11/01/20 1527PCPpt doesn't remember name PresentationChief Complaint Weakness, generalize d Free Text HPI NotesFree Text HPI [id number] fem chel brought in by EMS with a past no history of mult iple medical problems including atrial fibrillation a nd stroke presents for weakness and nearsyncope. EM S says that they were called by the patient's daughter. EMS reportsthe patient and daughter were driving zan k from lunch when the patient got nauseated and vomited on the way home. The daughter per EMS stated that she w astoo weak to get out of the car so they assisted her to the ground. When EMS arrived the patient was lying f lat. Initial blood pressure is 90/86. They placed an IV and started fluids and her most recent blood pressur e is 96/58. Patient says that she does not remember w hat happened. She denies any pain. She does say that she often gets the sensation that "spiders are crawl ing past my skin" on her face, arms and legs. She sa ys that often when this happens her lips will feel numb as well. Review of Systems ROS StatementsUnable to Obtain ROS Uncooperative Focused Review of SystemsConstitutionalDenies: Fever. RespiratoryD enies: Cough, non-productive, Cough, productive, Shortn ess of breath. CardiovascularDenies: Chest pain. GIDeni es: Abdominal pain. NeurologicReports: Generalized weakness. Past Medical History - AdultStated Com plaint NEAR SYNCOPEAllergiesCoded Allergies:No Known Al lergies (01/16/18) Home MedicationsActive ScriptsASPIRIN EC (ECOTRIN) 81 MG PO DAILY ASPIRIN EC (ECOTRIN) 81 MG PO DAILY #30 TAB Prov: 01/17/18RIVAROXABAN (XARELTO ) 20 MG PO DAILY RIVAROXABAN (XARELTO) 20 MG PO DAILY #3 0 TABS Prov: 02/12/20ATORVASTATIN (LIPITOR) 40 MG PO BE DTIME ATORVASTATIN (LIPITOR) 40 MG PO BEDTIME #30 TAB Prov: 02/12/20ISOSORBIDE MONONITRATE SR (IMDUR) 60 MG PO DAILY ISOSORBIDE MONONITRATE SR (IMDUR) 60 MG PO DAILY #30 TAB Prov: 02/12/20LISINOPRIL (ZESTRIL) 10 MG PO DAILY LISINOPRIL (ZESTRIL) 10 MG PO DAILY #30 TA B Prov: 02/12/20METOPROLOL TARTRATE (LOPRESSOR) 25 MG P O Q12HR METOPROLOL TARTRATE (LOPRESSOR) 25 MG PO Q12HR # 60 TAB Prov: 02/12/20NITROGLYCERIN (NITROSTAT) 0.4 MG S L Q5M PRN PRN CHEST PAIN NITROGLYCERIN (NITROSTAT) 0.4 MG SL Q5M PRN PRN CHEST PAIN #30 TAB Prov: 02/12/20 Re ported MedicationsNIFEdipine XL (NIFEDICAL XL) 60 MG PO DAILY OMEPRAZOLE ER (PriLOSEC) 40 MG PO DAILY busPIRon e (BUSPAR) 10 MG PO BID RASAGILINE (AZILECT) 0.5 M G PO DAILY SOLIFENACIN (VESICARE) 5 MG PO DAILY DULox etine DR (CYMBALTA) 30 MG PO DAILY POTASSIUM CHLORIDE ER (KLOR-CON M20) 20 MEQ PO BID FLUoxetine (PROzac) 20 MG PO DAILY Past Medical History:Reports: Depressio n/mood disorder, Hypertension, Dyslipidemia. Past Surgi florence History:Reports: Bilateral tubal ligation. Addit ional Surgical Historyc2 fusionFamily History:Reports: Cancer (father), Heart disease (mother), Stroke/TIA. Al cohol Use Denies EtOH useDrug Use Denies recreational drugsSmoking status: Smoking status for patients 13 years old or older: Unknown,if ever smoked Physi florence Exam Vital SignsVital SignsFirst Documented: Res ult Date Time Pulse Ox 98 11/01 1525 B/P 96/54 11/01 1525 B/P Mean 68 11/01 1525 O2 Delivery Room air 10/20 3 1525 Temp 36.8 11/01 1525 Pulse 64 11/01 1525 Resp 18 11/01 1525 Last Documented: Result Date Time Pulse Ox 99 11/01 1850 B/P 112/71 11/01 1850 B/P Mean 84 1850 O2 Delivery Room air 11/01 1850 Temp 37.2 0 11/01 1850 Pulse 61 11/01 1850 Resp 16 11/01 1850 Rev iew of Vital Signs Reviewed Focused PEGeneral/Const Text/Dict NotesAwake. No signs of distress.MS He ad Head AtraumaticEyes Eyes PERRLResp/Chest Respiratory/Chest Breath sounds NL, Breath sound s = bilat, No respiratory distressCardiovascular Cardiovascular Heart rate NL, Regular rhythm, He art sounds NLAbdomen/GI Abdomen/GI Soft, No guarding , No reboundNeurologic Text/Dict NotesHerself. Collin ws her daughter's name. However when asked other questi ons she often replies "I do not know". Does follow comma nds. Equal handgrips. Interpretation Diagnostics Lab Results InterpretationResultsLaboratory Tests 11/01/201829:[Embedded Image Not Available] 11/01/20 1530:[Embedded Image Not Available]Laboratory Te sts: 11/01 11/01 11/01 184 1830 1530 Chemistry Sodi um (136 - 145 mmol/L) 142 Potassium (3.5 - 5.1 mmol/L) 2 .2 *L Chloride (98 - 107 mmol/L) 102.0 Carbon Dioxide (21 - 32 mmol/L) 33.0 H Anion Gap (10 - 20) 9.2 L BUN (7 - 18 mg/dL) 17 Creatinine (0.55 - 1.02 mg/dL) 1.40 H Glomerular Filtr Rate (>=60 mL/min) 38 BUN/Creat inine Ratio (10 - 20) 12.5 Glucose (74 - 106 mg/dL) 12 5 H POC Glucose (74 - 106 mg/dL) 126 H Calcium (8.5 - 10 .1 mg/dL) 9.0 Magnesium (1.8 - 2.4 mg/dL) 1.1 L To [place]ent[place] Bilirubin (0.0 - 1.0 mg/dL) 0.30 Direct Bilirubi n (0.0 - 0.20 mg/dL) < 0.10 AST (15 - 37 IUnit/L) 18 A LT (12 - 78 IUnit/L) 10 L Total Alk Phosphatase (45 - 1 17 IUnit/L) 110 Troponin I (0 - 0.045 ng/mL) 0.008 Total Protein (6.4 - 8.2 gram/dL) 6.9 Albumin (3.4 - 5 .0 g/dL) 3.8 Globulin (2.7 - 4.2 gram/dL) 3.1 Albumin/Globulin Ratio (0.75 - 1.50) 1.2 Lipase (12.00 - 57.00 U/L) 39 Coagulation INR (0.8 - 1.2) 1.1 PTT (Leon) (23.0 - 37.0 seconds) 26.8 PT Patient/Con trol Mix (9.0 - 14.0 seconds) 12.2 Hematology WBC (4. 5 - 12.5 K/mm3) 8.1 RBC (3.7 - 5.2 mill/mm3) 4.68 H gb (11.5 - 15.5 gram/dL) 11.4 L Hct (36.0 - 46.0 %) 36.8 MCV (80 - 98 fL) 78.6 L MCH (27.0 - 33.0 picogr am) 24.4 L MCHC (33.0 - 36.0 gram/dL) 31.0 L RDW (11 .6 - 16.2 %) 15.1 Plt Count (150 - 450 K/mm3) 285 MP V (6.7 - 11.0 fL) 11.0 Toxicology Ethyl Alcohol (0.0 - 3.0 mg/dL) 5 H Recent Impressions:RADIOLOGY - XR NICO ST 1 V 11/01 1600 Report Impression - Status: SIGNED Entered: 11/01/2020 1630 IMPRESSION: No radiogra phic evidence of acute cardiopulmonary process. LOCAT ION: LP Impression By: Ariane Horton D.O. Re-Evaluation [facility] ED CourseMedication(s) OrderedMedication(s) Ordered:Central Nervous Sys tem Agents Sig/Sb Start time Last Medication Dose R oute Stop Time Status Admin Acetaminophen 650 MG Q4H PRN PRN 11/01 2029 UNV PO 11/02 0825 Electrolytic, Calor ic, And Vangie Sig/Sb Start time Last Medication Dose Rout e Stop Time Status Admin Undefined Medication 20 MEQ X1 ED STA 11/01 2006 DC PO 11/01 2007 Sodium Chloride 1,00 0 ML X1ED STA 11/01 1534 DC 11/01 IV 11/01 1633 1999 Gastrointestinal Drugs Sig/Sb Start time Last Medication Dose Route Stop Time Status Admin Ondansetron HCl 4 MG Q6H PRN PRN 11/01 2029 UNV IV 11/02 0825 Patient Discharge Departure Vital Signs/ConditionVital SignsFirst Documented: Resu lt Date Time Pulse Ox 98 11/01 1525 B/P 96/54 11/01 152 5 B/P Mean 68 11/01 1525 O2 Delivery Room air 11/01 15 25 Temp 36.8 11/01 1525 Pulse 64 11/01 1525 Resp 18 11/01 1525 Last Documented: Result Date Time Pulse Ox 99 11/01 1850 B/P 112/71 11/01 1850 B/P Mean 84 1850 O2 Delivery Room air 11/01 1850 Temp 37.2 11/01 1850 Pulse 61 11/01 1850 Resp 16 11/01 1850 All vital signs available at the time of this entry have been re viewed. Clinical ImpressionClinical ImpressionPrimary Impression: Altered mental statusSecondary Impre ssions: Hypokalemia, Near syncope Disposition DecisionAd steffen Admit Physician Name Francesca Dodd MD A dmit Physician Hospitalist Request Time 2026 Request Date 11/01/20 )( Admission Accepts Yes )( Accepted Ti me 2026 )( Accepted Date 11/01/20 Call Information will see patient, agrees with eval, agrees with plan at 2026RPT #:[id number] OF REPORTEDEmergency department zrmspt1990-74-82R34:38:00V.[id number] ailable for patient cnriYJHNSXRKYCVJBK0389-66-58N47:27:3 6 2020-02-12 [id number]:30:00 [facility] 11:30:00 [facility]Hospitalist Discharg e SummaryREPORT#:[id number] REPORT STATUS: SignedDATE:02/12/20 TIME: 1130 PATIENT: KRISTEN CAUSEY UNIT #: [id number]#: [id number] ROOM/BED: [facility]-ADOB: [birth year] AGE : 59 SEX: F ATTEND: Julio Charles [facility] DT: 01/21 AUTHOR: Ashley Cantu MD * ALL edits or amendm ents must be made on the electronic/computer document * PCP PCPPCP:PCP: No Primary or Family Physician Disch arge to: home with home health svc General Informatio nDate of admission:Observation Start Date: 02/08/20Dat e of admission: 02/09/20 Discharge date: 02/12/20Admi ssion diagnosis:Headache with blurry visionHypokalemiaHypertensionHyperlipidemiaHisto ry of Parkinson's diseaseAtrial fibrillationOSAObesity Discharge diagnosis:Acute strokeHeadacheHypokalemiaUTIAtrial fibrillationHypertensionParkinson's diseaseDepressionAlcohol useObesityHospital cour se:Ms. Causey is 59-year-old female with with histo ry of hypertension, hyperlipidemia, cerebral aneurysm diagnosed 2 years ago, depression, chronic hypok alemia who presented to the hospital with complaints of sudden onset of headache accompanied with dizziness, bl urry vision and nausea. Initial evaluation with CT br ain showed a stable aneurysm. Patient underwent MRI of thebrain which showed evidence of acute small ve ssel infarcts and lacunar infarcts. She was also eval uated by neurologist and secondary prevention of strok e was initiated. Patient is status post cerebral angio gram and has been off of aspirin since then. She has a history of atrial fibrillation, discharged on or al anticoagulation on previous admission. medicatio n was discontinued at some point. Given repeated strok e, patient has been resumed on anticoagulation for atrial fibrillation. Echocardiogram with bubble study r uled out shunt.This was also discussed with patient's daughter who is primary caregiver and next of ki n. Patient will follow up with PCP and neurologist at [facility].She was also treated for ur inary tract infection.She has a history of chronic hypokalemia and will need outpatient work-up as well.She remained hemodynamically stable and esther l follow up with PCP, neurologist, clerk of scales giuliano antoine and clerk of scales.Pt. condition on discharge: stableAllergies:Allergies:No Known Allergies (Co ded, 01/16/18) Med Rec Med RecDischarge meds:Stop ju ing the following medications:LABETALOL (TRANDATE) 300 M G TAB 300 MILLIGRAM ORAL TWICE DAILY. Continue taking these medications:POTASSIUM CHLORIDE ER (KLOR-CON M20) 20 MEQ TAB.SR 20 MILLIEQUIVALENT ORAL TWICE DAILY. NIFE dipine XL (NIFEDICAL XL) 60 MG TAB.ER.24H 60 MILLIGRAM ORAL DAILY. Instructions: Hold for SBP<130 FLUoxetine (PROzac) 20 MG CAP 20 MILLIGRAM ORAL DAILY. OMEP RAZOLE ER (PriLOSEC) 40 MG CAP.DR 40 MILLIGRAM ORAL MARNI LY. busPIRone (BUSPAR) 10 MG TAB 10 MILLIGRAM ORAL T WICE DAILY. RASAGILINE (AZILECT) 0.5 MG TAB 0.5 JONAH GRAM ORAL DAILY. SOLIFENACIN (VESICARE) 5 MG TAB 5 NJ LLIGRAM ORAL DAILY. DULoxetine DR (CYMBALTA) 30 MG CAP.D R 30 MILLIGRAM ORAL DAILY. ASPIRIN EC (ECOTRIN) 81 MG TAB.EC 81 MILLIGRAM ORAL DAILY. Qty = 30 RIVAROXABAN (X ARELTO) 20 MG TAB 20 MILLIGRAM ORAL DAILY. Qty = 30 This prescription has been renewed ATORVASTATIN (LIPI TOR) 40 MG TAB 40 MILLIGRAM ORAL BEDTIME. Qty = 30 This prescription has been renewed ISOSORBIDE MONONIT RATE SR (IMDUR) 30 MG TAB.SR.24H 60 MILLIGRAM ORAL DAILY . Qty = 30 This prescription has been renewed LISINOPRIL (ZESTRIL) 10 MG TAB 10 MILLIGRAM ORAL DAILY. Qty = 30 This prescription has been renewed METOPROLOL TA RTRATE (LOPRESSOR) 25 MG TAB 25 MILLIGRAM ORAL EVERY 12 HOURS. Qty = 60 This prescription has been renewed NITROGLYCERIN (NITROSTAT) 0.4 MG TAB.SL 0.4 MILL IGRAM SUBLINGUAL EVERY 5 MINUTES NEEDED. as needed for CHEST PAIN Qty = 30 This prescription has been r enewed Discharge InstructionsDiet: cardiacActivity: as tolerated Restrictions (free text):ACTIVITY TOLERATED Follow-up AppointmentsPCP: PCP: [facility] or Family Physician Follow up timeframe: In 1-2 weeksAttending Physician: Attending Physician: Julio Charles MD Ucyibjq ing provider 1: Provider 1 (free text): Neurologist at [facility] Follow up timeframe: In 3 days Objective GeneralVS/I O:Vital Signs: Date Time Temp Pulse Resp B/P B/P Pulse O2 O2 Flow FiO2 Mean Ox Delivery Rate 02/11 0735 98.8 59 17 145/80 101.3 97 Room air 0 02/11 0341 98.1 71 18 138/72 94.1 94 02/10 2342 98.4 4 4 20 137/76 96.1 93 02/10 1939 99.1 68 18 158/95 115. 6 97 02/10 1534 99.1 67 17 129/79 95.8 94 Room air 24 hour I O ending at 0700: 02/11 0700 02/10 1900 Intake Total 480 Output Total Balance 480 Intake, Oral 480 N umber Voids 5 Medications:Active Meds + DC'd Last 24 HrsAspirin 81 MG DAILY PO Potassium Chloride 60 MEQ ONCE ONE PO (DC) Iopamidol 100 ML ONCE PRN IV Lisinopril 20 MG DAILY PO (DA) Hydrocodone Bitart/Acetaminophen 1 TAB Q4H PRN PRN PO Cefazo carlos enrique Sodium 1 GM Q8H IV Sterile Water 10 MLDuloxetine HCl 30 MG DAILY PO Atorvastatin Calcium 40 MG BEDTIME P O Topiramate 50 MG BEDTIME PO Enoxaparin Sodium 40 MG Q24H SUBQ Isosorbide Mononitrate 60 MG DAILY PO Metoprolol Tartrate 25 MG Q12HR PO Pantoprazole Sodium 40 MG 0600 PO Acetaminophen 650 MG Q4H PRN PRN PO Metoclopramide HCl 10 MG Q6H PRN PRN IV Physical ExamGeneral appearance: alert, awakeHead/Eyes: atraumatic, EOMI, normocephalic, PERRLENT: moist mucosal membranes, normal pharynx, normal sinusN naman: full range of motion, non-tender, supple/no meningismusCardiovascular: normal capillary refi ll, normal heart sounds, regular rate rhythmRespirat ory: aerating well, clear to auscultation, no distressAbdomen: non-tender, normal bowel sounds , soft, no distentionExtremities: moves all, no calf tenderness, no edemaMusculoskeletal: normal insp ection, painless range of motionNeuro/SLOT FLOOR ATTENDANT: alert, CNII-X II intact, normal speech, no motor deficits, no sen paula deficits Considered stroke alert: noSkin: dry, intactPsychiatry: normal affect, normal mood, no hallucinations Treatments ProceduresImaging:Rece nt Impressions:CAT SCAN - CTA HEAD 02/09 1400 Re port Impression - Status: SIGNED Entered: 02/10/2020 1625 IMPRESSION: Stable basilar artery tip aneurysm projecting towards the right andposteriorly carmen uring 4 mm and M1/M2 junction left MCA aneurysmmeasuring 3.6 mm projecting anteriorly and towards the right.Impr ession By: Li Rangel M.D.CAT SCAN - CTA NECK 02/10 1100 Report Impression - Status: SIGNED Entered: 02/11/2020 1605 IMPRESSION: No hemodyna mically significant stenosis. No aneurysm within the neck.Stable right basal artery tip aneurysm and the left M1/M2 junctionaneurysm.Impression By: Norma Rangel M.D. Quality Current MedicationsCu rrent medication review:I attest that the foregoing medication list in the medical record is true, accurate, and complete to the best of my knowled ge. BMI Screening > 25 or < 18.5BMI status/follow-up: ab nl BMI, pt to F/U w/PCP Tobacco Use/CounselingTobacco use/counseling: non tobacco user HTN Screening/Follow-upB/P assess/follow-up: pre-exi sting hx of HTN at 1550 RPT #:[id number] OF REPORTDSDischarge aanbuuk2395-06-72X61:30:00V.[id number] [facility] txfxJRKTBBLAZMSDVY4575-13-97N22:51 :02 2020-02-11 [id number]:11:00 [facility] [place] [facility] 15:11:[address] [facility] ([facility])Neurology Progress NoteREPORT#:[id number] REPORT STATUS: SignedDATE:02/11/20 TIME: 1511 PATIENT: KRISTEN CAUSEY UNIT #: [id number]#: [id number] ROOM/BED: [facility]-ADOB: [birth year] AGE : 59 SEX: F ATTEND: Julio Charles [facility] DT: 01/21 AUTHOR: Sadaf Rivero MD * ALL edits or amendments must be made on the electronic/comput er document * SubjectiveChief Complaint:New onset headacheHPI:Patient's daughter present at the bedside.Patient has been off aspirin for approxi mately 2 weeks, prior to conventional cerebral angiogra m.Post angiogram, patient was recommended no surgical intervention for noted cerebral aneurysm. Object blanca GeneralVS:Last Documented: Result Date Time Pul se Ox 92 02/10 1048 B/P 126/74 02/10 1048 B/P Mean 91. 4 02/10 1048 O2 Delivery Room air 02/10 1048 Temp 98.8 0 02/10 1048 Pulse 53 02/10 1048 Resp 17 02/10 1048 Mary ent Weight Weight (lb): Weight (oz): Weight (kg): 90 .000 MedicationsCurrent Home MedicationsNIFEdipine XL (NIFEDICAL XL) 60 MG PO DAILY LABETALOL (TRANDAT E) 300 MG PO BID OMEPRAZOLE ER (PriLOSEC) 40 MG PO BELKIS Y ISOSORBIDE MONONITRATE SR (IMDUR) 60 MG PO DAILY busPIRone (BUSPAR) 10 MG PO BID RASAGILINE (AZIL ECT) 0.5 MG PO DAILY SOLIFENACIN (VESICARE) 5 MG PO D AILY DULoxetine DR (CYMBALTA) 30 MG PO DAILY POTASSIU M CHLORIDE ER (KLOR-CON M20) 20 MEQ PO BID FLUoxet ine (PROzac) 20 MG PO DAILY NITROGLYCERIN (NITROSTAT ) 0.4 MG SL Q5M PRN PRN CHEST PAIN ATORVASTATIN (LIPIT OR) 40 MG PO BEDTIME LISINOPRIL (ZESTRIL) 10 MG PO BELKIS Y METOPROLOL TARTRATE (LOPRESSOR) 25 MG PO Q12HR A SPIRIN EC (ECOTRIN) 81 MG PO DAILY RIVAROXABAN (XARELTO ) 20 MG PO DAILY Active Meds + DC'd Last 24 HrsAspirin 8 1 MG DAILY PO Potassium Chloride 60 MEQ ONCE ONE PO ( DC) Iopamidol 0 .STK-MED ONE IV (DC) Iopamidol 100 M L ONCE PRN IV Lisinopril 20 MG DAILY PO (DA) Sterile Wa ter 10 ML .STK-MED ONE IV (DC) Potassium Chloride 60 ME Q ONCE ONE PO (DC) Hydrocodone Bitart/Acetaminophen 1 T AB Q4H PRN PRN PO Cefazolin Sodium 1 GM Q8H IV Sterile Water 10 MLDuloxetine HCl 30 MG DAILY PO Enalapril Mal eate 10 MG ONCE ONE PO (DC) Atorvastatin Calcium 40 MG BEDTIME PO Topiramate 50 MG BEDTIME PO Ceftriaxone Sodiu m 1,000 MG Q24H IV (DC) Sodium Chloride 10 MLEnoxaparin Sodium 40 MG Q24H SUBQ Isosorbide Mononitrate 60 MG MARNI LY PO Lisinopril 10 MG DAILY PO (DC) Metoprolol Tartra te 25 MG Q12HR PO Pantoprazole Sodium 40 MG 0600 PO Acetaminophen 650 MG Q4H PRN PRN PO Metocloprami de HCl 10 MG Q6H PRN PRN IV Physical ExamGeneral appear ance: alert, awake, no acute distressHead/Eyes: atraum atic, clear cornea, normocephalicENT: moist mucosal membranesNeck: full range of motion, supple/no meningismus, no masses or swellingCardiovascular : regular rate and rhythmRespiratory: aerating wel l, no distressExtremities: moves all, pulses presentMusculoskeletal: full range of motionNeur o/SLOT FLOOR ATTENDANT: alert, oriented X 4, normal speech, EOMI, PERRL, CN II-XII intact, reflexes equal bilat, normal refl exes, no motor deficits, no sensory deficits, no cereb ellar deficits, normal gait Diagnosis, Assessment Plan Free Text A P:1. Multifocal ischemic infarct, anterio r and posterior circulation: Suspect postprocedural, f rom cerebral angiogram.2. New daily persistent heada ches3. Depression4. Hypertension5. Atrial fibrillation6 . Hyperlipidemia7. Unruptured cerebral aneurysm Plan:Patient's headaches are currently better wi th symptomatic treatment.Start topiramate 50 mg at bedtime for prevention of headaches.No further neurologi florence work-up is indicated at this point.Outpatient ne urology office follow-up in 2 weeks.[facility] No new focal findings on my exam, headache resolving. New onset status migrainosus is most likely the diagnosis, however given onset of the headac he 1 day following conventional angiogram, suggest to obtain MRI brain without contrast. CTA head was ordered . If negative, can be discharged from neuro standpoin t.02/10: Exam remains stable, reviewed MRI brain without contrast findings which explains acute vision lo ss, and headache.CT angiogram of the head: Noted 4 mm ba silar tip aneurysm, M1/M2 left MCA aneurysm. Suggest follow-up with neurosurgery at the [facility].Plan:1. CT angiogram of the neck, if ne gative patient can be discharged on aspirin and statin. 2. Echocardiogram, findings reviewed. Within normal limits. No PFO.Explained the diagnosis in detail to patient's family and patient. Electronically Sig radha by Sadaf Rivero MD on 02/11/20 at 1515 RPT #:[id number] OF REPORTPRProgress [id number]:11:00V.[id number] lable for patient [id number]:16:0 9 2020-02-11 [id number]:11:00 [facility] 15:11:[address] [facility] ([facility])Neurology Progress NoteREPORT#:[id number] REPORT STATUS: SignedDATE:02/11/20 TIME: 151 PATIENT: KRISTEN CAUSEY UNIT #: [id number]#: [id number] ROOM/BED: 2065-ADOB: [birth year] AGE : 59 SEX: F ATTEND: Julio Charles [facility] DT: 01/21 AUTHOR: Sadaf Rivero MD * ALL edits or amendments must be made on the electronic/comput er document * See AddendumSubjectiveChief Complaint:New onset headacheHPI:Patient's daught er present at the bedside.Patient has been off aspi rin for approximately 2 weeks, prior to conventional cer ebral angiogram.Post angiogram, patient was recommende d no surgical intervention for noted cerebral aneurys m. Objective GeneralVS:Last Documented: Result Date Time Pulse Ox 92 02/10 1048 B/P 126/74 02/10 1048 B/P Mean 91.4 02/10 1048 O2 Delivery Room air 02/10 1048 Temp 98.8 02/10 1048 Pulse 53 02/10 1048 Resp 17 01/21 2 1048 Patient Weight Weight (lb): Weight (oz): Weight (kg): 90.000 MedicationsCurrent Home MedicationsNIFEdi pine XL (NIFEDICAL XL) 60 MG PO DAILY LABETALOL (TRANDAT E) 300 MG PO BID OMEPRAZOLE ER (PriLOSEC) 40 MG PO BELKIS Y ISOSORBIDE MONONITRATE SR (IMDUR) 60 MG PO DAILY busPIRone (BUSPAR) 10 MG PO BID RASAGILINE (AZIL ECT) 0.5 MG PO DAILY SOLIFENACIN (VESICARE) 5 MG PO D AILY DULoxetine DR (CYMBALTA) 30 MG PO DAILY POTASSIU M CHLORIDE ER (KLOR-CON M20) 20 MEQ PO BID FLUoxet ine (PROzac) 20 MG PO DAILY NITROGLYCERIN (NITROSTAT ) 0.4 MG SL Q5M PRN PRN CHEST PAIN ATORVASTATIN (LIPIT OR) 40 MG PO BEDTIME LISINOPRIL (ZESTRIL) 10 MG PO BELKIS Y METOPROLOL TARTRATE (LOPRESSOR) 25 MG PO Q12HR A SPIRIN EC (ECOTRIN) 81 MG PO DAILY RIVAROXABAN (XARELTO ) 20 MG PO DAILY Active Meds + DC'd Last 24 HrsAspirin 8 1 MG DAILY PO Potassium Chloride 60 MEQ ONCE ONE PO ( DC) Iopamidol 0 .STK-MED ONE IV (DC) Iopamidol 100 M L ONCE PRN IV Lisinopril 20 MG DAILY PO (DA) Sterile Wa ter 10 ML .STK-MED ONE IV (DC) Potassium Chloride 60 ME Q ONCE ONE PO (DC) Hydrocodone Bitart/Acetaminophen 1 T AB Q4H PRN PRN PO Cefazolin Sodium 1 GM Q8H IV Sterile Water 10 MLDuloxetine HCl 30 MG DAILY PO Enalapril Mal eate 10 MG ONCE ONE PO (DC) Atorvastatin Calcium 40 MG B EDTIME PO Topiramate 50 MG BEDTIME PO Ceftriaxone Sodiu m 1,000 MG Q24H IV (DC) Sodium Chloride 10 MLEnoxaparin Sodium 40 MG Q24H SUBQ Isosorbide Mononitrate 60 MG MARNI LY PO Lisinopril 10 MG DAILY PO (DC) Metoprolol Tartra te 25 MG Q12HR PO Pantoprazole Sodium 40 MG 0600 PO Acetaminophen 650 MG Q4H PRN PRN PO Metocloprami de HCl 10 MG Q6H PRN PRN IV Physical ExamGeneral appear ance: alert, awake, no acute distressHead/Eyes: atraum atic, clear cornea, normocephalicENT: moist mucosal membranesNeck: full range of motion, supple/no meningismus, no masses or swellingCardiovascular : regular rate and rhythmRespiratory: aerating wel l, no distressExtremities: moves all, pulses presentMusculoskeletal: full range of motionNeur o/SLOT FLOOR ATTENDANT: alert, oriented X 4, normal speech, EOMI, PERRL, CN II-XII intact, reflexes equal bilat, normal refl exes, no motor deficits, no sensory deficits, no cereb ellar deficits, normal gait Diagnosis, Assessment Plan Free Text A P:1. Multifocal ischemic infarct, anterio r and posterior circulation: Suspect postprocedural, f rom cerebral angiogram.2. New daily persistent heada ches3. Depression4. Hypertension5. Atrial fibrillation6 . Hyperlipidemia7. Unruptured cerebral aneurysm Plan:Patient's headaches are currently better wi th symptomatic treatment.Start topiramate 50 mg at bedtime for prevention of headaches.No further neurologi florence work-up is indicated at this point.Outpatient ne urology office follow-up in 2 weeks.[facility] No new focal findings on my exam, headache resolving. New onset status migrainosus is most likely the diagnosis, however given onset of the headac he 1 day following conventional angiogram, suggest to obtain MRI brain without contrast. CTA head was ordered . If negative, can be discharged from neuro standpoin t.02/10: Exam remains stable, reviewed MRI brain without contrast findings which explains acute vision lo ss, and headache.CT angiogram of the head: Noted 4 mm ba silar tip aneurysm, M1/M2 left MCA aneurysm. Suggest follow-up with neurosurgery at the point of [facility].Plan:1. CT angiogram of the neck, if ne gative patient can be discharged on aspirin and statin. 2. Echocardiogram, findings reviewed. Within normal limits. No PFO.Explained the diagnosis in detail to patient's family and patient. Electronically Sig radha by Sadaf Rivero MD on 02/11/20 at 1515 Adde ndum 1: 02/12/20 1020 by Sadaf Rivero MD Addendu m: History of atrial fibrillation, reason for not b eing on anticoagulants need to be further transformed. E mbolic burden of the stroke as suspected could be postprocedural, can also be secondary to cardioe mbolic and not being on anticoagulants.Discussed with p rimary team. If no strong contraindication for anticoag ulants, patient to benefit from treatment for A. fib. at 1022 RPT #:[id number] OF REPORTPRProgress [id number]:11:00V.[id number] lable for patient [id number]:22:2 5 2020-02-11 [id number]:31:00 [facility] 10:31:[address] [facility] ([facility])Hospitalist Progress NoteREPORT#:[id number] REPORT STATUS: SignedDATE:02/11/20 TIME: 1031 PATIENT: KRISTEN CAUSEY UNIT #: [id number]#: [id number] ROOM/BED: [facility]-ADOB: [birth year] AGE : 59 SEX: F ATTEND: Julio Charles [facility] DT: 01/21 AUTHOR: Ashley Cantu MD * ALL edits or amendm ents must be made on the electronic/computer document * SubjectiveChief Complaint:Patient seen and exami radha at bedside. Continues to have a headache, controlle d with medication. Review of SystemsNeuro:Reports: head ache (improving). All systems rev neg: except as to ed Objective GeneralVS/I O:Vital Signs: Date Time T emp Pulse Resp B/P B/P Pulse O2 O2 Flow FiO2 Mean Ox Delivery Rate 02/10 0729 98.8 90 17 143/85 104.1 95 Room air 02/10 0351 98.1 59 18 135/69 91.0 92 2332 99.7 66 20 171/87 115.2 91 02/09 1956 98.8 71 18 176/80 112.0 94 24 hour I O ending at 0700: 01/21 2 0700 02/09 1900 Intake Total 100 Output Total Balanc e 100 Intake, Oral 100 Number Voids 2 Patient Weight W eight (lb): Weight (oz): Weight (kg): 90.000 Medications:Active Meds + DC'd Last 24 HrsPotass ium Chloride 60 MEQ ONCE ONE PO (CKD) Iopamidol 100 ML ONCE PRN IV Lisinopril 20 MG DAILY PO Sterile Water 10 ML .STK-MED ONE IV (DC) Potassium Chloride 60 MEQ O NCE ONE PO (DC) Hydrocodone Bitart/Acetaminophen 1 TAB Q 4H PRN PRN PO Cefazolin Sodium 1 GM Q8H IV Sterile Vangie er 10 MLDuloxetine HCl 30 MG DAILY PO Enalapril Maleat e 10 MG ONCE ONE PO (DC) Iopamidol 0 .STK-MED ONE .ROUTE (DC) Atorvastatin Calcium 40 MG BEDTIME PO Topiramate 50 MG BEDTIME PO Ceftriaxone Sodium 1,000 MG Q24H IV ( DC) Sodium Chloride 10 MLEnoxaparin Sodium 40 MG Q24 H SUBQ Isosorbide Mononitrate 60 MG DAILY PO Lisinopril 10 MG DAILY PO (DC) Metoprolol Tartrate 25 MG Q12HR PO Pantoprazole Sodium 40 MG 0600 PO Acetaminophen 650 MG Q4H PRN PRN PO Metoclopramide HCl 10 MG Q6H PRN PRN IV Physical ExamGeneral appearance: alert, awakeHea d/Eyes: atraumatic, EOMI, normocephalic, PERRLENT: moist mucosal membranes, normal pharynx, normal sinusN naman: full range of motion, non-tender, supple/no meningismusCardiovascular: normal capillary refi ll, normal heart sounds, regular rate rhythmRespirat ory: aerating well, clear to auscultation, no distressAbdomen: non-tender, normal bowel sounds , soft, no distentionExtremities: moves all, no calf tenderness, no edemaMusculoskeletal: normal insp ection, painless range of motionNeuro/SLOT FLOOR ATTENDANT: alert, CNII-X II intact, normal speech, no motor deficits, no sen paula deficitsConsidered stroke alert: noSkin: dry, intactPsychiatry: normal affect, normal mood, no hallucinations ResultsFindings/Data:Laboratory T 02/10 0449 0449 Chemistry Sodium (136 - 14 5 mmol/L) 143 Potassium (3.5 - 5.1 mmol/L) 2.8 *L Chloride (98 - 107 mmol/L) 108.0 H Carbon Dioxid e (21 - 32 mmol/L) 30.0 Anion Gap (10 - 20) 7.8 L BUN (7 - 18 mg/dL) 8 Creatinine (0.55 - 1.02 mg/dL) 0.50 L Glomerular Filtr Rate (>=60 mL/min) > 60 BUN/Cre atinine Ratio (10 - 20) 16.0 Glucose (74 - 106 mg/dL) 97 Calcium (8.5 - 10.1 mg/dL) 8.9 Phosphorus (2.5 - 4.9 mg/dL) 3.7 Magnesium (1.8 - 2.4 mg/dL) 1.8 Labor atory Tests 02/10 0449 Hematology WBC (4.5 - 12.5 K/m m3) 7.4 RBC (3.7 - 5.2 mill/mm3) 3.70 Hgb (11.5 - 15.5 g waqas/dL) 9.2 L Hct (36.0 - 46.0 %) 29.4 L MCV (80 - 98 fL ) 79.5 L MCH (27.0 - 33.0 picogram) 24.9 L MCHC (33.0 - 36.0 gram/dL) 31.3 L RDW (11.6 - 16.2 %) 14.[address] Deviation (37.0 - 51.0 fL) 40.7 Plt Count (150 - 450 K/mm3) 277 MPV (6.7 - 11.0 fL) 10.4 Neut % (Aut o) (39.0 - 69.0 %) 62.6 Lymph % (Auto) (25.0 - 55.0 %) 26.8 [place] % (Auto) (0.0 - 10.0 %) 6.7 Eos % (Au to) (0.0 - 5.0 %) 3.3 Baso % (Auto) (0.0 - 1.0 %) 0. 3 Neut # (Auto) (1.8 - 7.7 K/mm3) 4.62 Lymph # (Auto) (1.0 - 5.0 K/mm3) 1.97 [place] # (Auto) (0 - 0.8 K/mm3) 0. 49 Eos # (Auto) (0.0 - 0.5 K/mm3) 0.24 Baso # (Auto) ( 0.0 - 0.2 K/mm3) 0.02 Add Manual Diff NO Nucleated RBC % (0 - 0 %) 0.0 Nucleated RBCs # (Man) (0.0 - 0.1 K/mm 3) 0.00 Radiology data:Recent Impressions:CAT SCAN - CTA HEAD 02/09 1400 Report Impression - Status: SIGNED Entered: 02/10/2020 5184 IMPRESSION: Stable basi lar artery tip aneurysm projecting towards the right andposteriorly measuring 4 mm and M1/M2 junction left MCA aneurysmmeasuring 3.6 mm projecting anterior ly and towards the right.Impression By: [email or web address] - Cayden Rangel M.D. Diagnosis, Assessment Plan Free Yordan t DxA P NotesFree text DxA P notes:57-year-old woman wit h h/o hypertension, HLD, recently dx migraines, cerebr al aneurysm dx about 2 yr ago, depression, chronic hypokalemia presents with suddenonset headache accompanied with dizziness, blurry vision, nause a. #Acute stroke-MRI of the brain demonstrated. Betsy ology of headache?-CTA head with a stable aneurysm.-We will initiate secondary prevention of stroke includin g statin, aspirin.-We will liberalize blood pressu re control unless otherwise recommended by neurologist.-PT/OT.-Echo with bubble study demon strated no shunt. #Headache, likely 2/2 migraine, r/o st roke, history of cerebral aneurysm -CT Head neg acute -neuro exam nonfocal, history suggestive of migraine he adache -trial of migraine cocktail improved the headach e -upon dc continue home topamax # Hypokalemia, chronic -chronic problem for about 10 years per the daug hter. patient just recently established care at [facility] and will be following with clerk of scales. she ju es daily K supplements at home-K 2.7 on admission, 3.2 today -- replace with po KCl-denies any diarrhea , vomiting, decreased po intake -upon discharge, r esume home KCl supplements and f/u with clerk of scales - Check urine potassium. Will need outpatient follow-up. #UTI-urine culture with pansensitive E. coli.-Co ntinue IV antibiotics. # HTN -liberalize blood pressure control given acute stroke. # HLD-statin ?Mishel sons disease-being evaluated by a neurologist, not on any meds ?A-Fib-per daughter this was a one time epi sode during a prior admission. pt wasbriefly placed o n xarelto, which was then discontinued after a mon th -continue home BB -Given new stroke, may need to be initiated back on Xarelto.-Continue telemonitoring.#Depression-cont home cymbalta # Obesity -BMI 36.3 # Alcohol use-ETOH leval 4 -Counselled for cessation. # DVT ppx : SCD's # Full Code. Spoke with daughter at [phone] and updated on her pt's condition, plan of care. all questions answered. Daughter says patient just recently got goldcard and establishing care at [facility]. she will fol low with PCP, neurologist, inspector boiler, and renal c linics at [facility]. Dispo: Pending diagnostic work -up and clinical improvement. Quality BMI Screening > 25 or < 18.5BMI status/follow-up: abnl BMI, pt to F/U w/ PCP Tobacco Use/CounselingTobacco use/counseling: no n tobacco user HTN Screening/Follow-upB/P assess/follow-up: pre-existing hx of HTN Electro nically Signed by Ashley Cantu MD on 02/11/20 at 1249 RPT #:[id number] OF REPORTPRProgress [id number]:31:00V.[id number] lable for patient [id number]:50:0 6 2020-02-11 [id number] [facility] 09:45:00 [facility] PATIENT NAME: KRISTEN CAUSEY ADMIT DATE: 02/09/20ACCOUNT NO: [id number] ROOM NO: V.[facility] AGE: 59 REPORT TYPE: eECHOCARDIOGRAM REPORT SEX: F DATE OF : 56ADMITTING PHYSICIA N:Julio Charles MD ATTENDING PHYSICIAN:Julio Charles MD *[facility]*[phone] [phone] Transthoracic Echocardiogram Patient: Mague Causey Date: 02/10/2020 BP: Location: [facility]: [id number] [facility] ount#: [id number]: 1960 Age: 59 Height: 62 i n / 157.5 cmAccession#: [id number] Gender: Brock Holt ght: 197.6 lb / 89.8 kgBMI/BSA: 36.2 kg/m 2 / 1.9 m 2 *Ordering Physician: * Titus Xiao *Interpr eting Physician: * Bar Carl MD*Line Painting Machine Operator: Selena Paz [facility] ------- Indications: HEADACHE AND BLURR Y VISION. ------- Study data: Transthoracic echocardiogram. Complete 2D, completespectral Do ppler, and color Doppler. Location: Emergency department.Patient status: Observation. Patient room number: 9. Study status:Routine. ------- Findings Left ventricle: The ca vity size is normal. Wall thickness is mildlyincrease d. Systolic function is normal. The estimated eject ion fractionis 55-60%.Right ventricle: The cavity si ze is normal. Systolic function isnormal.Left atrium: The atrium is normal in size.Right atrium: The atriu m is normal in size. PATIENT NAME: SOLEDAD CAUSEY Atrial septum: Echo cont rast study shows no shunt.Aorta: Aortic root: The aor tic root is normal in size.Aortic valve: The valve i s trileaflet. Thickening, consistent withsclerosis . There is no evidence of stenosis. There is trivialregurgitation.Mitral valve: The valve is structurally normal. There is noevidence of sten osis. There is trivial regurgitation.Tricuspid valve: The valve is structurally normal. There is trivialregurgitation.Pulmonic valve: The valve i s structurally normal. There is noregurgitation.Pericardium: There is no pericar dial effusion.Pulmonary arteries:The main pulmonary a rtery is normal-sized.Systemic veins:Inferior vena cav a: The vessel is normal in size. ------- Measurements Left ventricle Va lue Ref Aortic valve continued Value Ref DANITA, LAX 4.0 cm 3.8 - 5.2 Mean grad, S 11.2 mm Hg ----- ESD, LAX 2.9 cm 2.2 - 3.5 Peak grad, S 21.5 mm Hg ----- ESD/bsa, LAX 1.5 cm/m 2 1.3 - 2.1 LVOT/AV, VTI ratio 0.64 ----- F S, LAX 27 % 27 - 45 ANTOINE, VTI 1.94 cm 2 ----- PW, ED 1.2 cm 0.6 - 0.9 LVOT/AV, Vpeak ratio 0.59 ----- IVS/PW, ED 0.96 --------- ANTOINE, Vmax 1.77 cm 2 ----- EF 54 % 54 - 74 E', lat nicolas, TDI 9.9 cm/sec >=10.0 Mitral valve Valu e Ref E/e', lat nicolas, 12 --------- E-septal separation 1.0 cm ----- TDI E-F slope 0.07 m/sec ----- E', med an n, TDI 6.8 cm/sec >=7.0 Peak E 1.15 m/sec ----- E/e', m ed nicolas, 17 --------- Peak A 0.73 m/sec ----- TDI Mean v , D 0.75 m/sec ----- E', avg, TDI 8.3 cm/sec ------- -- VTI leaflet coapt 46.3 cm ----- E/e', avg, TDI 14 <= 14 Decel time 242 ms ----- PHT 129 ms ----- LVOT V alue Ref Mean grad, D PATIENT NAME: SOO CAUSEY CE 2.6 mm Hg ----- Diam, S 1.96 cm --------- Peak grad, D 6.5 mm Hg ----- Area 3.0 cm 2 --------- Peak E/A ratio 1.58 ----- Peak paty, S 1.37 m/sec --------- MVA, PHT 1.7 cm 2 ----- Mean paty , S 0.94 m/sec --------- VTI, S 31.0 cm --------- Pu lmonic valve Value Ref Peak grad, S 7 mm Hg --------- P R v, ED 1.81 m/sec ----- Mean grad, S 4 mm Hg --------- AK grad, ED 13 mm Hg ----- SV 94 ml --------- Qs 1 6.95 L/min --------- Tricuspid valve Value Ref Qs/bsa 8.9 L/(min-m 2) --------- TR peak v 3.3 m/sec <=2.8 SV/bsa 49 ml/m 2 --------- Peak RV-RA grad, S 43 mm Hg ----- Ventricular septum Value Ref Aortic root Value R ef IVS, ED 1.2 cm 0.6 - 0.9 Root diam, ED MM 2.36 cm --- -- Right ventricle Value Ref Ascending aorta Value Ref DANITA, LAX 3.4 cm --------- AAo AP diam, S 3.7 cm ----- Pressure, S 51 mm Hg --------- AAo AP diam/bsa, S 2.0 cm/m 2 ----- Left atrium Value Ref Pulmonary art philly Value Ref AP dim, ES 3.69 cm 2.70 - Pressure, S 43.9 mm Hg ----- 3.80 AP dim, ES MM 3.3 cm 2.7 - 3.8 Inferior vena cava Value Ref LA/Ao root 1.41 --- ------ Diam 2.4 cm ----- ratio, MM Systemic veins Value Ref Aortic valve Value Ref Estimated CVP 8 mm Hg --- -- Leaflet sep, MM 1.28 cm --------- Peak v, S 2.32 m/sec --------- Mean v, S 1.58 m/sec --------- VTI, S 48.2 cm --------- ------- PATIENT NAME: BRADY CAUSEY ICE Conclusions Summary: 1. Left ventricle: The cavity size is normal. Wall thick ness is mildly increased. Systolic function is normal. T he estimated ejection fraction is 55-60%.2. Atrial septum: Echo contrast study shows no shunt.3. Aortic fernando ve: Thickening, consistent with sclerosis. Prepared and electronically signed by Bar Calr MD02/10 09:45 at 0945 PATIENT NAME: KIRSTEN CAUSEY :45: 00V.CPS [id number] for patient [id number]:45:56 2020-02-10 [id number]:35:00 [facility] 14:35:00 [facility] ([facility])Hospitalist Progress NoteREPORT#:[id number] REPORT STATUS: SignedDATE:02/10/20 TIME: 1435 PATIENT: KRISTEN CAUSEY UNIT #: [id number]#: [id number] [address] [birth year] A GE: 59 SEX: F ATTEND: Julio Charles DT: 01/21 AUTHOR: Julio Charles MD * ALL edits or roxanna ndments must be made on the electronic/computer document * Subjective Free Text Subj NotesFree Subj Notes:danny hartley is improving, denies nausea, dizziness, blurry v ision at this time. Review of SystemsNeuro:Reports: he conor (improving). All systems rev neg: except as to ed Objective GeneralVS/I O:Vital Signs: Date Time T emp Pulse Resp B/P B/P Pulse O2 O2 Flow FiO2 Mean Ox Delivery Rate 02/09 0913 65 18 144/70 94 100 Braden al cannula 02/09 0829 63 18 151/66 94 96 Room air 0 02/09 0633 98.3 59 16 138/67 90 100 Room air 02/09 020 0 53 16 152/79 103 100 Room air 02/09 0032 98.5 59 15 12 5/76 92 100 Room air 02/08 2000 98.2 54 16 122/64 83 100 Room air 02/08 1633 56 15 142/68 92 100 Patient Weigh t Weight (lb): Weight (oz): Weight (kg): 90.000 Medications:Active Meds + DC'd Last 24 HrsIopami dol 0 .STK-MED ONE .ROUTE (DC) Potassium Chloride 40 M EQ ONCE ONE PO (DC) Atorvastatin Calcium 40 MG BEDTIME P O Topiramate 50 MG BEDTIME PO Ceftriaxone Sodium 1 ,000 MG Q24H IV Sodium Chloride 10 MLDiphenhydramine HCl 12.5 MG ONCE ONE IV (DC) Enoxaparin Sodium 40 MG Q24H SUBQ Ketorolac Tromethamine 30 MG ONCE ONE IV (DC) Metoclopramide HCl 10 MG ONCE ONE IV (DC) Isosor bide Mononitrate 60 MG DAILY PO Lisinopril 10 MG BELKIS Y PO Metoprolol Tartrate 25 MG Q12HR PO Pantoprazole Sodium 40 MG 0600 PO Acetaminophen 650 MG Q4H PRN PRN P O Metoclopramide HCl 10 MG Q6H PRN PRN IV Physical ExamGeneral appearance: alert, awake, no acute distress, no respiratory distressHead/Eyes: atra umatic, EOMI, normocephalic, PERRLENT: moist mucosal mem branes, normal pharynx, normal sinusNeck: full range of motion, non-tender, supple/no meningismusCardiovascular: normal capillary refill, normal heart sounds, regular r ate rhythmRespiratory: aerating well, clear to auscultation, no distressAbdomen: non-tender, no rmal bowel sounds, soft, no distentionExtremities: mo ves all, no calf tenderness, no edemaMusculoskeletal : normal inspection, painless range of motionNeuro /SLOT FLOOR ATTENDANT: alert, CNII-XII intact, normal speech, no motor deficits, no sensory deficitsPsychiatry: normal affect, normal mood, no hallucinations ResultsFindings/Data:Laboratory Tests 02/09 070 1 Chemistry Sodium (136 - 145 mmol/L) 144 Potassi um (3.5 - 5.1 mmol/L) 3.2 L Chloride (98 - 107 mmol/L) 1 10.0 H Carbon Dioxide (21 - 32 mmol/L) 32.0 Anion Gap ( 10 - 20) 5.2 L BUN (7 - 18 mg/dL) 20 H Creatinine (0. 55 - 1.02 mg/dL) 0.50 L Glomerular Filtr Rate (>=60 m L/min) > 60 BUN/Creatinine Ratio (10 - 20) 42.8 H Gluco se (74 - 106 mg/dL) 94 Calcium (8.5 - 10.1 mg/dL) 9.0 Phosphorus (2.5 - 4.9 mg/dL) 3.3 Magnesium (1.8 - 2.4 mg/dL) 2.2 Laboratory Tests 02/09 0701 Hematolo gy WBC (4.5 - 12.5 K/mm3) 6.0 RBC (3.7 - 5.2 mill/mm3) 3.81 Hgb (11.5 - 15.5 gram/dL) 9.3 L Hct (36.0 - 46.0 %) 30.8 L MCV (80 - 98 fL) 80.8 MCH (27.0 - 33.0 picogram) 24.4 L MCHC (33.0 - 36.0 gram/dL) 30.2 L RDW (11.6 - 16.2 %) 14.3 RDW Std Deviation (37.0 - 5 1.0 fL) 42.3 Plt Count (150 - 450 K/mm3) 271 MPV (6.7 - 11.0 fL) 10.1 Neut % (Auto) (39.0 - 69.0 %) 65.9 Lymp h % (Auto) (25.0 - 55.0 %) 23.6 L [place] % (Auto) (0. 0 - 10.0 %) 6.6 Eos % (Auto) (0.0 - 5.0 %) 3.3 Baso % (Auto) (0.0 - 1.0 %) 0.3 Neut # (Auto) (1.8 - 7 .7 K/mm3) 3.96 Lymph # (Auto) (1.0 - 5.0 K/mm3) 1.4 2 [place] # (Auto) (0 - 0.8 K/mm3) 0.40 Eos # (Auto) (0.0 - 0.5 K/mm3) 0.20 Baso # (Auto) (0.0 - 0.2 K/mm3) 0.02 Nucleated RBC % (0 - 0 %) 0.0 Nucleated RBCs # (Man) (0.0 - 0.1 K/mm3) 0.00 Diagnosis, Assessment Zach n Free Text DxA P NotesFree text DxA P notes:57-year-ol d woman with h/o hypertension, HLD, recently dx migraine s, cerebral aneurysm dx about 2 yr ago, depression, chronic hypokalemia presents with suddenonset he adache accompanied with dizziness, blurry vision, nause a. Headache, likely 2/2 migraine , r/o stroke , his tory of cerebral aneurysm -CT Head neg acute -neuro exam nonfocal, history suggestive of migraine headach e -neurology consulted, rec topamax -pt with h/o c erebral aneurysm for about 2 years, had recent conventio nal cerebral angiogram at as part of work up. giv en severe headache with neurologic symptoms followi ng recent angiogram, neurology recommend further im aging to r/o stroke, pending CTA head and MRI brain wi thout contrast ---if imaging negative , pt clear for discharge -trial of migraine cocktail improved t he headache -upon dc continue home topamax # Hyp[place] lemia, chronic -chronic problem for about 10 years per the daughter. patient just recently established care at [facility] and will be following with nephrol ogist. she takes daily K supplements at home-K 2.7 on admission, 3.2 today -- replace with po KCl-latosha es any diarrhea, vomiting, decreased po intake -upon discharge, resume home KCl supplements and f/u w [facility] clerk of scales UTI-rocephin pending urine cx # HTN -home meds: labetalol 300 bid, losartan 25 daily-curre ntly on lisinopril, imdur, metoprolol -- cont to titrate # HLD-statin ?Parkinsons disease-being evaluated b y a neurologist, not on any meds ?A-Fib-per daughter this was a one time episode during a prior admission. pt was briefly placed on xarelto, which was then discon tinued after a month -continue home BB Depression-cont home cymbalta # Obesity -BMI 36.3 # Alcohol use-ETOH leval 4 -Counselled for cessation. # DVT ppx : SCD's # F ull Code. Spoke with daughter at [phone] and up dated on her pt's condition, plan of care. all questio ns answered. Daughter says patient just recently go t goldcard and establishing care at [facility]. she will follow with PCP, neurologist, inspector boiler, and renal clinics at [facility]. Dispo: dc if MRI brain and CTA head negative at 1526 RPT #:[id number] OF REPORTPRProgress [id number]:35:00V.[id number] lable for patient [id number]:26:4 6 2020-02-10 [id number]:57:00 [facility]00 [facility] ([facility])Neurology Progress NoteREPORT#:[id number] REPORT STATUS: SignedDATE:02/10/20 TIME: 1157 PATIENT: KRISTEN CAUSEY UNIT #: [id number]#: [id number] [address] [birth year] A GE: 59 SEX: F ATTEND: Jluio Charles [facility] DT: 01/21 AUTHOR: Sadaf Rivero MD * ALL edits or amendments must be made on the electronic/comput er document * SubjectiveChief Complaint:New onset headacheHPI:Improving headache, no recurrence of vision symptoms since admission.Note that patient under went conventional cerebral angiogram for evaluation o f known cerebral aneurysm 1 day prior to onset of curren t symptoms. Patient describes persistent near visi on loss, bilateral, approximately for 1 to 2 hoursp rior to completely resolving at the time of admission. Objective GeneralVS:Last Documented: Result Date Time Pulse Ox 100 02/09 913 B/P 144/70 02/09 913 B /P Mean 94 02/09 913 O2 Delivery Nasal cannula 02/09 Pulse 65 02/09 913 Resp 18 02/09 913 Temp 98. 3 02/09 633 Patient Weight Weight (lb): Weight (oz): We ight (kg): 90.000 MedicationsCurrent Home MedicationsNIFEdipine XL (NIFEDICAL XL) 60 MG PO DAILY LABETALOL (TRANDATE) 300 MG PO BID OMEPRAZOLE ER (PriLOSEC) 40 MG PO DAILY ISOSORBIDE MONONITRATE SR (IMDUR) 60 MG PO DAILY busPIRone (BUSPAR) 10 MG PO BID RASAGILINE (AZILECT) 0.5 MG PO DAILY SOLIFENACIN (VESICARE) 5 MG PO DAILY DULoxetine DR (CYMBALTA ) 30 MG PO DAILY POTASSIUM CHLORIDE ER (KLOR-CON M20) 20 MEQ PO BID FLUoxetine (PROzac) 20 MG PO DAILY NITROGLYC JULIETA (NITROSTAT) 0.4 MG SL Q5M PRN PRN CHEST PAIN ATORVASTATIN (LIPITOR) 40 MG PO BEDTIME LISINOPR IL (ZESTRIL) 10 MG PO DAILY METOPROLOL TARTRATE (LOPRESSOR) 25 MG PO Q12HR ASPIRIN EC (ECOTRIN) 81 MG PO DAILY RIVAROXABAN (XARELTO) 20 MG PO DAILY Ac tive Meds + DC'd Last 24 HrsPotassium Chloride 40 MEQ ONCE ONE PO (DC) Atorvastatin Calcium 40 MG BEDTIME P O Topiramate 50 MG BEDTIME PO Ceftriaxone Sodium 1 ,000 MG Q24H IV Sodium Chloride 10 MLDiphenhydramine HCl 12.5 MG ONCE ONE IV (DC) Enoxaparin Sodium 40 MG Q24H SUBQ Ketorolac Tromethamine 30 MG ONCE ONE IV (DC) Metoclopramide HCl 10 MG ONCE ONE IV (DC) Isosor bide Mononitrate 60 MG DAILY PO Lisinopril 10 MG BELKIS Y PO Metoprolol Tartrate 25 MG Q12HR PO Pantoprazole Sodium 40 MG 0600 PO Potassium Chloride/Water 100 ML Q2 H IV (DC) Acetaminophen 650 MG Q4H PRN PRN PO Metoclo pramide HCl 10 MG Q6H PRN PRN IV Physical ExamGeneral appearance: alert, awake, no acute distressHead/ Eyes: atraumatic, clear cornea, normocephalicENT: mois t mucosal membranesNeck: full range of motion, sup ple/no meningismus, no masses or swellingCardiovascular : regular rate and rhythmRespiratory: aerating wel l, no distressExtremities: moves all, pulses presentMusculoskeletal: full range of motionNeur o/SLOT FLOOR ATTENDANT: alert, oriented X 4, normal speech, EOMI, PERRL, CN II-XII intact, reflexes equal bilat, normal refl exes, no motor deficits, no sensory deficits, no cereb ellar deficits, normal gait Diagnosis, Assessment Plan Free Text A P:1. Headaches with migrainous features2. New daily persistent headaches3. Depression4. Hypertension5. Atrial fibrillation6. Hyperlipide chichi Plan:Patient's headaches are currently better wi th symptomatic treatment.Start topiramate 50 mg at bedtime for prevention of headaches.No further neurologi florence work-up is indicated at this point.Outpatient ne urology office follow-up in 2 weeks.Discussed with the p atient. 02/09: No new focal findings on my exam, headache resolving. New onset status migrainosus is most likely the diagnosis, however given onset of the headac he 1 day following conventional angiogram, suggest to obtain MRI brain without contrast. CTA head was ordered . If negative, can be discharged from neuro [facility]. at 1204 RPT #:[id number] OF REPORTPRProgress [id number]:57:00V.[id number] lable for patient [id number]:05:0 1 2020-02-09 [id number]:33:00 [facility] 16:33:[address] [facility] ([facility])Hospitalist Progress NoteREPORT#:[id number] REPORT STATUS: SignedDATE:02/09/20 TIME: 1633 PATIENT: KRISTEN CAUSEY UNIT #: [id number]#: [id number] [address] 56 [address] GE: 59 SEX: F ATT[facility]: 01/21 AUTHOR: Julio Charles MD * ALL edits or roxanna ndments must be made on the electronic/computer document * Subjective Free Text Subj NotesFree Subj Notes:s till with bifrontal headache 11/28, no nausea, dizzine ss, vision changes at thistime. no cp, sob, palpitat ions or any other symptoms. Review of SystemsNeuro:Repor ts: headache. All systems rev neg: except as marked Objective GeneralVS/I O:Vital Signs: Date Time T emp Pulse Resp B/P B/P Pulse O2 O2 Flow FiO2 Mean Ox Delivery Rate 02/08 1633 56 15 142/68 92 100 1244 98.4 64 15 174/84 114 100 02/08 0816 98.1 62 16 170/80 110 100 Room air 02/08 0648 98.3 54 18 177/81 11 3 100 Room air 02/08 0301 98.7 59 18 154/62 92 97 Room air 02/07 2243 98.0 60 18 165/77 106 98 Room air 1937 98.3 63 18 155/84 107 99 Room air 02/07 1928 98 02/07 1802 77 18 149/77 101 99 02/07 1657 73 18 169/81 110 100 24 hour I O ending at 0700: 02/08 0700 01/20 9 1900 Intake Total Output Total Balance Patient 90 kg Weight Weight Bed scale Measurement Method Patient Jonathong Weight (lb): Weight (oz): Weight (kg): 90.000 Medications:Active Meds + DC'd Last 24 HrsAtorva statin Calcium 40 MG BEDTIME PO Topiramate 50 MG BEDTIM E PO Isosorbide Mononitrate 60 MG DAILY PO Lisinopril 10 MG DAILY PO Metoprolol Tartrate 25 MG Q12HR PO Pota ssium Chloride 40 MEQ ONCE ONE PO (DC) Pantoprazole So dium 40 MG 0600 PO Potassium Chloride/Water 100 ML Q2H I V (DC) Atorvastatin Calcium 40 MG ONCE ONE PO (DC) Acetaminophen 650 MG Q4H PRN PRN PO Metocloprami de HCl 10 MG Q6H PRN PRN IV Sodium Chloride 1,000 ML . Q10H IV (DC) Potassium Chloride/Water 100 ML X1ED STA IV (DC) Physical ExamGeneral appearance: alert, awake, n o respiratory distress, in some distress due to he adache Head/Eyes: atraumatic, EOMI, normocephalic, PERR LENT: moist mucosal membranes, normal pharynx, normal sinusNeck: full range of motion, non-tender, sup ple/no meningismusCardiovascular: normal capillary refi ll, normal heart sounds, regular rate rhythmRespirat ory: aerating well, clear to auscultation, no distressAbdomen: non-tender, normal bowel sounds , soft, no distentionExtremities: moves all, no calf tenderness, no edemaNeuro/SLOT FLOOR ATTENDANT: alert, CNII-XII i ntact, normal speech, no motor deficits, no sensory deficitsPsychiatry: normal affect, normal mood, no hallucinations ResultsFindings/Data:Laboratory T ests 02/08 642 Chemistry Sodium (136 - 145 mmol/L) 1 46 H Potassium (3.5 - 5.1 mmol/L) 2.7 *L Chloride (98 - 107 mmol/L) 106.0 Carbon Dioxide (21 - 32 mmol/L) 3 5.0 H Anion Gap (10 - 20) 7.7 L BUN (7 - 18 mg/dL) 17 Creatinine (0.55 - 1.02 mg/dL) 0.50 L Glomerular Filtr Rate (>=60 mL/min) > 60 BUN/Creatinine Ratio (10 - 20) 32.4 H Glucose (74 - 106 mg/dL) 100 Calcium (8.5 - 10.1 mg/dL) 8.6 Triglycerides (20 - 150 mg/dL) 150 Cholesterol (0 - 200 mg/dL) 187 LDL Cholesterol Measurd (100 - 129 mg/dL) 128 HDL Cholesterol (40 - 60 m g/dL) 47 Cholesterol/HDL Ratio (0 - 4.9 RATIO) 3.0 Lab oratory Tests 02/08 642 Hematology WBC (4.5 - 12.5 K/m m3) 5.9 RBC (3.7 - 5.2 mill/mm3) 3.95 Hgb (11.5 - 15.5 gram/dL) 9.7 L Hct (36.0 - 46.0 %) 31.3 L MCV (8 0 - 98 fL) 79.2 L MCH (27.0 - 33.0 picogram) 24.6 L MC HC (33.0 - 36.0 gram/dL) 31.0 L RDW (11.6 - 16.2 %) 14.6 RDW Std Deviation (37.0 - 51.0 fL) 42.0 Plt Coun t (150 - 450 K/mm3) 277 MPV (6.7 - 11.0 fL) 10.1 Neut % (Auto) (39.0 - 69.0 %) 62.8 Lymph % (Auto) (25.0 - 55.0 %) 27.6 [place] % (Auto) (0.0 - 10.0 %) 7.3 Eos % ( Auto) (0.0 - 5.0 %) 1.7 Baso % (Auto) (0.0 - 1.0 %) 0. 3 Neut # (Auto) (1.8 - 7.7 K/mm3) 3.68 Lymph # (Auto) ( 1.0 - 5.0 K/mm3) 1.62 [place] # (Auto) (0 - 0.8 K/mm3) 0. 43 Eos # (Auto) (0.0 - 0.5 K/mm3) 0.10 Baso # (Auto) (0 .0 - 0.2 K/mm3) 0.02 Add Manual Diff NO Nucleated RBC % (0 - 0 %) 0.0 Nucleated RBCs # (Man) (0.0 - 0.1 K/mm3 ) 0.00 Laboratory Tests 02/07 2343 Toxicology Urine Op iates Screen (<300 ng/mL) NEGATIVE Urine Methadone Scr een (<300 ng/mL) NEGATIVE Urine Barbiturates (<200 n g/mL) NEGATIVE Ur Phencyclidine Scrn (<25 ng/mL) NEGAT BLANCA Ur Amphetamines Screen (<1000 ng/mL) NEGATIVE U Benzodiazepines Scrn (<200 ng/mL) NEGATIVE Urine Cocaine Screen (<300 ng/mL) NEGATIVE Urine Canna binoids (<50 ng/mL) NEGATIVE Laboratory Tests 02/07 234 3 Urines Urine Color (YELLOW) YELLOW Urine Appear ance (CLEAR) Cloudy H Urine pH (5.0 - 8.0) 6.0 Ur Spe cific [place] (1.001 - 1.035) 1.023 Urine Protein (NEG ATIVE mg/dL) 30 (1+) H Urine Glucose (UA) (NEGATIVE mg /dL) NEGATIVE Urine Ketones (NEGATIVE mg/dL) NEGATIVE Urine Blood (NEGATIVE mg/dL) 0.03 mg/dL (Trace) H Urin e Nitrite (NEGATIVE) NEGATIVE Urine Bilirubin (NEG ATIVE mg/dL) NEGATIVE Urine Urobilinogen (NEGATIVE mg/ dL) 4.0 (2+) H Ur Leukocyte Esterase (NEGATIVE Toshia/uL) 2 + H Urine RBC (0 - 5 #/HPF) 0-3 Urine WBC (0 - 5 pe r HPF) 11-20 H Ur Epithelial Cells (FEW per HPF) FEW Ur ine Bacteria (NONE #/HPF) MODERATE H Hyaline Casts ( 0 - 5 #/LPF) 3-5 Urine Mucus (FEW #/LPF) MANY H Diagno sis, Assessment Plan Free Text DxA P NotesFree text D xA P notes:57-year-old woman with h/o hypertension, H LD, A. fib /flutter, Parkinson's, migraines presents wi th sudden onset headache accompanied with dizziness , blurryvision, nausea. 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 # DVT ppx : SCD's # Full Code. Electronically Sign ed by Julio Charles MD on 02/09/20 at 1656 RPT #:[id number] OF REPORTPRProgress [id number]:33:00V.[id number] lable for patient [id number]:56:1 8 2020-02-08 [id number]:12:00 [facility] [place] [facility] 19:[facility]:[address] [facility] ([facility])Hospitalist History PhysicalREPORT#:[id number] REPORT STATUS: SignedDATE:02/08/20 TIME: 1911 PATIENT: KRISTEN CAUSEY UNIT #: [id number]#: [id number] [facility]: 59 SEX: F ATTEND: Melina Nieves [facility] AUTHOR: Titus Xiao * ALL edits or amendm ents must be made on the electronic/computer document * History of Present Illness HPIChief complaint:Te rrible headache.PCP:PCP: No Primary or Family Physician HPI:Ms. Kristen Causey is a 57-year-old fem chel. She has history of hypertension, HLD, A. fib /fl utter and history of Parkinson's. [facility], [facility] [place] and all of a sudden started with ter rible headache at 10/10, Associatedwith blurry vision so the family was concerned, hence they brought her int o the Emergency Room for evaluation. Patient's chest x -ray and CT head and brain was unremarkable. Her pota ssium is low at 2.7 and replaced in ED. recent history ofmultiple aneurysms at [facility] as per the transfer note given by ED to primary. Patients e cassandra level is elevated and at 4 today. Denies Smoking but drinks alcohol ocasionally and denies any drinks . HistoryPast medical history:Reports: Atrial fib/flutter, Depression/mood disorder, Hypertens ion, Dyslipidemia. Additional medical history:parkinson'sPast surgical history:Reports : Bilateral tubal ligation. Additional surgical history:c2 fusionFamily history:Reports: Cancer (father), Heart disease (mother), Stroke/TIA. Al cohol use: Denies EtOH useDrug use: Denies recreationa l drugsSmoking status for patients 13 years old or older: Unknown,if ever smoked Medication/Allergy-Vaccin e HxHome Medications:ASPIRIN EC (ECOTRIN) 81 MG PO DAILYATORVASTATIN (LIPITOR) 40 MG PO BEDTIMEbusP IRone (BUSPAR) [address] (CYMBALTA) 30 MG PO DAILYFLUoxetine (PROzac) 20 MG PO DAILYISOSORBID E MONONITRATE SR (IMDUR) 60 MG PO DAILYLABETALOL (TRANDATE) 300 MG PO BIDLISINOPRIL (ZESTRIL) 10 MG PO DAILYMETOPROLOL TARTRATE (LOPRESSOR) 25 MG PO [id number] XL (NIFEDICAL XL) 60 MG PO DAILYNITROGLYCERIN (NITROSTAT) 0.4 MG SL Q5M PRN PRN CHEST PAINOMEPRAZOLE ER (PriLOSEC) 40 MG PO DAILYPOTASSIUM CHLORIDE ER (KLOR-CON M20) 20 MEQ PO BIDRASAGILINE (AZILECT) 0.5 MG PO DAILYRIVAROXAB AN (XARELTO) 20 MG PO DAILYSOLIFENACIN (VESICARE) 5 MG PO DAILY Allergies:Coded Allergies:No Known Allergi es (01/16/18) Review of SystemsConstitutional:Denie s: chills, fever. Respiratory:Denies: REDDY (dyspnea on exertion), non productive cough, SOB, wheezing. Cardiovascular:Denies: chest pain, edema, palpit ations. Neuro:Reports: headache, vision change. Denies: change in LOC, confusion, dizziness, focal weakness, ga it problem, lightheaded, numbness, seizure, slurred speech, spinning sensation, syncope, unable to s peak, weakness. All systems rev neg: except as marked Objective GeneralVS/I O:Vital Signs: Date Time T emp Pulse Resp B/P B/P Pulse O2 O2 Flow FiO2 Mean Ox Delivery Rate 02/07 1937 98.3 63 18 155/84 107 9 9 Room air 02/08 1928 98 02/07 1802 77 18 149/77 101 99 02/07 1657 73 18 169/81 110 100 02/07 1513 98.4 56 17 153/79 103 100 Room air Patient Weight Weight (lb): We ight (oz): Weight (kg): 90.000 Physical ExamGeneral appearance: respiratory support, alert, awake, oriented, no acute distress, conversational, no respiratory distress, On supplemental o2 at 3L/m in via NC and satting 98%Head/Eyes: atraumatic, clear c ornea, PERRLAENT: moist mucosal membranes, normal phary nxNeck: full range of motion, non-tenderCardiovascular: normal capillary refill, normal heart sounds, regular r ate rhythmRespiratory: aerating well, clear to auscultation, symmetric expansionAbdomen: non-te nder, no distentionExtremities: moves all, normal capi llary refillMusculoskeletal: normal inspection, painle ss range of motionNeuro/SLOT FLOOR ATTENDANT: alert, oriented X 3, C BUZZ-XII intact, normal speech, no motor deficits, no sen paula deficits ResultsFindings/Data:Laboratory Tests 0 02/07 02/07 02/07 1540 1533 1533 Chemistry Sodium (136 - 145 mmol/L) 142 Potassium (3.5 - 5.1 mmol/L) 2.7 *L Chloride (98 - 107 mmol/L) 102.9 Carbon Dioxide (21 - 32 mmol/L) 32.0 Anion Gap (10 - 20) 9.8 L BUN (7 - 18 mg/dL) 15 Creatinine (0.55 - 1.02 mg/dL) 0.83 Glomerular Filtr Rate (>=60 mL/min) > 60 BUN/Creatinine Ratio (10 - 20) 18.1 Glucose (74 - 106 mg/dL) 103 Calcium (8.5 - 10.1 mg/dL) 9.1 Magne sium (1.8 - 2.4 mg/dL) 1.8 Total Bilirubin (0.0 - 1.0 mg/dL) 0.50 Direct Bilirubin (0.0 - 0.20 mg/dL) 0.15 T (15 - 37 IUnit/L) 9 L ALT (12 - 78 IUnit/L) 13 Total A lk Phosphatase (45 - 117 IUnit/L) 95 Ammonia (11 - 32 umol/L) 28 Total Creatine Kinase (26 - 208 IUnit /L) 63 Troponin I (0 - 0.045 ng/mL) <0.015 Total Protei n (6.4 - 8.2 gram/dL) 6.5 Albumin (3.4 - 5.0 g/dL) 3.6 Globulin (2.7 - 4.2 gram/dL) 2.9 Albumin/Globuli n Ratio (0.75 - 1.50) 1.2 TSH (0.36 - 3.74 uIU/mL) 1.26 0 Laboratory Tests 02/07 1533 Coagulation INR (0.8 - 1.2) 1.1 PTT (Lucian) (23.0 - 37.0 seconds) 30.0 PT Patient/Control Mix (9.0 - 14.0 seconds) 12.7 Laboratory Tests 02/07 1533 Hematology WBC (4.5 - 12.5 K/mm3) 9.3 RBC (3.7 - 5.2 mill/mm3) 4.09 Hgb (11 .5 - 15.5 gram/dL) 10.0 L Hct (36.0 - 46.0 %) 32.1 L MCV (80 - 98 fL) 78.5 L MCH (27.0 - 33.0 picogram) 24.4 L MCHC (33.0 - 36.0 gram/dL) 31.2 L RDW (11.6 - 16.2 %) 14.5 RDW Std Deviation (37.0 - 51.0 fL) 41.1 Plt Coun t (150 - 450 K/mm3) 311 MPV (6.7 - 11.0 fL) 9.9 Neut % (Auto) (39.0 - 69.0 %) 71.7 H Lymph % (Auto) (25.0 - 55 .0 %) 19.7 L [place] % (Auto) (0.0 - 10.0 %) 6.9 Eos % (A uto) (0.0 - 5.0 %) 1.4 Baso % (Auto) (0.0 - 1.0 %) 0. 1 Neut # (Auto) (1.8 - 7.7 K/mm3) 6.63 Lymph # (Auto) ( 1.0 - 5.0 K/mm3) 1.82 [place] # (Auto) (0 - 0.8 K/mm3) 0. 64 Eos # (Auto) (0.0 - 0.5 K/mm3) 0.13 Baso # (Auto) (0 .0 - 0.2 K/mm3) 0.01 Nucleated RBC % (0 - 0 %) 0.0 Nu cleated RBCs # (Man) (0.0 - 0.1 K/mm3) 0.00 Laboratory T ests 02/07 1533 Toxicology Salicylates (2.8 - 20.0 m g/dL) < 1.7 L Acetaminophen (10 - 30 mcg/mL) < 10 L Ethy l Alcohol (0.0 - 3.0 mg/dL) 4 H Radiology data:Rec ent Impressions:CAT SCAN - CT HEAD/BRAIN W/O CONT 1605 Report Impression - Status: SIGNED Enter ed: 02/08/2020 1622 IMPRESSION: No acute intracrania l bleeds or extra-axial collections. No acute terr itorial vascular infarction. No herniation or hydrocepha kell or midline shift. Chronic white matter ischemic dis ease and atrophy . Impression By: [email or web address] Marika ramesh M.D.RADIOLOGY - XR CHEST 1 V 02/07 1620 Repor t Impression - Status: SIGNED Entered: 02/08/2020 1635 IMPRESSION: No acute infiltrates, effusion or congestion.Impression By: [facility]CH[facility] Marika dobbins M.D. Diagnosis, Assessment PlanOrders: Procedure Date/time Status LIPID PROFILE (CORONARY RISK) 0 02/08 06 Active CBC WITH DIFF 02/08 600 Active BASI C METABOLIC PANEL 02/08 600 Active BUBBLE STUDY C OMPLETE 02/08 600 Active CAROTID KLARISSA - DUP 02/07 1917 A ctive MRI BRAIN W/O CONTRAST 02/07 1917 Active MAGNES IUM 02/07 1917 Complete Code status: full codePlan discussed with: patient Free Text DxA P NotesFre e text DxA P notes:# Episode of Terrible Headache and B lurred vision-R/O stroke-CT Head/Brain Negative-MRI and other stroke work up is pending-Neuro Monitoring-Neuro logy consult requested in ED, rec's pending. # Hypokalemia-K+ 2.7-Replaved IV k+ in ED-Check AM labs. # HTN -BP 149/77-Resume home meds after med rec- Monitor VS. # HLD-Resume home meds after med rec-Check L ipid panel AM # Hx of Parkinsons disease-Resume home meds after med rec-Currently stable-Monitor. 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 # J LUIS-Monitor for sleep apnea spells-Currently on 2L/min via NC an d satting 98% # Obesity -BMI 36.8-Ndutfqowtf-Qjop Restrictions. # Alcohol use-ETOH lvl at 4 -Couns elled for cessation. # Cardiac Diet for Break fast. # GI ppx : Protonics. # DVT ppx : SCD's # Full Code. Qual ity Current MedicationsCurrent medication review:I a ttest that the foregoing medication list in the medica l record is true, accurate, and complete to the be st of my knowledge. BMI Screening > 25 or < 18.5Patien t's BMI:Current BMI: 36.3 BMI status/follow-up: abnl BMI, pt to F/U w/PCP Tobacco Use/CounselingTobacco use/counseling: non tobacco user HTN Screening/Follow-upLast documented vitals:Last Documented: Result Date Time Pulse Ox 99 02/07 1 802 B/P 149/77 02/07 1802 B/P Mean 101 02/07 1802 Pu lse 77 02/07 1802 Resp 18 02/07 1802 O2 Delivery Room a ir 02/07 1513 Temp 98.4 02/07 1513 B/P assess/follo w-up: pre-existing hx of HTNBlood pressure ranges/guide:Screening for Hypertension and foll ow up measure #317 Blood pressure parameters Normal B/ P SBP </= 119 DBP </= 79 Pre-hypertensive SBP 120-1 39 DBP 80-89 Hypertensive SBP >/= 140 DBP >/= 90 Electronically Signed by Titus Xiao on 0 02/08/20 at 2015 RPT #:[id number] OF REPORTHPHist ory and physical [id number]:12:00V.[id number] 8AVAvai lable for patient [id number] 0:16:08 2020-02-08 [id number]:12:00 [facility] 19:12:[address] [facility] ([facility])Hospitalist History PhysicalREPORT#:[id number] REPORT STATUS: SignedDATE:02/08/20 TIME: 1911 PATIENT: KRISETN CAUSEY UNIT #: [id number]#: [id number] [address] 56 [address] GE: 59 SEX: F ATTEND: Julio Charles [facility] DT: 01/21 AUTHOR: Titus Xiao * ALL edits or amendm ents must be made on the electronic/computer document * History of Present Illness HPIChief complaint:Te rrible headache.PCP:PCP: No Primary or Family Physician HPI:Ms. Kristen Causey is a 57-year-old fem chel. She has history of hypertension, HLD, A. fib /fl utter and history of Parkinson's. Today, [facility] [place] and all of a sudden started with ter rible headache at 10/10, Associatedwith blurry vision so the family was concerned, hence they brought her int o the Emergency Room for evaluation. Patient's chest x -ray and CT head and brain was unremarkable. Her pota ssium is low at 2.7 and replaced in ED. recent history ofmultiple aneurysms at [facility] as per the transfer note given by ED to primary. Patients e cassandra level is elevated and at 4 today. Denies Smoking but drinks alcohol ocasionally and denies any drinks . HistoryPast medical history:Reports: Atrial fib/flutter, Depression/mood disorder, Hypertens ion, Dyslipidemia. Additional medical history:parkinson'sPast surgical history:Reports : Bilateral tubal ligation. Additional surgical history:c2 fusionFamily history:Reports: Cancer (father), Heart disease (mother), Stroke/TIA. Al cohol use: Denies EtOH useDrug use: Denies recreationa l drugsSmoking status for patients 13 years old or older: Unknown,if ever smoked Medication/Allergy-Vaccin e HxHome Medications:ASPIRIN EC (ECOTRIN) 81 MG PO DAILYATORVASTATIN (LIPITOR) 40 MG PO BEDTIMEbusP IRone (BUSPAR) [address] (CYMBALTA) 30 MG PO DAILYFLUoxetine (PROzac) 20 MG PO DAILYISOSORBID E MONONITRATE SR (IMDUR) 60 MG PO DAILYLABETALOL (TRANDATE) 300 MG PO BIDLISINOPRIL (ZESTRIL) 10 MG PO DAILYMETOPROLOL TARTRATE (LOPRESSOR) 25 MG PO [id number] XL (NIFEDICAL XL) 60 MG PO DAILYNITROGLYCERIN (NITROSTAT) 0.4 MG SL Q5M PRN PRN CHEST PAINOMEPRAZOLE ER (PriLOSEC) 40 MG PO DAILYPOTASSIUM CHLORIDE ER (KLOR-CON M20) 20 MEQ PO BIDRASAGILINE (AZILECT) 0.5 MG PO DAILYRIVAROXAB AN (XARELTO) 20 MG PO DAILYSOLIFENACIN (VESICARE) 5 MG PO DAILY Allergies:Coded Allergies:No Known Allergi es (01/16/18) Review of SystemsConstitutional:Denie s: chills, fever. Respiratory:Denies: REDDY (dyspnea on exertion), non productive cough, SOB, wheezing. Cardiovascular:Denies: chest pain, edema, palpit ations. Neuro:Reports: headache, vision change. Denies: change in LOC, confusion, dizziness, focal weakness, ga it problem, lightheaded, numbness, seizure, slurred speech, spinning sensation, syncope, unable to s peak, weakness. All systems rev neg: except as marked Objective GeneralVS/I O:Vital Signs: Date Time T emp Pulse Resp B/P B/P Pulse O2 O2 Flow FiO2 Mean O x Delivery Rate 02/07 1937 98.3 63 18 155/84 107 9 9 Room air 02/08 1928 98 02/07 1802 77 18 149/77 101 9 9 02/07 1657 73 18 169/81 110 100 02/07 1513 98.4 56 17 153/79 103 100 Room air Patient Weight Weight (lb): Jonathon ght (oz): Weight (kg): 90.000 Physical ExamGeneral appearance: respiratory support, alert, awake, oriented, no acute distress, conversational, no respiratory distress, On supplemental o2 at 3L/m in via NC and satting 98%Head/Eyes: atraumatic, clear c ornea, PERRLAENT: moist mucosal membranes, normal phary nxNeck: full range of motion, non-tenderCardiovascular: normal capillary refill, normal heart sounds, regular r ate rhythmRespiratory: aerating well, clear to auscultation, symmetric expansionAbdomen: non-te nder, no distentionExtremities: moves all, normal capi llary refillMusculoskeletal: normal inspection, painle ss range of motionNeuro/SLOT FLOOR ATTENDANT: alert, oriented X 3, C BUZZ-XII intact, normal speech, no motor deficits, no sen paula deficits ResultsFindings/Data:Laboratory Tests 02/07 02/07 02/07 1540 1533 1533 Chemistry Sodium (136 - 145 mmol/L) 142 Potassium (3.5 - 5.1 mmol/L) 2.7 *L Chloride (98 - 107 mmol/L) 102.9 Carbon Dioxide (21 - 32 mmol/L) 32.0 Anion Gap (10 - 20) 9.8 L BUN (7 - 18 mg/dL) 15 Creatinine (0.55 - 1.02 mg/dL) 0.83 Glomerular Filtr Rate (>=60 mL/min) > 60 BUN/Cre atinine Ratio (10 - 20) 18.1 Glucose (74 - 106 mg/dL) 1 03 Calcium (8.5 - 10.1 mg/dL) 9.1 Magnesium (1.8 - 2.4 mg/dL) 1.8 Total Bilirubin (0.0 - 1.0 mg/dL) 0.5 0 Direct Bilirubin (0.0 - 0.20 mg/dL) 0.15 AST (15 - 37 IUnit/L) 9 L ALT (12 - 78 IUnit/L) 13 Total Alk Phosphatase (45 - 117 IUnit/L) 95 Ammonia (11 - 32 umol/L) 28 Total Creatine Kinase (26 - 208 IUnit /L) 63 Troponin I (0 - 0.045 ng/mL) <0.015 Total Protei n (6.4 - 8.2 gram/dL) 6.5 Albumin (3.4 - 5.0 g/dL) 3.6 Globulin (2.7 - 4.2 gram/dL) 2.9 Albumin/Globul in Ratio (0.75 - 1.50) 1.2 TSH (0.36 - 3.74 uIU/mL) 1.260 Laboratory Tests 02/07 1533 Coagulation INR (0. 8 - 1.2) 1.1 PTT (Leon) (23.0 - 37.0 seconds) 30.0 PT Patient/Control Mix (9.0 - 14.0 seconds) 12.7 Laboratory Tests 02/07 1533 Hematology WBC (4.5 - 12.5 K/mm3) 9.3 RBC (3.7 - 5.2 mill/mm3) 4.09 Hgb (1 1.5 - 15.5 gram/dL) 10.0 L Hct (36.0 - 46.0 %) 32.1 L MCV (80 - 98 fL) 78.5 L MCH (27.0 - 33.0 picogram) 2 4.4 L MCHC (33.0 - 36.0 gram/dL) 31.2 L RDW (11.6 - 16 .2 %) 14.5 RDW Std Deviation (37.0 - 51.0 fL) 41.1 Plt Count (150 - 450 K/mm3) 311 MPV (6.7 - 11.0 fL) 9.9 Ne ut % (Auto) (39.0 - 69.0 %) 71.7 H Lymph % (Auto) (25 .0 - 55.0 %) 19.7 L [place] % (Auto) (0.0 - 10.0 %) 6.9 Eos % (Auto) (0.0 - 5.0 %) 1.4 Baso % (Auto) (0.0 - 1. 0 %) 0.1 Neut # (Auto) (1.8 - 7.7 K/mm3) 6.63 Lymph # (Auto) (1.0 - 5.0 K/mm3) 1.82 [place] # (Auto) (0 - 0.8 K/ mm3) 0.64 Eos # (Auto) (0.0 - 0.5 K/mm3) 0.13 Baso # (Auto) (0.0 - 0.2 K/mm3) 0.01 Nucleated RBC % (0 - 0 %) 0.0 Nucleated RBCs # (Man) (0.0 - 0.1 K/mm3) 0.00 Laboratory Tests 02/07 1533 Toxicology Salicylat es (2.8 - 20.0 mg/dL) < 1.7 L Acetaminophen (10 - 30 mcg /mL) < 10 L Ethyl Alcohol (0.0 - 3.0 mg/dL) 4 H Radiolo gy data:Recent Impressions:CAT SCAN - CT HEAD/BRAIN W/O CONT 02/07 1605 Report Impression - Status: S IGNED Entered: 02/08/2020 4232 IMPRESSION: No acute intracranial bleeds or extra-axial collections. No acute territorial vascular infarction. No hernia tion or hydrocephalus or midline shift. Chronic white ma tter ischemic disease and atrophy . Impression By: tPatricia Rangel M.D.RADIOLOGY - XR CHEST 1 V 1620 Report Impression - Status: SIGNED Enter ed: 02/08/2020 1635 IMPRESSION: No acute infiltrates , effusion or congestion.Impression By: Li Rangel M.D. Diagnosis, Assessment PlanOrders: Procedure Date/time Status LIPID PROFILE (STARKEY RY RISK) 02/08 600 Active CBC WITH DIFF 02/08 600 Active BASIC METABOLIC PANEL 02/08 600 Active BUBBLE S TUDY COMPLETE 02/08 600 Active CAROTID KLARISSA - DUP 1916 Active MRI BRAIN W/O CONTRAST 02/07 1917 Active MAGNESIUM 02/07 1917 Complete Code status: full codePlan discussed with: patient Free Text DxA P NotesFree text DxA P notes:# Episode of Terrible Headache and Blurred vision-R/O stroke-CT Head/B rain Negative-MRI and other stroke work up is pending -Neuro Monitoring-Neurology consult requested in ED, re c's pending. # Hypokalemia-K+ 2.7-Replaved IV k+ in ED-Check AM labs. # HTN -BP 149/77-Resume home m eds after med rec-Monitor VS. # HLD-Resume home meds after med rec-Check Lipid panel AM # Hx of Parkinsons disease-Resume home meds after med rec-Currently stable-Monitor. 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 # J LUIS-Monitor for sleep apnea spells-Currently on 2L/min via NC and satting 98 % # Obesity -BMI 36.8-Eejhxjuwff-Byvl Restrictions. # Alcohol use-ETOH lvl at 4 -Counselled for cessat ion. # Cardiac Diet for Break fast. # GI ppx : Protonic s. # DVT ppx : SCD's # Full Code. Quality Current MedicationsCurrent medication review:I attest th at the foregoing medication list in the medical record is true, accurate, and complete to the best of my knowledge. BMI Screening > 25 or < 18.5Patient's BMI:Current BMI: 36.3 BMI status/follow-up: abnl BMI, pt to F/U w/PCP Tobacco Use/CounselingTobacco use/counseling: non tobacco user HTN Screening/Follow-upLast documented vitals:Last Documented: Result Date Time Pulse Ox 99 02/07 1 802 B/P 149/77 02/07 1802 B/P Mean 101 02/07 1802 Pulse 77 02/07 1802 Resp 18 02/07 1802 O2 Delivery Room a ir 02/07 1513 Temp 98.4 02/07 1513 B/P assess/follo w-up: pre-existing hx of HTNBlood pressure ranges/guide:Screening for Hypertension and foll ow up measure #317 Blood pressure parameters Normal B/ P SBP </= 119 DBP </= 79 Pre-hypertensive SBP 120-139 DBP 80-89 Hypertensive SBP >/= 140 DBP >/= 90 Electronically Signed by Titus Xiao on 0 02/08/20 at 2015 at 1922 RPT #:[id number] OF REPORTHPHistory and physical [id number]:12:00V.[id number] 8AVAvai lable for patient [id number] 9:22:23 2020-02-08 [id number]:00:00 [facility] 16:00:[address] [facility] ([facility])EMERGENCY PROVIDER REPORTREPORT#:[id number] REPORT STATUS: SignedDATE:02/08/20 TIME: 1600 PATIENT: KRISTEN CAUSEY UNIT #: [id number]#: [id number] [address] 59 SEX: F PCP PHYS: No Primary or Family PhysicianSERVICE AUTHOR: Shannon Oquendo MD * ALL edits or amendments must be made on the electronic/comput er document * HPI-Headache GeneralInitial Greet Marc e/Time 02/08/20 1507PCPBaneur PresentationChief Complai nt HeadacheSudden in Onset? NoSeverity: Onset Sever e Free Text HPI NotesFree Text HPI NotesPatient is a 59-year-old female with PMH HTN who presents wit h headache. Patientappears very uncomfortable and is not communicating very well. Not answering many ques tions. States she has had a headache every day for two years but thinksit might be worse today. Patient state s it covers her entire head. Complains of nausea but no vomiting. Patient denies photophobia. She states she normally takes ibuprofen for her headaches but d idn't take any today because "they" told her not to. S he is unable to say who "they" are or why they told he r not to takeibuprofen. Of note: Sats upon arrival in the room were 70% on room air with good waveform. Sa ts increased to low 90s with waking and repositioni ng patient. Placed on nasalcannula at 4 L with impr ovement to 100%. Risk-Headache Risk Stratification)( Subarachnoid Hemorrhage Risk factors reviewed)( IC Mass Lesion Risk factors reviewed Review of Systems R OS StatementsUnable to Obtain ROS Medical condition , Patient condition Focused Review of SystemsNeurologicReports: Headache. Past Medical History - AdultStated Complaint HEADACHEAllergie sCoded Allergies:No Known Allergies (01/16/18) Home MedicationsActive ScriptsATORVASTATIN (LIPITOR) 40 MG PO BEDTIME ATORVASTATIN (LIPITOR) 40 MG PO BEDT SAURABH #30 TAB Prov: 12/22/16LISINOPRIL (ZESTRIL) 10 MG PO DAILY LISINOPRIL (ZESTRIL) 10 MG PO DAILY #30 TAB Prov : 02/20/18METOPROLOL TARTRATE (LOPRESSOR) 25 MG PO Q12HR METOPROLOL TARTRATE (LOPRESSOR) 25 MG PO Q12HR # 60 TAB Prov: 02/20/18ASPIRIN EC (ECOTRIN) 81 MG PO BELKIS Y ASPIRIN EC (ECOTRIN) 81 MG PO DAILY #30 TAB Prov : 01/17/18RIVAROXABAN (XARELTO) 20 MG PO DAILY RIVAROXABAN (XARELTO) 20 MG PO DAILY #30 TABS Pr ov: 01/17/18 Reported MedicationsNIFEdipine XL (NIFE DICAL XL) 60 MG PO DAILY LABETALOL (TRANDATE) 300 MG P O BID OMEPRAZOLE ER (PriLOSEC) 40 MG PO DAILY ISOSORBI DE MONONITRATE SR (IMDUR) 60 MG PO DAILY busPIRone (BUSPAR) 10 MG PO BID RASAGILINE (AZILECT) 0.5 M G PO DAILY SOLIFENACIN (VESICARE) 5 MG PO DAILY DULox etine (CYMBALTA) 30 MG PO DAILY POTASSIUM CHLORIDE ER (KLOR-CON M20) 20 MEQ PO BID FLUoxetine (PROzac) 20 MG PO DAILY NITROGLYCERIN (NITROSTAT) 0.4 MG SL Q5M PRN PRN CHEST PAIN Unobtainable due to: Medical cond ition, Patient conditionPast Medical History:Reports: A trial fib/flutter, Depression/mood disorder, Hypertens ion, Dyslipidemia. Additional Medical Historyparkinso n'sPast Surgical History:Reports: Bilateral tubal ligati on. Additional Surgical Historyc2 fusionFamily History:Reports: Cancer (father), Heart disease (mother), Stroke/TIA. Alcohol Use Denies EtOH us eDrug Use Denies recreational drugsSmoking status for patients 13 years old or older: Unknown,if ever smoked Physical Exam Vital SignsVital SignsFirst Docume nted: Result Date Time Pulse Ox 100 02/07 1513 B/P 153 /79 02/07 1513 B/P Mean 103 02/07 1513 O2 Delivery R oom air 02/07 1513 Temp 36.9 02/07 1513 Pulse 56 02/07 1513 Resp 17 02/07 1513 Last Documented: Result Date Time Pulse Ox 99 02/07 1802 B/P 149/77 02/07 1802 B/P Mean 101 02/07 1802 Pulse 77 02/07 1802 Resp 18 02/07 1802 O2 Delivery Room air 02/07 1513 Temp 36.9 02/07 1513 Review of Vital Signs Reviewed Focused PEGeneral /Const General/Const Well developed, Well hydrated, Well nourished Text/Dict NotesVery somnolent. Appears very uncomfortable. Appears somewhat confused. Unable toanswer many questions.MS Head Head Atraumat ic, NormocephalicEyes Eyes PERRL, EOMI, No photophob ia, Conjunctiva NL, Temporal arteries NLEars/Nose/Th roat Ears/Nose/Throat Airway patent, Mucous membranes moist, Pharynx NL, No sinus tendernessMS Neck Neck S upple, No meningismus, Full range of motion, No swellin g, Non-tender, No massesResp/Chest Respiratory/Ches t Breath sounds NL, Breath sounds = bilat, No resp iratory distress, No rales, No rhonchi, No wheezingCardiovascular Cardiovascular Heart rate NL, Regular rhythm, Heart sounds NL, Peripheral circ ulation NLAbdomen/GI Abdomen/GI Soft, Non-tender, No gua rding, No reboundSkin Skin Color NL, No rash, Warm, Dry , Turgor NLNeurologic Neurologic Oriented X3, S peech NL, No motor deficits, No sensory deficits, CNII - XII intact, Cerebellar NL Additional PEMS Back Back Atraumatic, Inspection NLLymphatic Lymphatic No gross adenopathy Interpretation Diagnostics Lab Result s InterpretationConsiderations Independ review tomasa mittal, Reviewed prior recordsResultsLaboratory Tests 1533:[Embedded Image Not Available]Laboratory Te sts: 02/07 02/07 02/07 1540 1533 1533 Chemistry Sodiu m (136 - 145 mmol/L) 142 Potassium (3.5 - 5.1 mmol/L) 2.7 *L Chloride (98 - 107 mmol/L) 102.9 Carbon Dioxide (21 - 32 mmol/L) 32.0 Anion Gap (10 - 20) 9.8 L BUN (7 - 18 mg/dL) 15 Creatinine (0.55 - 1.02 mg/dL) 0.83 Glomerular Filtr Rate (>=60 mL/min) > 60 BUN/Cre atinine Ratio (10 - 20) 18.1 Glucose (74 - 106 mg/dL) 10 3 Calcium (8.5 - 10.1 mg/dL) 9.1 Magnesium (1.8 - 2.4 mg/dL) 1.8 Total Bilirubin (0.0 - 1.0 mg/dL) 0.5 0 Direct Bilirubin (0.0 - 0.20 mg/dL) 0.15 AST (15 - 37 IUnit/L) 9 L ALT (12 - 78 IUnit/L) 13 Total Alk Phosphatase (45 - 117 IUnit/L) 95 Ammonia (11 - 32 umol/L) 28 Total Creatine Kinase (26 - 208 IUnit /L) 63 Troponin I (0 - 0.045 ng/mL) <0.015 Total Prote in (6.4 - 8.2 gram/dL) 6.5 Albumin (3.4 - 5.0 g/dL) 3.6 Globulin (2.7 - 4.2 gram/dL) 2.9 Albumin/Globuli n Ratio (0.75 - 1.50) 1.2 TSH (0.36 - 3.74 uIU/mL) 1.26 0 Coagulation INR (0.8 - 1.2) 1.1 PTT (Lucian) (23.0 - 37.0 seconds) 30.0 PT Patient/Control Mix (9.0 - 14.0 seconds) 12.7 Hematology WBC (4.5 - 12.5 K/mm3) 9.3 RBC (3.7 - 5.2 mill/mm3) 4.09 Hgb (11.5 - 15.5 gram /dL) 10.0 L Hct (36.0 - 46.0 %) 32.1 L MCV (80 - 98 f L) 78.5 L MCH (27.0 - 33.0 picogram) 24.4 L MCHC (3 3.0 - 36.0 gram/dL) 31.2 L RDW (11.6 - 16.2 %) 14.5 RD W Std Deviation (37.0 - 51.0 fL) 41.1 Plt Count (150 - 450 K/mm3) 311 MPV (6.7 - 11.0 fL) 9.9 Neut % (Auto ) (39.0 - 69.0 %) 71.7 H Lymph % (Auto) (25.0 - 55.0 %) 19.7 L [place] % (Auto) (0.0 - 10.0 %) 6.9 Eos % (Auto) (0 .0 - 5.0 %) 1.4 Baso % (Auto) (0.0 - 1.0 %) 0.1 Neut # (Auto) (1.8 - 7.7 K/mm3) 6.63 Lymph # (Auto) (1. 0 - 5.0 K/mm3) 1.82 [place] # (Auto) (0 - 0.8 K/mm3) 0.64 Eos # (Auto) (0.0 - 0.5 K/mm3) 0.13 Baso # (Auto) (0.0 - 0.2 K/mm3) 0.01 Nucleated RBC % (0 - 0 %) 0.0 Nuclea laureano RBCs # (Man) (0.0 - 0.1 K/mm3) 0.00 Toxicology Salicylates (2.8 - 20.0 mg/dL) < 1.7 L Acetamino phen (10 - 30 mcg/mL) < 10 L Ethyl Alcohol (0.0 - 3.0 mg/dL) 4 H Recent Impressions:CAT SCAN - CT HEAD/BRAIN W/O CONT 02/07 1605 Report Impression - Status: S IGNED Entered: 02/08/2020 1622 IMPRESSION: No acute intracranial bleeds or extra-axial collections. No acute territorial vascular infarction. No hernia tion or hydrocephalus or midline shift. Chronic white ma tter ischemic disease and atrophy . Impression By: lucy Rangel M.D.RADIOLOGY - XR CHEST 1 V 1620 Report Impression - Status: SIGNED Enter ed: 02/08/2020 1635 IMPRESSION: No acute infiltrates , effusion or congestion.Impression By: Li Rangel M.D. Lab Imaging StatementLaboratory radiographic studies reviewed and considered in the medical decision-making. Point of Care TestingPu lse Oximetry Pulse Ox % 100 On: Room air Interpretat ion Interpreted by me, Pulse oximetry normal ECG #1 InterpretationDate 02/08/20Time 1527Interpreted by and reviewed by Bakari ECG Interpretation Normal rate (93), Normal sinus rhythm, No acute ischemic changes, No STEMI, Normal QRS Re-Evaluation MDM Free Text MD Rhoades NotesFree Text MDM NotesPrior records reviewed: patient was seen here in 2018 after a transient episode of bilateral vision loss and headache. Patient was seen by neurology. MRI brain was obtained to rule out ac radha stroke. Negative. Documentation patient with PMH a fib on Xarelto. Also history of possible Parkinson's . Documentation that patient was to follow-up with neurosurgery for close follow-up of small cerebralaneurysm. No neurosurgical intervention was needed at that time. )( Re-Evaluation/Progress #1Text/Dict NoteNurse reports that patient told him she was at [facility] for similar heada nico. They diagnosed her with "three aneurysms" at lois t time. She states they discharged her.Time of Re-Eval 1 610)( Re-Eval Status Unchanged Re-Evaluation/Progress #2Text/Dict NotePatient resting. States she feel s significantly better but still has a headache.St ill appears very weak but more able/willing to answe r questions at this time. No focal neuro deficits noted.Time of Eval 170 Re-Evaluation/Progress #3Text/Dict NotePatient resting. Continues with moderate headache. Discussed results and plan fo r admission. Patient voices understanding and agreement.Time of Eval 1844 ED CourseMedication( s) OrderedMedication(s) Ordered:Central Nervous Sys tem Agents Sig/Sb Start time Last Medication Dose R oute Stop Time Status Admin Acetaminophen 650 MG Q4H PRN PRN 02/070 AC 02/08 PO 03/11 2012 1637 Electrolytic, Caloric, And Vangie Sig/Sb Start ti me Last Medication Dose Route Stop Time Status Admin Sod ium Chloride 1,000 ML .Q10H 02/070 DC 02/08 IV 02/08 0646 1226 Gastrointestinal Drugs Sig/Sb Start t saurabh Last Medication Dose Route Stop Time Status Admi n Metoclopramide HCl 10 MG Q6H PRN PRN 02/07 1900 AC IV 03/11 2012 Patient Discharge Departure Vital Signs/ConditionVital SignsFirst Documented: Resu lt Date Time Pulse Ox 100 02/07 1513 B/P 153/79 02/07 15 13 B/P Mean 103 02/07 1513 O2 Delivery Room air 02/07 1 513 Temp 36.9 02/07 1513 Pulse 56 02/07 1513 Resp 17 02/07 1513 Last Documented: Result Date Time Pulse Ox 99 02/07 1802 B/P 149/77 02/07 1802 B/P Mean 101 1802 Pulse 77 02/07 1802 Resp 18 02/07 1802 O2 Delivery Room air 02/07 1513 Temp 36.9 02/07 151 3 All vital signs available at the time of this entry have been reviewed. Clinical ImpressionClinical ImpressionPrimary Impression: HeadacheSecondary Impressions: Altered mental status, Hypokalemia, Hypoxia Disposition DecisionAdmit Admit Physicia n Name Melina Nieves MD Admit Physician Hospitalist Re quest Time 184 Request Date 02/08/20 )( Admission Acc epts Yes )( Accepted Time 1845 )( Accepted Date 02/07 Call Information will see patient, agrees with e fernando, agrees with plan Discharge/Care PlanReferralsNo Primary or Family Physician (PCP/Family) Critical CareTi me Spent (minutes): 30Services Performed Patient management by me, Time spent at bedside, Reviewi ng test results, Reviewing imaging, Discussing patient c are, Documentation in recordSeparately billable proce tramaine excluded from time. at 2259RPT #:[id number] OF REPORTEDEmergency [facility] [id number]:00:00V.[id number] ailable for patient [id number]:00:0 8
[2023-04-23 19:42] LABS: Absolute Lymphocytes (CBC) 3.2 K/uL (0.7-4.9); Hematocrit 36.8 % (36.0-45.0); Lymphocytes % 34.3 % (15.3-44.8); MCV 77.8 fL (80-100); MPV 7.5 fL (7.6-11.3); Platelets 377 thou/uL (152-406); RBC Red Blood Cell Count 4.73 M/uL (3.86-4.86)
--- NOTE | 2023-04-23 19:54 | RAD REPORT ---
EXAM DESCRIPTION: [place] Single View04/23/2023 7:45 pm CLINICAL HISTORY: Chest pain COMPARISON: none FINDINGS: The lungs appear clear of acute infiltrate. The heart is mildly enlarged IMPRESSION: No acute abnormalities displayed
[2023-04-23 20:03] LABS: ALT/SGPT 30 U/L (13-56); AST/SGOT 9 U/L (15-37); Albumin 3.3 g/dL (3.4-5.0); Alkaline Phosphatase 127 U/L (45-117); BUN Blood Urea Nitrogen 17 mg/dL (7-18); Bicarbonate 38 mEq/L (21-32); Bilirubin Total 0.3 mg/dL (0.2-1.0); Glomerular Filtration Rate 74 ml/min (=/>90); Glucose Level 108 mg/dL (74-106); Magnesium 1.7 mg/dL (1.6-2.4); Protein, Total 7.6 g/dL (6.4-8.2); Sodium Level 140 mEq/L (136-145); Troponin High Sensitivity 17.4 pg/mL (<58.9)
[2023-04-23 20:04] LABS: Bilirubin Direct < 0.1 mg/dL (0-0.2); Bilirubin Indirect, Calculated ND mg/dL (0.2-0.8)
[2023-04-23 20:06] LABS: Potassium 2.4 mEq/L (3.5-5.1)
--- NOTE | 2023-04-23 20:44 | EDPHYS ---
Physician Documentation [facility] Name: Donny Causey Age: 63 yrs Sex: Female : 1960 Arrival Date: 04/23/2023 Time: 18:40 Bed 7 Private MD: ED Physician Kash Baez HPI: 04/23 22:15 This 63 yrs old Female presents to ER via Ambulatory with complaints of Chest ms3 Pain, Back Pain, Arm Pain, High Blood Pressure. 22:15 63-year-old female with past medical history of cerebrovascular accident, coronary ms3 arthrosclerosis, hypertension, anxiety, depression presents to the emergency department for chest pain that radiates to her left arm and back. Patient states this has been ongoing for 3 weeks. Patient denies nausea, vomiting. Patient states pain is a 9/10. Patient states she has had a cough for long time and shortness of breath associated with this. Patient denies any alleviating or inciting factors. Historical: - Allergies: 19:07 No Known Allergies; kl - PMHx: 19:07 Cerebrovascular accident; coronary atherosclerosis; Hypertensive disorder; Anxiety; kl Depressive disorder; 19:18 Atrial fibrillation; kl - Immunization history:: Client reports receiving the 1st dose of the Covid vaccine, Flu vaccine is not up to date. - Social history:: Smoking status: Patient denies any tobacco usage or history of. ROS: 22:15 Constitutional: Negative for fever, and chills. Neck: Negative for injury, pain, and ms3 swelling, 22:15 Abdomen/GI: Negative for abdominal pain, nausea, vomiting, diarrhea, and constipation, MS/Extremity: Negative for injury and deformity, Skin: Negative for injury, rash, and discoloration, 22:15 Cardiovascular: Positive for chest pain, 22:15 Respiratory: Positive for cough, shortness of breath, 22:15 All other systems are negative, Exam: 22:15 Constitutional: This is a well developed, well nourished patient who is awake, alert, ms3 and in no acute distress. Head/Face: Normocephalic, atraumatic. Neck: Trachea midline, no cervical lymphadenopathy. Supple, full range of motion without nuchal rigidity, or vertebral point tenderness. No Meningismus. Chest/axilla: Normal chest wall appearance and motion. Nontender with no deformity. Cardiovascular: Regular rate and rhythm with a normal S1 and S2. No gallops, murmurs, or rubs. Normal PMI, no JVD. No pulse deficits. Respiratory: Lungs have equal breath sounds bilaterally, clear to auscultation and percussion. No rales, rhonchi or wheezes noted. No increased work of breathing, no retractions or nasal flaring. Abdomen/GI: Soft, non-tender, with normal bowel sounds. No distension or tympany. No guarding or rebound. No evidence of tenderness throughout. Skin: Warm, dry with normal turgor. Normal color with no rashes, no lesions, and no evidence of cellulitis. MS/ Extremity: Pulses equal, no cyanosis. Neurovascular intact. Full, normal range of motion. 22:22 ECG was reviewed by the Attending Physician. ms3 Vital Signs: 19:20 BP 144 / 109; Pulse 84; Resp 16; Temp 97.9(TE); Pulse Ox 97% on R/A; Weight 83.91 kg kl (R); Height 5 ft. 2 in. ; Pain 9/10; 21:22 BP 142 / 96; Pulse 87; Resp 18 S; Pulse Ox 96% on R/A; as6 22:29 Pulse 74; Resp 15 S; Pulse Ox 94% on R/A; as6 19:20 Body Mass Index 33.84 (83.91 kg, 157.48 cm) kl 19:20 Pain Scale: Adult kl MDM: 19:17 Patient medically screened. ms3 22:15 Differential diagnosis: abnormal EKG, acute myocardial infarction, coronary artery ms3 disease. HEART Score: History: Moderately Suspicious (1), ECG: Normal (0), Age: > or = 65 years (2), Risk Factors: > or = 3 Risk factors for atherosclerotic disease (2), Troponin: < or = 1 x Normal Limit (0), Total Score = 5. 22:19 The patient was given aspirin in the Emergency Department. Data reviewed: vital signs, ms3 nurses notes, lab test result(s), EKG, radiologic studies, and as a result, I will admit patient. Consideration of Admission/Observation Patient was admitted/placed on observation. Management of patient was discussed with the following: Hospitalist: Dr Muse. I considered the following discharge prescriptions or medication management in the emergency department Medications were administered in the Emergency Department. See MAR. Counseling: I had a detailed discussion with the patient and/or guardian regarding the historical points, exam findings, and any diagnostic results supporting the discharge/admit diagnosis, lab results, radiology results, the need for further work-up and treatment in the hospital. 22:21 Independent interpretation of the following test(s) in the Emergency Department EKG: ms3 See my EKG interpretation above. ED course: Discussed necessity for observation with patient. All questions answered.. 04/23 19:17 Order name: Basic Metabolic Panel; Complete Time: 20:28 ms3 04/23 19:17 Order name: CBC with Diff; Complete Time: 20:28 ms3 04/23 19:17 Order name: D-Dimer; Complete Time: 20:28 ms3 04/23 19:17 Order name: LFT's; Complete Time: 20:28 ms3 04/23 19:17 Order name: Magnesium; Complete Time: 20:28 ms3 04/23 19:17 Order name: Troponin HS; Complete Time: 20:28 ms3 04/23 21:05 Order name: Troponin High Sensitivity; Complete Time: 22:20 EDMS 04/23 21:05 Order name: CBC with Automated Diff EDMS 04/23 21:05 Order name: CBC with Automated Diff EDMS 04/23 21:05 Order name: Comprehensive Metabolic Panel EDMS 04/23 21:05 Order name: Comprehensive Metabolic Panel EDMS 04/23 19:17 Order name: XRAY Chest (1 view); Complete Time: 20:28 ms3 04/23 19:17 Order name: EKG; Complete Time: 19:18 ms3 04/23 21:05 Order name: CONS Physician Consult EDMS 04/23 19:17 Order name: Cardiac monitoring; Complete Time: 21:21 ms3 04/23 19:17 Order name: EKG - Nurse/Tech; Complete Time: 19:30 ms3 04/23 19:17 Order name: IV Saline Lock; Complete Time: 19:30 ms3 04/23 19:17 Order name: Labs collected and sent; Complete Time: 19:30 ms3 04/23 19:17 Order name: O2 Per Protocol; Complete Time: 19:30 ms3 04/23 19:17 Order name: O2 Sat Monitoring; Complete Time: 21:21 ms3 EC:22 Rate is 78 beats/min. Rhythm is irregularly irregular. QRS George is Normal. QRS interval ms3 is normal. Clinical impression: Atrial Fibrillation. Interpreted by me. Reviewed by me. Administered Medications: 22:35 Drug: Potassium PO Effervescent Tablet 50 mEq PO once; dissolve in 4 ounces of water or as6 juice Route: PO; 22:36 Follow up: Response: No adverse reaction as6 22:35 Drug: Potassium Chloride IV 20 mEq IV at calculated rate once; administer over 1-2 as6 hours Route: IV; Rate: calculated rate; Site: left antecubital; 22:36 Follow up: Response: No adverse reaction; IV Status: Infusion continued upon admission; as6 IV Intake: 1ml 22:36 Drug: Aspirin PO Chewable Tablet 324 mg PO once; 81 mg tablets x 4 Route: PO; as6 22:36 Follow up: Response: No adverse reaction as6 Disposition: 22:21 Critical Care:. ms3 Disposition Summary: 04/23/23 20:43 Hospitalization Ordered Notes: Hospitalization Status: Observation ms3 Provider: Ankit Muse ms3 Location: Telemetry/[facility] (observation) ms3 Condition: Stable ms3 Problem: new ms3 Symptoms: are unchanged ms3 Bed/Room Type: Standard ms3 Room Assignment: 223(04/23/23 21:24) as6 Diagnosis - Chest pain, unspecified ms3 - Essential (primary) hypertension ms3 - Unspecified atrial fibrillation ms3 - Hypokalemia ms3 Forms: - Medication Reconciliation Form ms3 - SBAR form ms3 - Leadership Thank You Letter ms3 Critical care time excluding procedures: 22:21 Critical care time: Bedside Care: 30 minutes, Consultation: 5 minutes. Total time: 35 ms3 minutes Signatures: Dispatcher [employer] Mary Perera RN RN kl Sims, Marcus, DO DO ms3 Dao Mcneal RN RN as6 Corrections: (The following items were deleted from the chart) 21:24 20:43 ms3 as6
--- NOTE | 2023-04-23 20:44 | ER ---
Nurse's Notes [facility] Name: Donny Causey Age: 63 yrs Sex: Female : 1960 Arrival Date: 04/23/2023 Time: 18:40 Bed 7 Private MD: Diagnosis: Chest pain, unspecified;Essential (primary) hypertension;Unspecified atrial fibrillation;Hypokalemia Presentation: 04/23 19:06 Chief complaint: Patient states: chest pain x 2 weeks seen here x 5 days prior for same kl complaint. 19:19 Note pt reports recent problems with insomnia anxiety and depression off medications kl until yesterday. 20:57 Coronavirus screen: At this time, the client does not indicate any symptoms associated as6 with coronavirus-19. Ebola Screen: No symptoms or risks identified at this time. Initial Sepsis Screen: Does the patient meet any 2 criteria? No. Patient's initial sepsis screen is negative. Does the patient have a suspected source of infection? No. Patient's initial sepsis screen is negative. Risk Assessment: Do you want to hurt yourself or someone else? Patient reports no desire to harm self or others. Onset of symptoms was April 09, 2023. 20:57 Acuity: WENCESLAO 3 as6 20:57 Method Of Arrival: Ambulatory as6 Triage Assessment: 19:18 General: Appears distressed, Behavior is anxious. Pain: Complains of pain in chest Pain kl currently is 9 out of 10 on a pain scale. EENT: No deficits noted. Cardiovascular: Rhythm is atrial fibrillation. Respiratory: No deficits noted. Historical: - Allergies: 19:07 No Known Allergies; kl - PMHx: 19:07 Cerebrovascular accident; coronary atherosclerosis; Hypertensive disorder; Anxiety; kl Depressive disorder; 19:18 Atrial fibrillation; kl - Immunization history:: Client reports receiving the 1st dose of the Covid vaccine, Flu vaccine is not up to date. - Social history:: Smoking status: Patient denies any tobacco usage or history of. Screenin:30 [facility] ED Fall Risk Assessment (Adult) Score/Fall Risk Level 0 - 2 = Low Risk. Abuse as6 screen: Denies threats or abuse. Denies injuries from another. Nutritional screening: No deficits noted. Tuberculosis screening: No symptoms or risk factors identified. Assessment: 21:31 General: Appears in no apparent distress. Behavior is calm, cooperative. Pain: as6 Complains of pain in head Quality of pain is described as aching. Neuro: Reports headache. Cardiovascular: Reports chest pain, Capillary refill < 3 seconds Patient's skin is warm and dry. Respiratory: Respiratory effort is even, unlabored, Respiratory pattern is regular, symmetrical. GI: No deficits noted. No signs and/or symptoms were reported involving the gastrointestinal system. : No deficits noted. No signs and/or symptoms were reported regarding the genitourinary system. EENT: No deficits noted. No signs and/or symptoms were reported regarding the EENT system. Derm: Skin is intact, is healthy with good turgor. Vital Signs: 19:20 BP 144 / 109; Pulse 84; Resp 16; Temp 97.9(TE); Pulse Ox 97% on R/A; Weight 83.91 kg kl (R); Height 5 ft. 2 in. ; Pain 9/10; 21:22 BP 142 / 96; Pulse 87; Resp 18 S; Pulse Ox 96% on R/A; as6 22:29 Pulse 74; Resp 15 S; Pulse Ox 94% on R/A; as6 19:20 Body Mass Index 33.84 (83.91 kg, 157.48 cm) kl 19:20 Pain Scale: Adult kl ED Course: 18:43 Patient arrived in ED. mr 19:03 Kash Baez DO is Attending Physician. ms3 19:30 Basic Metabolic Panel Sent. iw 19:30 CBC with Diff Sent. iw 19:30 D-Dimer Sent. iw 19:30 LFT's Sent. iw 19:30 Magnesium Sent. iw 19:30 Troponin HS Sent. iw 19:30 Inserted saline lock: 22 gauge in left antecubital area, using aseptic technique. Blood iw collected. 19:33 XRAY Chest (1 view) Sent. lg3 19:47 XRAY Chest (1 view) In Process Unspecified. EDMS 20:43 Ankit Muse MD is Hospitalizing Provider. ms3 20:58 Triage completed. as6 20:58 Arm band placed on. as6 21:13 Dao Mcneal, RN is Primary Nurse. as6 21:30 No provider procedures requiring assistance completed. Patient admitted, IV remains in as6 place. 21:30 Bed in low position. Call light in reach. Side rails up X 1. Provided Education on: as6 need for admit. Administered Medications: 22:35 Drug: Potassium PO Effervescent Tablet 50 mEq PO once; dissolve in 4 ounces of water or as6 juice Route: PO; 22:36 Follow up: Response: No adverse reaction as6 22:35 Drug: Potassium Chloride IV 20 mEq IV at calculated rate once; administer over 1-2 as6 hours Route: IV; Rate: calculated rate; Site: left antecubital; 22:36 Follow up: Response: No adverse reaction; IV Status: Infusion continued upon admission; as6 IV Intake: 1ml 22:36 Drug: Aspirin PO Chewable Tablet 324 mg PO once; 81 mg tablets x 4 Route: PO; as6 22:36 Follow up: Response: No adverse reaction as6 Medication: 21:31 VIS not applicable for this client. as6 Intake: 22:36 IV: 1ml; Total: 1ml. as6 Outcome: 20:43 Decision to Hospitalize by Provider. ms3 21:30 Condition: stable as6 21:30 Instructed on the need for admit, 21:50 Admitted to Med/surg accompanied by tech, via wheelchair, room 223, with chart, Report as6 called to Vince SOTO 22:36 Patient left the ED. as6 Signatures: Dispatcher [employer] EDMS Mary Mcgovern, RN Aida Reynolds, Chip Reg mr Ct Farrell, RN Princess Lopez, Kash Du RN, DO ms3 Dao Mcneal RN RN as6
[2023-04-23] MEDS ORDERED: ONDANSETRON 4 MG/2 ML VIAL IV PRN (21:00)
[2023-04-23] MEDS ORDERED: ACETAMINOPHEN 500 MG TAB PO PRN (21:00)
[2023-04-23] MEDS ORDERED: METOPROLOL TAR 25 MG TAB PO ONE (21:00)
[2023-04-23] MEDS ORDERED: MORPHINE 2 MG/ML SYR IV PRN (21:00)
[2023-04-23] MEDS ORDERED: ASPIRIN 81 MG CHEWABLE TABLET ONE (22:40)
[2023-04-23] MEDS ORDERED: KCL 20 MEQ/100 mL IVPB 100 ML IV ONE (22:41)
[2023-04-23] MEDS ORDERED: POTASSIUM 25 MEQ EFFERV TAB ONE (22:41)
[2023-04-23] MEDS ORDERED: NA CHLORIDE 0.9% 250 ML ONE (22:41)
[2023-04-23] MEDS: SPIRONOLACTONE 25 MG TABLET PO SCH (23:04)
[2023-04-23] MEDS ORDERED: ALPRAZOLAM 0.5 MG TABLET PO ONE (23:42)
[2023-04-23] MEDS ORDERED: KCL 20 MEQ/100 mL IVPB 20 MEQ/100 ML BAG IV SCH (23:45)
[2023-04-23] MEDS ORDERED: KCL 20 MEQ/100 mL IVPB 20 MEQ/100 ML BAG IV ONE (23:45)
[2023-04-24 03:02] LABS: Absolute Lymphocytes (CBC) 3.1 K/uL (0.7-4.9); Hematocrit 34.3 % (36.0-45.0); Lymphocytes % 37.3 % (15.3-44.8); MCV 77.9 fL (80-100); MPV 7.9 fL (7.6-11.3); Platelets 328 thou/uL (152-406)
[2023-04-24 03:31] LABS: Bilirubin Total 0.5 mg/dL (0.2-1.0); Protein, Total 6.8 g/dL (6.4-8.2)
[2023-04-24 03:32] LABS: Potassium 2.6 mEq/L (3.5-5.1)
--- NOTE | 2023-04-24 04:44 | P.HP ---
Certification for Inpatient Patient admitted to: Observation With expected LOS: <2 Midnights Patient will require the following post-hospital care: None Practitioner: I am a practitioner with admitting privileges, knowledge of patient current condition, hospital course, and medical plan of care. Services: Services provided to patient in accordance with Admission requirements found in Title 42 Section 412.3 of the Code of Federal Regulations Patient History Date of Service: 04/23/23 Reason for admission: Chest pain rule out acute coronary syndrome History of Present Illness: Patient is a 63-year-old female who comes into the hospital with chest discomfort. Pain was mainly in the sternal region with radiation down to the left shoulder. Patient apparently was here in the hospital about a week and a half ago. At that time, patient was referred to follow-up with endocrinology at [place]. Patient was also scheduled to follow-up with PCP, Dr. Derek Lanza. However, patient has not been able to make her appointments. Patient comes into the emergency room on this occasion with chest discomfort. Patient was seen in the ER, and labs showed hypokalemia with a metabolic alkalosis consistent with hyperaldosteronism. Will also check a cortisol level and metanephrines. Patient had a CT scan on last admission with large adrenal mass. At this time, patient will be admitted to the hospital for further workup and further evaluation. Allergies Unable to Assess Allergy (Unverified 04/23/23 22:15) - Past Medical/Surgical History -: Adrenal mass -: Hypertension Past Surgical History: Patient denies surgical history - Family History Father Family History: Reviewed- Non-Contributory - Social History Smoking Status: Former smoker Smoking therapy provided: No Alcohol use: No Review of Systems 10-point ROS is otherwise unremarkable Physical Examination - Vital Signs Temperature: 96.7 F Blood Pressure: 183/109 Pulse: 84 Respirations: 17 Pulse Ox (%): 93 - Physical Exam General: Alert, In no apparent distress, Oriented x3 HEENT: Atraumatic, PERRLA, Mucous membr. moist/pink, EOMI, Sclerae nonicteric Neck: Supple, 2+ carotid pulse no bruit, No LAD, Without JVD or thyroid abnormality Respiratory: Clear to auscultation bilaterally, Normal air movement Cardiovascular: Regular rate/rhythm, Normal S1 S2, No murmurs Gastrointestinal: Normal bowel sounds, Soft and benign, Non-distended, No tenderness Musculoskeletal: No clubbing, No swelling, No tenderness Integumentary: No rashes, No significant lesion, No tenderness/swelling, No warmth Neurological: Normal gait, Normal speech, Normal strength at 5/5 x4 extr, Normal tone, Normal affect Lymphatics: No axilla or inguinal lymphadenopathy - Studies Laboratory Data (last 24 hrs) 04/23/23 04/23/23 19:30 19:30 WBC 9.30 Hgb 12.3 Hct 36.8 Plt Count 377 Sodium 140 Potassium 2.4 L* BUN 17 Creatinine 0.87 Glucose 108 H Magnesium 1.7 Total Bilirubin 0.3 AST 9 L ALT 30 Alkaline Phosphatase 127 H Assessment & Plan - Problems (Diagnosis) (1) Chest pain, rule out acute myocardial infarction Current Visit: Yes Status: Acute (2) Secondary hypertension Current Visit: Yes Status: Acute (3) Hyperaldosteronism Current Visit: Yes Status: Acute (4) Anxiety disorder Current Visit: Yes Status: Acute - Plan Plan: 1. Chest pain rule out acute coronary syndrome; serial troponins and EKG. Cardiology consultation and echocardiogram. If her workup is negative then she can follow-up as an outpatient for further intervention. 2. Patient with adrenal mass with hypokalemia and metabolic alkalosis; most likely concern would be hyperaldosteronism. Will go ahead and check additional labs to make sure these are normal. At this time patient is doing well clinically and her anxiety is controlled. We have urine metanephrines pending along with urine thyroid studies. At this time, patient will be admitted for observation. Discharge Plan: Home Plan to discharge in: 24 Hours - Advance Directives Does patient have a Living Will: No Does patient have a Durable POA for Healthcare: No - Code Status/Comfort Care Code Status Assessed: Yes Code Status: Full Code Critical Care: No Time Spent Managing PTS Care (In Minutes): 45
[2023-04-24] MEDS: KCL 20 MEQ/100 mL IVPB 20 MEQ/100 ML BAG IV SCH ×2 (04:50→06:30)
--- NOTE | 2023-04-24 04:50 | P.DS ---
Discharge Date: 04/24/23 Disposition: ROUTINE DISCHARGE Discharge Condition: GOOD Reason for Admission: Chest pain rule out acute coronary syndrome Consultations: Cardiology Nephrology - Problems (1) Chest pain, rule out acute myocardial infarction Current Visit: Yes Status: Acute (2) Secondary hypertension Current Visit: Yes Status: Acute (3) Hyperaldosteronism Current Visit: Yes Status: Acute (4) Anxiety disorder Current Visit: Yes Status: Acute Brief History of Present Illness: Patient is a 63-year-old female who comes into the hospital with chest discomfort. Pain was mainly in the sternal region with radiation down to the left shoulder. Patient apparently was here in the hospital about a week and a half ago. At that time, patient was referred to follow-up with endocrinology at [place]. Patient was also scheduled to follow-up with PCP, Dr. Derek Lanza. However, patient has not been able to make her appointments. Patient comes into the emergency room on this occasion with chest discomfort. Patient was seen in the ER, and labs showed hypokalemia with a metabolic alkalosis consistent with hyperaldosteronism. Will also check a cortisol level and metanephrines. Patient had a CT scan on last admission with large adrenal mass. At this time, patient will be admitted to the hospital for further workup and further evaluation. Hospital Course: Patient has done well during hospitalization. Clinically doing better. Hormone levels obtained for adrenal lesion. Most likely culprit for patient's adrenal mass is elevated aldosterone levels with the severe hypokalemia and metabolic alkalosis. At this time patient is clinically doing well. Patient will be admitted for observation. Will treat patient with Aldactone and doxazosin. Anticipate discharge in the morning. Vital Signs/Physical Exam: Temp Pulse Resp BP Pulse Ox 96.7 F L 84 17 183/109 H 93 04/24/23 04:44 04/24/23 04:44 04/24/23 04:44 04/24/23 04:44 04/24/23 04:44 General: Alert, In no apparent distress, Oriented x3 Laboratory Data at Discharge: WBC 8.20 thou/uL (4.3-10.9) 04/24/23 02:38 Hgb 11.7 g/dL (12.0-15.0) L 04/24/23 02:38 Hct 34.3 % (36.0-45.0) L 04/24/23 02:38 Plt Count 328 thou/uL (152-406) 04/24/23 02:38 Sodium 142 mEq/L (136-145) 04/24/23 02:38 Potassium 2.6 mEq/L (3.5-5.1) L* 04/24/23 02:38 BUN 16 mg/dL (7-18) 04/24/23 02:38 Creatinine 0.65 mg/dL (0.55-1.02) 04/24/23 02:38 Glucose 126 mg/dL (74-106) H 04/24/23 02:38 Magnesium 1.7 mg/dL (1.6-2.4) 04/23/23 19:30 Total Bilirubin 0.5 mg/dL (0.2-1.0) 04/24/23 02:38 AST 9 U/L (15-37) L 04/24/23 02:38 ALT 24 U/L (13-56) 04/24/23 02:38 Alkaline Phosphatase 108 U/L (45-117) 04/24/23 02:38 Home Medications: Atorvastatin Calcium [Lipitor*] DAILY 04/24/23 Buspirone HCl DAILY 04/24/23 Furosemide PO DAILY 04/24/23 Losartan Potassium DAILY 04/24/23 Magnesium Oxide DAILY 04/24/23 Metoprolol Tartrate [Lopressor*] TID 04/24/23 Potassium Chloride DAILY 04/24/23 Solifenacin [Vesicare*] DAILY 04/24/23 Physician Discharge Instructions: -DC IV and DC home -Follow-up with PCP in 1 to 2 weeks -Follow-up with Endocrinology in 1 to 2 weeks -Please call Dr. Muse at [phone] if any questions regarding hospital stay -Please call nursing station at [phone] if any nursing or medication questions -Return to the emergency room if symptoms worsen
[2023-04-24] MEDS ORDERED: NA CHLORIDE 0.9% 500 ML ONE (04:59)
[2023-04-24] MEDS ORDERED: METOPROLOL TARTRATE 5 MG/5 ML INJ IV STA (05:36)
[2023-04-24] MEDS ORDERED: cloNIDine HCL 0.1 MG TAB PO ONE (05:36)
[2023-04-24 05:38] VITALS: BMI 34.7
[2023-04-24] MEDS ORDERED: METOPROLOL TAR 25 MG TAB PO SCH (06:00)
[2023-04-24] MEDS ORDERED: POTASSIUM 25 MEQ EFFERV TAB PO ONE (08:00)
[2023-04-24] MEDS: SPIRONOLACTONE 25 MG TABLET PO SCH ×2 (08:59→21:03)
[2023-04-24] MEDS: DOXAZOSIN 2 MG TAB PO SCH ×3 (09:00→21:00)
--- NOTE | 2023-04-24 13:08 | P.PN ---
Subjective Date of Service: 04/24/23 Chief Complaint: Chest pain rule out acute coronary syndrome Pt is resting comfortably in bed. She complains of not feeling well. Her BP is elevated. Waiting for Aldosterone and metanephrine labs. Pt will follow up with Endocrinology on outpt. No other complaints. Review of Systems 10-point ROS is otherwise unremarkable General: Unremarkable Eyes: Unremarkable ENT: Unremarkable Respiratory: SOB with Excertion Cardiovascular: Unremarkable Gastrointestinal: Unremarkable Genitourinary: Unremarkable Musculoskeletal: Unremarkable Integumentary: Unremarkable Neurological: Unremarkable Physical Examination - Vital Signs Temperature: 96.7 F Blood Pressure: 186/105 Pulse: 86 Respirations: 17 Pulse Ox (%): 93 - Physical Exam General: In no apparent distress, Oriented x3, Cooperative HEENT: Atraumatic, Normocephalic, PERRLA Neck: Supple, 2+ carotid pulse no bruit Respiratory: Clear to auscultation bilaterally, Normal air movement Cardiovascular: No edema, Normal pulses, Normal S1 S2 Capillary refill: <2 Seconds Gastrointestinal: Normal bowel sounds, Soft and benign, No ascites, No tenderness Musculoskeletal: No clubbing, No swelling Integumentary: No rashes, No breakdown Neurological: Normal gait, Normal speech - Studies Laboratory Data (last 24 hrs) 04/23/23 04/23/23 19:30 19:30 WBC 9.30 Hgb 12.3 Hct 36.8 Plt Count 377 Sodium 140 Potassium 2.4 L* BUN 17 Creatinine 0.87 Glucose 108 H Magnesium 1.7 Total Bilirubin 0.3 AST 9 L ALT 30 Alkaline Phosphatase 127 H Assessment And Plan - Plan Chest pain: Will rule out acute coronary syndrome. trend troponin Q6h and follow up wEKG. Consulted Cardiology. Will follow up Echo. Pt will need outpt follow up with a Radio Electrician if the cardiac work up is negative. Hx of adrenal mass with hypokalemia and metabolic alkalosis: Thi si concerning for hyperaldosteronism. Will follow up aldosterone level. Cortisol is within normal limit ( 17.39). Hypertensive Urgency; Will r/o pheochromocytoma. Will follow up metanephrine level. Continue BP regimen. Hypokalemia: K is 2.6. Will replete with IV KCL. Will chek mag level. DVT ppx: SCD Discharge Plan: Home Discharge Plan: Home - Code Status/Comfort Care Code Status Assessed: Yes Code Status: Full Code
[2023-04-24] MEDS ORDERED: POTASSIUM CL 40 MEQ in NA CHLORIDE 0.9% 500 ML IV SCH ×2 (14:00→21:00)
[2023-04-24] MEDS: ALPRAZOLAM 0.5 MG TABLET PO PRN (21:04)
[2023-04-25 02:49] LABS: Absolute Lymphocytes (CBC) 2.3 K/uL (0.7-4.9); Hematocrit 32.9 % (36.0-45.0); Lymphocytes % 38.4 % (15.3-44.8); MCV 78.5 fL (80-100); MPV 8.3 fL (7.6-11.3); Platelets 280 thou/uL (152-406); RBC Red Blood Cell Count 4.19 M/uL (3.86-4.86)
[2023-04-25 02:57] LABS: Potassium 3.3 mEq/L (3.5-5.1)
[2023-04-25] MEDS ORDERED: METOPROLOL TARTRATE 5 MG/5 ML INJ IV STA (05:43)
[2023-04-25] MEDS ORDERED: METOPROLOL TAR 25 MG TAB PO SCH ×2 (06:00→18:00)
[2023-04-25] MEDS: DOXAZOSIN 2 MG TAB PO SCH ×2 (09:11→22:09)
[2023-04-25] MEDS: SPIRONOLACTONE 25 MG TABLET PO SCH ×2 (09:11→22:09)
[2023-04-25] MEDS: POTASSIUM CL 40 MEQ in NA CHLORIDE 0.9% 500 ML IV SCH ×2 (09:13→14:20)
--- NOTE | 2023-04-25 11:01 | P.PN ---
Subjective Date of Service: 04/25/23 Chief Complaint: Chest pain rule out acute coronary syndrome Pt is resting comfortably in bed. She is feeling better this am. Her BP has improved. Waiting for Aldosterone and metanephrine labs. Pt will follow up with Endocrinology on outpt. No other complaints. Review of Systems 10-point ROS is otherwise unremarkable Physical Examination - Vital Signs Temperature: 97.9 F Blood Pressure: 145/95 Pulse: 100 Respirations: 18 Pulse Ox (%): 93 - Physical Exam General: In no apparent distress, Oriented x3, Cooperative HEENT: Atraumatic, Normocephalic, PERRLA Neck: Supple, 2+ carotid pulse no bruit, No Thyromegaly Respiratory: Clear to auscultation bilaterally, Normal air movement Cardiovascular: No edema, Normal pulses, Normal S1 S2 Capillary refill: <2 Seconds Gastrointestinal: Normal bowel sounds, Soft and benign, Non-distended Musculoskeletal: No clubbing, No swelling Integumentary: No rashes, No breakdown Neurological: Normal gait, Normal speech, Normal tone, Sensation intact Lymphatics: No axilla or inguinal lymphadenopathy Assessment And Plan - Plan Chest pain: Pt denies any chest pain. Troponin is negative. Consulted Cardiology. Will follow up Echo and NM stress test. Pt will need outpt follow up with a Card Folder. Hx of adrenal mass with hypokalemia and metabolic alkalosis: This is concerning for hyperaldosteronism. Will follow up aldosterone level. Cortisol is within normal limit ( 17.39). Hypertensive Urgency: Improved. Will r/o pheochromocytoma. Will follow up metanephrine level. Continue BP regimen. Hypokalemia: K is 3.3<- 2.6. Will replete with IV KCL. Will check mag level. DVT ppx: SCD Discharge Plan: Will dc home once cleared by Cardiology
--- NOTE | 2023-04-25 13:08 | ECHO ---
HEIGHT: 5 ft 2 in WEIGHT: 190 lb 0 oz DATE OF STUDY: 04/24/[address]: Ankit Muse MD 2-DIMENSIONAL: YES M.MODE: YES DOPPLER: YES COLOR FLOW: YES TDS: PORTABLE: YES DEFINITY: BUBBLE STUDY: DIAGNOSIS: CHEST PAIN, RULE OUT ACUTE CORONARY SYNDROME CARDIAC HISTORY: CATHERIZATION: NO SURGERY: NO PROSTHETIC VALVE: NO PACEMAKER: NO MEASUREMENTS (cm) DIASTOLIC (NORMALS) SYSTOLIC (NORMALS) IVSd 1.2 (0.6-1.2) LA Diam 3.0 (1.9-4.0) LVEF 60% LVIDd 4.7 (3.5-5.7) LVIDs 3.2 (2.0-3.5) %FS 32% LVPWd 1.2 (0.6-1.2) Ao Diam 2.6 (2.0-3.7) 2 DIMENSIONAL ASSESSMENT: RIGHT ATRIUM: NORMAL LEFT ATRIUM: NORMAL RIGHT VENTRICLE: NORMAL LEFT VENTRICLE: NORMAL TRICUSPID VALVE: MILD TRICUSPID REGURGITATION MITRAL VALVE: MILD MITRAL REGURGITATION PULMONIC VALVE: NORMAL AORTIC VALVE: NORMAL PERICARDIAL EFFUSION: NONE AORTIC ROOT: NORMAL LEFT VENTRICULAR WALL MOTION: NORMAL DOPPLER/COLOR FLOW: SEE BELOW COMMENTS: 1. NORMAL LEFT VENTRICULAR EJECTION FRACTION 55-60% WITH NORMAL WALL MOTION 2. DIASTOLIC DYFUNCTION 3. MILD MITRAL REGURGITATION 4. MILD TRICUSPID REGURGITATION TECHNOLOGIST: YESSICA MAJOR
--- NOTE | 2023-04-25 13:34 | EKG ---
Test Date: 2023-04-23 Test Time: 19:16:35 Machine Operations Supervisor: MAGY MEASUREMENT RESULTS: Intervals: Rate: 78 MI: QRSD: 92 QT: 412 QTc: 469 [place]: P: MI: QRS: 2 T: -3 INTERPRETIVE STATEMENTS: Atrial fibrillation Voltage criteria for left ventricular hypertrophy Nonspecific ST and T wave abnormality, probably digitalis effect Abnormal ECG Compared to ECG 04/17/2023 21:00:54 Left ventricular hypertrophy now present ST (T wave) deviation now present Ventricular premature complex(es) no longer present Electronically Signed On 04-25-23 13:28:03 HEEL BUILDER by Avery Conn
--- NOTE | 2023-04-25 18:08 | P.PN ---
Subjective Date of Service: 04/25/23 Chief Complaint: Chest pain rule out acute coronary syndrome Subjective: Tolerating diet, Other (improving, no c/o chest pain but reports shortness of breath) Review of Systems 10-point ROS is otherwise unremarkable Respiratory: Cough, Shortness of Breath, SOB with Excertion Cardiovascular: As per HPI Genitourinary: Other Physical Examination - Vital Signs Temperature: 97.5 F Blood Pressure: 149/86 Pulse: 111 Respirations: 20 Pulse Ox (%): 96 - Physical Exam General: Alert, Oriented x3 HEENT: Atraumatic, Normocephalic Neck: Supple, 2+ carotid pulse no bruit, JVD not distended Respiratory: Clear to auscultation bilaterally Cardiovascular: No edema, Normal pulses, Regular rate/rhythm Capillary refill: <2 Seconds Gastrointestinal: Normal bowel sounds, Soft and benign Musculoskeletal: No clubbing, No swelling Integumentary: No rashes Neurological: Normal speech Lymphatics: No axilla or inguinal lymphadenopathy External genitalia: Deferred Assessment And Plan - Current Problems (Diagnosis) (1) Chest pain, atypical Current Visit: Yes Status: Acute Plan: d-dimer negative, no troponin elevations, monitor electrolytes GI prophylaxis ECHO to evalutate function/EF May need stress test depending on ECHO results and pt's symptoms
[2023-04-25] MEDS: METOPROLOL TAR 50 MG TAB PO SCH (22:08)
[2023-04-26 02:12] LABS: Absolute Lymphocytes (CBC) 2.4 K/uL (0.7-4.9); Hematocrit 32.1 % (36.0-45.0); Lymphocytes % 36.9 % (15.3-44.8); MCV 79.6 fL (80-100); MPV 8.4 fL (7.6-11.3); Platelets 297 thou/uL (152-406); RBC Red Blood Cell Count 4.02 M/uL (3.86-4.86)
[2023-04-26 02:26] LABS: Potassium 3.4 mEq/L (3.5-5.1)
[2023-04-26 05:22] VITALS: O2SAT 99
[2023-04-26] MEDS ORDERED: MAGNESIUM SULFATE 1 gm IVPB 1 GM/100 ML BAG IV ONE (08:00)
[2023-04-26] MEDS: METOPROLOL TAR 50 MG TAB PO SCH (08:19)
[2023-04-26] MEDS ORDERED: REGADENOSON 0.4 MG/5 ML SYR IV ONE (09:04)
[2023-04-26] MEDS: SPIRONOLACTONE 25 MG TABLET PO SCH (11:30)
[2023-04-26] MEDS: DOXAZOSIN 2 MG TAB PO SCH (11:31)
[2023-04-26] MEDS: ALPRAZOLAM 0.5 MG TABLET PO PRN (11:31)
--- NOTE | 2023-04-26 12:02 | RAD REPORT ---
EXAM DESCRIPTION: NM - Rest Stress Cardiac Imaging - 04/26/2023 9:55 am CLINICAL HISTORY: CP Chest pain. COMPARISON: No comparisons TECHNIQUE: The patient was administered approximately 10.5 mCi of Tc 99m Sestamibi prior to resting SPECT imaging of the heart. The patient was then administered approximately 30.6 mCi of Tc 99m Sestam ibi following exercise or pharmacologic stress. Multiplanar SPECT images were reviewed. FINDINGS: No stress induced ischemic defect is seen to suggest stress induced ischemia. Mild fixed u ptake attenuation at the junction of the inferior and lateral reilly, likely artifactual, related to s planchnic uptake No definitive fixed defect is seen to suggest hibernating myocardium or scarred myoc ardium. Questionable small region of fixed attenuation of uptake at the upper septum and near the ape x, may represent artifact or small region of prior infarct. The end diastolic volume is 109 ml, the end systolic volume is 68 ml, and the ejection fraction is 37 %. IMPRESSION: No evidence of stress induced ischemia. Questionable small region of fixed attenuation of uptake near the apex and at the upper septal wall m ay represent infarct or small region of prior infarct. Reduced left ventricular ejection fraction, 37%.
--- NOTE | 2023-04-26 12:15 | P.PN ---
Subjective Date of Service: 04/26/23 Chief Complaint: Chest pain rule out acute coronary syndrome Pt is resting comfortably in bed. She is feeling better this am. Her BP has improved. Cardiology did NM stress test which showed no evidence of stress induced ischemia. Echo shows EF 55 - 60%. Waiting for Aldosterone and me tanephrine labs. Pt will follow up with Endocrinology on outpt. No other complaints. Review of Systems 10-point ROS is otherwise unremarkable General: Unremarkable Eyes: Unremarkable ENT: Unremarkable Respiratory: Unremarkable Cardiovascular: Unremarkable Gastrointestinal: Unremarkable Genitourinary: Unremarkable Musculoskeletal: Unremarkable Integumentary: Unremarkable Neurological: Unremarkable Lymphatics: Unremarkable Physical Examination - Vital Signs Temperature: 97.3 F Blood Pressure: 161/98 Pulse: 102 Respirations: 16 Pulse Ox (%): 94 - Physical Exam General: Alert, In no apparent distress, Oriented x3, Cooperative HEENT: Atraumatic, Normocephalic, PERRLA Neck: Supple, 2+ carotid pulse no bruit Respiratory: Clear to auscultation bilaterally, Normal air movement Cardiovascular: No edema, Normal pulses, Regular rate/rhythm, Normal S1 S2 Capillary refill: <2 Seconds Gastrointestinal: Normal bowel sounds, Soft and benign, Non-distended Musculoskeletal: No clubbing, No swelling Integumentary: No rashes, No breakdown Neurological: Normal gait, Normal speech, Normal strength at 5/5 x4 extr Lymphatics: No axilla or inguinal lymphadenopathy - Studies Laboratory Data (last 24 hrs) 04/26/23 04/26/23 04/25/23 01:31 01:31 12:30 WBC 6.60 Hgb 10.6 L Hct 32.1 L Plt Count 297 Sodium 141 Potassium 3.4 L BUN 17 Creatinine 0.70 Glucose 103 Magnesium 1.7 Assessment And Plan - Plan Chest pain: Pt denies any chest pain. Troponin is negative. Consulted Cardiology. Echo shows EF 55 - 60% and NM stress test is negative for stress induced ischemia. Pt will need outpt follow up with a [employer] Specialist. Hx of adrenal mass with hypokalemia and metabolic alkalosis: This is concerning for hyperaldosteronism. Will follow up aldosterone level. Cortisol is within normal limit ( 17.39). Hypertensive Urgency: Improved. Will r/o pheochromocytoma. Will follow up metanephrine level. Continue BP regimen. Hypokalemia: K is 3.4<- 3.3<- 2.6. Will replete with IV KCL. Will check mag level. DVT ppx: SCD Discharge Plan: Will dc home once cleared by Cardiology
--- NOTE | 2023-04-26 16:40 | P.DS ---
Admission Date: 04/26/23 Discharge Date: 04/26/23 Disposition: ROUTINE DISCHARGE Discharge Condition: GOOD Reason for Admission: Chest pain rule out acute coronary syndrome Consultations: Cardiology Brief History of Present Illness: Patient is a 63-year-old female who comes into the hospital with chest discomfort. Pain was mainly in the sternal region with radiation down to the left shoulder. Patient apparently was here in the hospital about a week and a half ago. At that time, patient was referred to follow-up with endocrinology at [place]. Patient was also scheduled to follow-up with PCP, Dr. Derek Lanza. However, patient has not been able to make her appointments. Patient comes into the emergency room on this occasion with chest discomfort. Patient was seen in the ER, and labs showed hypokalemia with a metabolic alkalosis consistent with hyperaldosteronism. Will also check a cortisol level and metanephrines. Patient had a CT scan on last admission with large adrenal mass. At this time, patient will be admitted to the hospital for further workup and further evaluation. Hospital Course: Patient is a 63-year-old female who presented withe chest discomfort. Of note, pt was admitted in this hospital about 2 weeks ago and was advised to follow up with her Senior Software Architect on outpt. She was not able to make the appointment. During this admission, labs showed hypokalemia with a metabolic alkalosis consistent with hyperaldosteronism. Cortisol level was normal. We ordered aldosterone and metanephrines labs that are stil pending. CT abd /pelvis from last admission showed a large adrenal mass. We admitted pt for the hypertensive urgency and chest pain. We optimized BP regimen and controlled BP with cadura, metoprolol and spironolactone. Cardiology did Echo which showed EF of 55 - 60% with diastolic dysfunction. NM stress test was negative for stress induced ischemia. We repleted electrolytes and continued home med for other chronic medical problems. Pt was advised to be compliant with home med s and outpt appointments. Pt was in NAD prior to discharge. Vital Signs/Physical Exam: Temp Pulse Resp BP Pulse Ox 97.3 F 102 H 16 161/98 H 94 04/26/23 12:18 04/26/23 12:18 04/26/23 12:18 04/26/23 12:18 04/26/23 12:18 Laboratory Data at Discharge: WBC 6.60 thou/uL (4.3-10.9) 04/26/23 01:31 Hgb 10.6 g/dL (12.0-15.0) L 04/26/23 01:31 Hct 32.1 % (36.0-45.0) L 04/26/23 01:31 Plt Count 297 thou/uL (152-406) 04/26/23 01:31 Sodium 141 mEq/L (136-145) 04/26/23 01:31 Potassium 3.4 mEq/L (3.5-5.1) L 04/26/23 01:31 BUN 17 mg/dL (7-18) 04/26/23 01:31 Creatinine 0.70 mg/dL (0.55-1.02) 04/26/23 01:31 Glucose 103 mg/dL (74-106) 04/26/23 01:31 Magnesium 1.7 mg/dL (1.6-2.4) 04/25/23 12:30 Total Bilirubin 0.5 mg/dL (0.2-1.0) 04/24/23 02:38 AST 9 U/L (15-37) L 04/24/23 02:38 ALT 24 U/L (13-56) 04/24/23 02:38 Alkaline Phosphatase 108 U/L (45-117) 04/24/23 02:38 Home Medications: Atorvastatin Calcium [Lipitor*] DAILY 04/24/23 Buspirone HCl DAILY 04/24/23 Furosemide PO DAILY 04/24/23 Magnesium Oxide DAILY 04/24/23 Potassium Chloride DAILY 04/24/23 Solifenacin [Vesicare*] DAILY 04/24/23 Doxazosin [Cardura*] 1 mg PO BID 30 Days #60 tab 04/26/23 Metoprolol Tartrate [Lopressor*] 50 mg PO BID 30 Days #60 tab 04/26/23 Spironolactone [Aldactone*] 50 mg PO BID 30 Days #60 tab 04/26/23 New Medications: Spironolactone [Aldactone*] 50 mg PO BID 30 Days #60 tab Doxazosin [Cardura*] 1 mg PO BID 30 Days #60 tab Metoprolol Tartrate [Lopressor*] 50 mg PO BID 30 Days #60 tab Physician Discharge Instructions: -DC IV and DC home -Follow-up with PCP in 1 to 2 weeks -Follow-up with Endocrinology in 1 to 2 weeks -Please call Dr. Muse at [phone] if any questions regarding hospital stay -Please call nursing station at [phone] if any nursing or medication questions -Return to the emergency room if symptoms worsen Followup: Avery Conn MD [ACTIVE - CAN ADMIT] -
[2023-04-26 17:01] VITALS: BP 144/98; TEMP 97.5
--- NOTE | 2023-04-27 08:29 | TREADPHA ---
DX: CHEST PAIN, RULE OUT ACUTE CORONARY SYNDROME, ATRIAL FIBRILLATION Date of Study: 04/26/2023 Ht: 5' 2 " Wt: 190 lb 0 oz Consulting Physician: CALOS MEDICATIONS: TYLENOL, XANAX, CARDURA, LOPRESSOR, MORPHINE, ZOFRAN, ALDACTONE HISTORY: ATRIAL FIBRILLATION, SLEEP APNEA, HYPERTENSION, NON SMOKER, NO ALCOHOL USE, NO DRUG USE. PHYSICIAL EXAMINATION: RESTING B.P.: 138/103 RESTING H.R.: 102-117 RESTING EKG: ATRIAL FIBRILLATION PROTOCOL: PHARMACOLOGIC EXERCISE TIME: 3:30 B.P. AT PEAK STRESS: 136/77 IMPRESSION: LEXISCAN INJECTED. CARDIOLITE INJECTED - SEE NUCLEAR MEDICINE REPORT. NO CHEST PAIN. COMPLAINTS OF SHORTNESS OF BREATH. NO VENTRICULAR TACHYCARDIA, NO SUPRAVENTRICULAR TACHYCARDIA. ATRIAL FIBRILLATION WITH RAPID VENTRICULAR RESPONSE, PREMATURE VENTRICULAR COMPLEXES NOTED. NO ELECTROCARDIOGRAM CHANGES OF ISCHEMIA WITH LEXISCAN.
== END 2023-04-26 17:53 | disposition home or self-care (01) | DRG 644 ==
LOC: ER 18:40 → ERHOLD 21:00 → 2ND 21:37 → OBSVTOIN 04-26 09:54
PROVIDERS: ADMIT Hospitalist; ATTEND Hospitalist
DX: E26.9 Hyperaldosteronism, unspecified (principal); E87.3 Alkalosis; E87.6 Hypokalemia; I10 Essential (primary) hypertension; F32.A Depression, unspecified; I48.91 Unspecified atrial fibrillation; F41.9 Anxiety disorder, unspecified; E27.8 Other specified disorders of adrenal gland; I25.10 Atherosclerotic heart disease of native coronary artery without angina pectoris; Z87.891 Personal history of nicotine dependence
CPT/HCPCS: 36415; 71045; 78452; 80048; 80053; 80076; 82088; 82533; 83735; 84244; 84484; 85025; 85379; 93005; 93017; 93306; 96374; 99285; A9500; G0378; J2785; J3475; J3480; J7040; J7050

== ENCOUNTER 2023-05-01 16:15 | Emergency (ER) | payer OTHER ==
--- NOTE | 2023-05-01 17:17 | RAD REPORT ---
EXAM DESCRIPTION: [place] Single View05/01/2023 5:09 pm CLINICAL HISTORY: Chest pain COMPARISON: March 2023 FINDINGS: The lungs appear clear of acute infiltrate. The heart is mildly to moderately enlarged IMPRESSION: No acute abnormalities displayed
[2023-05-01 19:50] LABS: Hematocrit 36.3 % (36.0-45.0); Lymphocytes % 37.2 % (15.3-44.8); MCV 78.7 fL (80-100); MPV 8.1 fL (7.6-11.3); Platelets 357 thou/uL (152-406); RBC Red Blood Cell Count 4.61 M/uL (3.86-4.86)
[2023-05-01 19:53] LABS: Protime INR 1.36
[2023-05-01 21:00] LABS: Albumin 3.2 g/dL (3.4-5.0); Bilirubin Direct 0.1 mg/dL (0-0.2); Bilirubin Indirect, Calculated 0.2 mg/dL (0.2-0.8); Bilirubin Total 0.3 mg/dL (0.2-1.0); Magnesium 1.7 mg/dL (1.6-2.4); Potassium 2.7 mEq/L (3.5-5.1); Protein, Total 7.6 g/dL (6.4-8.2); Troponin High Sensitivity 9.3 pg/mL (<58.9)
[2023-05-01] MEDS ORDERED: ALBUTEROL 2.5 MG/3 ML NEB SOL ONE (21:29)
[2023-05-01] MEDS ORDERED: IPRATROPIUM BROM 0.5MG/2.5ML ONE (21:29)
[2023-05-01] MEDS ORDERED: NA CHLORIDE 0.9% 1,000 ML ONE (21:57)
[2023-05-01] MEDS ORDERED: KCL 20 MEQ/100 mL IVPB 100 ML IV ONE (21:57)
[2023-05-01] MEDS ORDERED: POTASSIUM 25 MEQ EFFERV TAB ONE (21:57)
[2023-05-01] MEDS ORDERED: LORAZEPAM 1 MG TABLET ONE (23:50)
--- NOTE | 2023-05-02 00:53 | ER ---
Nurse's Notes [facility] Name: Donny Causey Age: 63 yrs Sex: Female : 1960 Arrival Date: 05/01/2023 Time: 16:15 Bed 14 Private MD: Diagnosis: Generalized anxiety disorder;Major depressive disorder, recurrent, unspecified;Suicidal ideations;Shortness of breath Presentation: 05/01 16:26 Chief complaint: Patient states: Shortness of breath "that I have had for a long time" cm10 that got worse last night. Pt able to speak in complete sentences in triage. Coronavirus screen: Vaccine status: Patient reports receiving the 2nd dose of the covid vaccine. Client denies travel out of the [place] in the last 14 days. Ebola Screen: Patient denies travel to an Ebola-affected area in the 21 days before illness onset. No symptoms or risks identified at this time. Initial Sepsis Screen: Does the patient meet any 2 criteria? No. Patient's initial sepsis screen is negative. Does the patient have a suspected source of infection? No. Patient's initial sepsis screen is negative. Risk Assessment: Do you want to hurt yourself or someone else? Patient reports no desire to harm self or others. Onset of symptoms was May 01, 2023. 16:26 Method Of Arrival: Ambulatory cm10 16:26 Acuity: WENCESLAO 2 cm10 Historical: - Allergies: 16:28 No Known Allergies; cm10 - Home Meds: 05/02 01:25 spironolactone 25 mg Oral tablet 2 tabs 2 times per day [Active]; doxazosin 2 mg oral pf1 tablet .5 tab BID [Active]; metoprolol tartrate 25 mg oral tablet 3 tabs 2 times per day [Active]; Eliquis 5 mg oral tablet 1 tab 2 times per day [Active]; buspirone 5 mg Oral tablet 1 tab BID PRN [Active]; furosemide 40 mg Oral tablet 1 tab daily [Active]; losartan 25 mg oral tablet 1 tab daily [Active]; Lipitor 10 mg Oral tablet 1 tab every day at bedtime [Active]; - PMHx: 05/01 16:28 Anxiety; Atrial fibrillation; Cerebrovascular accident; coronary atherosclerosis; cm10 depressive disorder; Hypertensive disorder; - Immunization history:: Adult Immunizations unknown. - Social history:: Smoking status: Patient denies any tobacco usage or history of. Screenin:45 [facility] ED Fall Risk Assessment (Adult) History of falling in the last 3 months, cp4 including since admission No falls in past 3 months (0 pts) Confusion or Disorientation No (0 pts) Intoxicated or Sedated No (0 pts) Impaired Gait No (0 pts) Mobility Assist Device Used No (0 pt) Altered Elimination No (0 pt) Score/Fall Risk Level 0 - 2 = Low Risk Oriented to surroundings, Maintained a safe environment, Educated pt \\T\\ family on fall prevention, incl call for assistance when getting out of bed, Assessed \\T\\ reinforced patient's understanding of fall precautions, Provided non-skid footwear, Hourly rounding (assess needs \\T\\ fall precautionary measures) done. Abuse screen: Denies threats or abuse. Nutritional screening: No deficits noted. Tuberculosis screening: No symptoms or risk factors identified. Assessment: 19:45 General: Appears in no apparent distress. Behavior is calm, cooperative, appropriate cp4 for age. Pain: Denies pain. Cardiovascular: No deficits noted. Cardiovascular: Rhythm is regular. Respiratory: Airway is patent Respiratory effort is even, unlabored, Breath sounds are clear bilaterally. 21:11 Reassessment: Patient appears in no apparent distress at this time. Patient and/or tm6 family updated on plan of care and expected duration. Pain level reassessed. Patient is alert, oriented x 3, equal unlabored respirations, skin warm/dry/pink. 21:57 Reassessment: Patient appears in no apparent distress at this time. Patient and/or tm6 family updated on plan of care and expected duration. Pain level reassessed. Patient is alert, oriented x 3, equal unlabored respirations, skin warm/dry/pink. 22:54 Reassessment: Patient and/or family updated on plan of care and expected duration. Pain tm6 level reassessed. Patient is alert, oriented x 3, equal unlabored respirations, skin warm/dry/pink. Patient denies pain at this time. 05/02 00:11 Reassessment: Patient tearful. Patient stated earlier in the day she felt anxious and tm6 depressed and had thoughts of harming herself. Patient stated she does not currently wish to harm herself. JUAN Hoskins notified. 00:12 Reassessment: patient belongings collected and sent to security. tm6 00:12 Reassessment: patient placed in paper scrubs. Room cleaned for SI precautions. tm6 00:33 Reassessment: patient tearful. tm6 00:58 Reassessment: patient lying in bed. Patient no longer tearful. tm6 01:47 Reassessment: Patient appears in no apparent distress at this time. Patient and/or tm6 family updated on plan of care and expected duration. Pain level reassessed. Patient is alert, oriented x 3, equal unlabored respirations, skin warm/dry/pink. 02:47 Reassessment: Patient appears in no apparent distress at this time. Patient and/or tm6 family updated on plan of care and expected duration. Pain level reassessed. Patient is alert, oriented x 3, equal unlabored respirations, skin warm/dry/pink. 03:15 Reassessment: nurse to nurse report given to Jocelyne at [facility]. tm6 03:42 Reassessment: Patient appears in no apparent distress at this time. Patient and/or tm6 family updated on plan of care and expected duration. Pain level reassessed. Patient is alert, oriented x 3, equal unlabored respirations, skin warm/dry/pink. 04:07 Reassessment: patient heart rhythm afib with RVR. HR ranging from 99-150. MD notified. tm6 Cardiovascular: Rhythm is atrial fibrillation. 04:58 Reassessment: Patient appears in no apparent distress at this time. patient has eyes tm6 closed. 05:42 Reassessment: Patient appears in no apparent distress at this time. No changes from tm6 previously documented assessment. 06:18 Reassessment: Patient appears in no apparent distress at this time. No changes from tm6 previously documented assessment. 06:56 Reassessment: doc to doc still pending from [facility]. tm6 07:00 Reassessment: Patient appears in no apparent distress at this time. Patient and/or db family updated on plan of care and expected duration. Pain level reassessed. PT IS RESTING ASLEEP. NAD. RESPIRATIONS ARE EVEN AND UNLABORED. General: Appears in no apparent distress. comfortable, Behavior is calm, cooperative, quiet. 08:06 Reassessment: REPORT GIVEN TO CHARLES INMAN FROM [employer]. [phone] CALL db BACK NUMBER. DR. PRINCESS NEWELL IS ACCEPTING PHYSICIAN. ERIC HALE IS ACCEPTING INTAKE DIRECTOR. 08:50 Reassessment: PATIENT UNSURE IF SHE WANTS TO GO TO THE BEHAVIORAL FACILITY DUE TO db PERSONAL APPOINTMENT. NOTIFIED PROVIDER. PT CALLING FAMILY MEMBER. 09:10 Reassessment: PT SPOKE TO FAMILY MEMBER AND FAMILY MEMBER STATES WILL RESCHEDULE db APPOINTMENT. PT AGREED TO GO TO FACILITY. PT FAMILY STATES PT HAS NOT BEEN ABLE TO FUNCTION NORMAL DUE TO INCREASE IN DEPRESSION AND ANXIETY. 09:20 Reassessment: PATIENT SIGNED CONSENT FOR TRANSFER. db 09:37 Reassessment: LAB UPDATE GIVEN TO CHARLES INMAN FOR POTASSIUM. db 10:16 Reassessment: [facility] HERE FOR PATIENT TRANSPORT. db Psych: 00:29 Model Suicide Severity Screening:. Model Suicide Severity Screening: In the past tm6 month, have you wished you were or wished you could go to sleep and not wake up? Patient responds "yes." patient states she had thoughts of ending her life earlier in the day, but does not have these thoughts currently. Subjective: Patient's mood is sad, Delusions are denied, Hallucinations are denied Having thoughts of suicide. Denies suicidal plan. Patient stated she had thoughts of suicide earlier in the day, but does not currently have them. Objective: Patient is cooperative, Speech is normal, Affect is flat. Interventions: Removed personal items and placed in bag. Patient placed in hospital gown. Searched person for dangerous items. Urine collected and sent for urine drug test. Patient reassessed during use of restraints. Patient is physically safe. Safety Checks: Personal items have been removed. Door is open. No visitors are present at this time. Pt denies substance abuse. Commitment: Patient will be a voluntary commitment. 07:00 Model Suicide Severity Screening: In the past month, have you wished you were db or wished you could go to sleep and not wake up? Patient responds "yes." "In the past month, have you actually had any thoughts of killing yourself?" Patient responds "yes." Based off the client's response additional Model suicide severity screening questions to be further documented on paper forms. "In your lifetime, have you ever done anything, started to do anything, or prepared to do anything to end your life?" Patient responds "no.". Subjective: Patient's mood is sad, Delusions are denied, Hallucinations are denied Having thoughts of suicide. Denies suicidal plan. Objective: Patient is cooperative, Speech is normal. Interventions: Removed personal items and placed in bag. Patient placed in hospital gown. Searched person for dangerous items. PT IS IN ROOM AND IS SAFE. BELONGINGS ARE WITH SECURITY PER REPORT. PT IS IN BLUE GOWN AND HAS HOSPITAL FOREIGN DIPLOMAT SOCKS. Safety Checks: Personal items have been removed. Door is open. No visitors are present at this time. Pt denies substance abuse. Commitment: Patient will be a voluntary commitment. Vital Signs: 05/01 16:26 BP 125 / 88; Pulse 93; Resp 18; Temp 97.1; Pulse Ox 97% on R/A; Weight 89.81 kg; Height cm10 5 ft. 2 in. ; Pain 7/10; 20:07 BP 135 / 90; Pulse 89; Resp 18; Pulse Ox 95% ; cp4 20:53 BP 131 / 88; Pulse 68; Resp 18; Pulse Ox 95% ; cp4 21:11 BP 139 / 98; Pulse 66; Resp 15; Pulse Ox 95% ; Pain 0/10; tm6 21:56 BP 132 / 75; Pulse 82; Resp 14; Pulse Ox 96% on R/A; tm6 22:53 BP 127 / 87; Pulse 86; Resp 15; Pulse Ox 97% on R/A; tm6 23:58 BP 131 / 75; Pulse 84; Pulse Ox 93% ; tm6 05/02 00:32 BP 142 / 106; Pulse 90; Resp 18; Pulse Ox 99% on R/A; tm6 00:59 BP 148 / 105; Pulse 98; Pulse Ox 96% on R/A; tm6 01:47 BP 144 / 96; Pulse 87; Resp 19; Pulse Ox 94% ; Pain 0/10; tm6 03:42 BP 128 / 88; Pulse 94; Pulse Ox 92% on R/A; Pain 0/10; tm6 03:55 Pulse 140; Pulse Ox 88% on R/A; tm6 04:12 BP 127 / 89; Pulse 96; Pulse Ox 98% on 2 lpm NC; tm6 04:18 BP 118 / 83; Pulse 101; Pulse Ox 98% on 2 lpm NC; tm6 04:43 BP 102 / 76; Pulse 88; Pulse Ox 97% on R/A; tm6 05:41 BP 122 / 78; Pulse 79; Pulse Ox 99% on 2 lpm NC; tm6 06:18 BP 127 / 100; Pulse 100; Pulse Ox 92% on 2 lpm NC; tm6 07:00 BP 138 / 94; Pulse 92; Resp 16; Pulse Ox 100% on 2 lpm NC; db 07:30 BP 125 / 96; Pulse 78; Resp 18; Pulse Ox 97% on 2 lpm NC; db 09:00 BP 125 / 88; Pulse 86; Resp 16; Temp 97.8; Pulse Ox 98% on R/A; db 05/01 16:26 Body Mass Index 36.21 (89.81 kg, 157.48 cm) cm10 05/01 16:26 Pain Scale: Adult cm10 21:11 Pain Scale: Adult tm6 01:47 Pain Scale: Adult tm6 03:42 Pain Scale: Adult tm6 Vitals: 05/01 21:56 Cardiac Rhythm Assessment Atrial fibrillation. tm6 ED Course: 16:16 Patient arrived in ED. rg4 16:24 Danica Hanley PA-C is PHCP. sb4 16:24 Antione Douglass MD is Attending Physician. sb4 16:28 Triage completed. cm10 16:29 Arm band placed on Patient placed in waiting room. cm10 17:10 XRAY Chest (1 view) In Process Unspecified. EDMS 19:38 Fátima Nicole is Primary Nurse. cp4 19:38 Basic Metabolic Panel Sent. cp4 19:38 CBC with Diff Sent. cp4 19:38 LFT's Sent. cp4 19:38 Magnesium Sent. cp4 19:38 NT PRO-BNP Sent. cp4 19:38 PT-INR Sent. cp4 19:38 Troponin HS Sent. cp4 19:45 Bed in low position. Call light in reach. Side rails up X 1. cp4 19:45 No provider procedures requiring assistance completed. Inserted saline lock: 20 gauge cp4 in left antecubital area, using aseptic technique. Blood collected. 20:16 PHCP role handed off by Danica Hanley PA-C cp 20:16 Gato Wright PA is PHCP. cp 21:57 Provided Education on: need for potassium. Client placed on continuous cardiac and tm6 pulse oximetry monitoring. NIBP monitoring applied. media monitor on. Door closed. Noise minimized. Lights dimmed. Warm blanket given. 22:54 snack provided. tm6 05/02 00:49 Acetaminophen Sent. pf1 00:49 Basic Metabolic Panel Sent. pf1 00:49 ETOH Level Sent. pf1 00:49 PT-INR Sent. pf1 00:49 Ptt, Activated Sent. pf1 00:49 Salicylate Sent. pf1 00:49 Urine Drug Screen Sent. pf1 01:44 Faxed pt clinicals to the following facilities for placement; [facility], [address] 03:52 Attending Physician role handed off by Antione Douglass MD sp4 03:52 Manoj Diaz MD is Attending Physician. sp4 03:55 Oxygen administration via nasal cannula \\T\\ 2L/min. tm6 07:09 Report given to Jocelyne SOTO. tm6 08:12 Repeat lab(s) drawn. by tn, sent to lab. db 10:18 IV discontinued, intact, bleeding controlled, No redness/swelling at site. db Administered Medications: 05/01 21:54 Drug: Potassium PO Effervescent Tablet 50 mEq PO once; dissolve in 4 ounces of water or tm6 juice Route: PO; 22:50 Follow up: Response: No adverse reaction; Marked relief of symptoms pf1 05/02 01:51 Follow up: Response: No adverse reaction 6 05/01 21:54 Drug: Albuterol Inhalation 2.5 mg Inhalation once Route: Inhalation; tm6 22:50 Follow up: Response: No adverse reaction; Marked relief of symptoms pf1 05/02 01:51 Follow up: Response: No adverse reaction [facility] 05/01 21:54 Drug: Ipratropium Inhalation Aerosol 0.5 mg Inhalation once Route: Inhalation; tm6 22:50 Follow up: Response: No adverse reaction; Marked relief of symptoms pf1 05/02 01:51 Follow up: Response: No adverse reaction 6 05/01 21:54 Drug: Potassium Chloride IV 20 mEq IV at calculated rate once; administer over 1-2 tm6 hours Route: IV; Rate: calculated rate; Site: left antecubital; 05/02 00:00 Follow up: Response: No adverse reaction; IV Status: Completed infusion pf1 00:51 Follow up: Response: No adverse reaction; Marked relief of symptoms pf1 05/01 23:38 Drug: LORazepam PO 1 mg PO once Route: PO; tm6 12 00:30 Follow up: Response: No adverse reaction; Marked relief of symptoms pf1 01:51 Follow up: Response: No adverse reaction tm6 01:44 Drug: Potassium PO Effervescent Tablet 25 mEq PO once; dissolve in 4 ounces of water or tm6 juice Route: PO; 02:11 Follow up: Response: No adverse reaction; Marked relief of symptoms pf1 02:05 Drug: Zolpidem PO 10 mg PO once Route: PO; pf1 10:23 Follow up: Response: No adverse reaction db 04:05 Drug: Metoprolol IVP 2.5 mg IVP once Route: IVP; Site: left antecubital; tm6 05:43 Follow up: Response: No adverse reaction tm6 04:07 Drug: Metoprolol PO 75 mg PO once Route: PO; tm6 05:43 Follow up: Response: No adverse reaction tm6 04:43 CANCELLED (Duplicate Order): metoprolol5 mg IVP once; Hold for SBP <100 or HR <60. pf1 Medication: 00:33 VIS not applicable for this client. tm6 Outcome: 00:53 ER care complete, transfer ordered by MD. cp 10:18 Transferred by ground EMS Transfer form completed. Note: SENT TO [facility] [place] db 10:18 Condition: stable 10:18 Instructed on the need for transfer, 10:37 Patient left the ED. db Signatures: Dispatcher [employer] EDMS Gato Wright PA PA cp Garcia, Rubi rg4 Jocelyne Maciel RN RN db Danica Hanley PA-C PA-C sb4 Mica Chau RN RN pf1 Iona Candelaria rv1 Manoj Diaz MD MD sp4 Tiffani Mata RN RN cm10 Fátima Nicole cp4 Reggie Portillo RN RN tm6 Corrections: (The following items were deleted from the chart) 04:10 04:07 Metoprolol IVP 5 mg IVP in left antecubital tm6 tm6 08:00 07:00 Reassessment: Patient appears in no apparent distress at this time. Patient db and/or family updated on plan of care and expected duration. Pain level reassessed. Patient is alert, oriented x 3, equal unlabored respirations, skin warm/dry/pink. db 08:03 07:00 BP 138 / 94; Pulse 92bpm; Resp 16bpm; Pulse Ox 100% RA; db db 08:03 07:30 BP 125 / 96; Pulse 78bpm; Resp 18bpm; Pulse Ox 97% RA; db db 08:10 08:06 Reassessment: REPORT GIVEN TO CHARLES INMAN FROM [employer] [facility]. DR. PRINCESS NEWELL IS ACCEPTING PHYSICIAN. ERIC HALE IS ACCEPTING INTAKE DIRECTOR. db
--- NOTE | 2023-05-02 00:53 | EDPHYS ---
Physician Documentation [facility] Name: Donny Causey Age: 63 yrs Sex: Female : 1960 Arrival Date: 05/01/2023 Time: 16:15 Bed 14 Private MD: ED Physician Manoj Diaz HPI: 05/01 16:36 This 63 yrs old Female presents to ER via Ambulatory with complaints of sb4 Shortness Of Breath. 16:36 patient states that she is having shortness of breath, chest pain, and anxiety that are sb4 inhibiting her ability to sleep. she was instructed to return to the ED if she could not get her breathing under control. she was inpatient here for chest pain 1 week ago. she believes her symptoms are secondary to her depression and anxiety. 16:46 patient with 2 admissions at this facility within the past 2 weeks for chest pain, sb4 hypokalemia, and metabolic alkalosis consistent with hyperaldosteronism. has been instructed to follow up but has not yet done so. Historical: - Allergies: 16:28 No Known Allergies; cm10 - Home Meds: 05/02 01:25 spironolactone 25 mg Oral tablet 2 tabs 2 times per day [Active]; doxazosin 2 mg oral pf1 tablet .5 tab BID [Active]; metoprolol tartrate 25 mg oral tablet 3 tabs 2 times per day [Active]; Eliquis 5 mg oral tablet 1 tab 2 times per day [Active]; buspirone 5 mg Oral tablet 1 tab BID PRN [Active]; furosemide 40 mg Oral tablet 1 tab daily [Active]; losartan 25 mg oral tablet 1 tab daily [Active]; Lipitor 10 mg Oral tablet 1 tab every day at bedtime [Active]; - PMHx: 05/01 16:28 Anxiety; Atrial fibrillation; Cerebrovascular accident; coronary atherosclerosis; cm10 depressive disorder; Hypertensive disorder; - Immunization history:: Adult Immunizations unknown. - Social history:: Smoking status: Patient denies any tobacco usage or history of. ROS: 16:36 Constitutional: Negative for fever, chills, and weight loss, sb4 16:36 Cardiovascular: Positive for chest pain, 16:36 Respiratory: Positive for shortness of breath, 16:36 Psych: Positive for anxiety, depression, 16:36 All other systems are negative, Exam: 16:36 Head/Face: Normocephalic, atraumatic. Eyes: Extra-ocular motions intact. Periorbital sb4 areas with no swelling, redness, or edema. ENT: Mucous membranes moist. Respiratory: Lungs have equal breath sounds bilaterally, clear to auscultation and percussion. No rales, rhonchi or wheezes noted. No increased work of breathing, no retractions or nasal flaring. Abdomen/GI: Soft, non-tender, no distension. Skin: Warm, dry with normal turgor. Normal color with no rashes, no lesions, and no evidence of cellulitis. MS/ Extremity: Pulses equal, no cyanosis. Neurovascular intact. Full, normal range of motion. Neuro: Awake and alert, GCS 15, oriented to person, place, time, and situation. Motor strength 5/5 in all extremities. Sensory grossly intact. 16:36 Constitutional: The patient appears alert, awake, anxious, 16:36 Cardiovascular: Rate: normal, Rhythm: irregularly irregular, Pulses: no pulse deficits are appreciated, Heart sounds: normal, 05/02 00:12 ECG was reviewed by the Attending Physician. cp Vital Signs: 12 16:26 BP 125 / 88; Pulse 93; Resp 18; Temp 97.1; Pulse Ox 97% on R/A; Weight 89.81 kg; Height cm10 5 ft. 2 in. ; Pain 7/10; 20:07 BP 135 / 90; Pulse 89; Resp 18; Pulse Ox 95% ; cp4 20:53 BP 131 / 88; Pulse 68; Resp 18; Pulse Ox 95% ; cp4 21:11 BP 139 / 98; Pulse 66; Resp 15; Pulse Ox 95% ; Pain 0/10; tm6 21:56 BP 132 / 75; Pulse 82; Resp 14; Pulse Ox 96% on R/A; tm6 22:53 BP 127 / 87; Pulse 86; Resp 15; Pulse Ox 97% on R/A; tm6 23:58 BP 131 / 75; Pulse 84; Pulse Ox 93% ; tm6 12/12 00:32 BP 142 / 106; Pulse 90; Resp 18; Pulse Ox 99% on R/A; tm6 00:59 BP 148 / 105; Pulse 98; Pulse Ox 96% on R/A; tm6 01:47 BP 144 / 96; Pulse 87; Resp 19; Pulse Ox 94% ; Pain 0/10; tm6 03:42 BP 128 / 88; Pulse 94; Pulse Ox 92% on R/A; Pain 0/10; tm6 03:55 Pulse 140; Pulse Ox 88% on R/A; tm6 04:12 BP 127 / 89; Pulse 96; Pulse Ox 98% on 2 lpm NC; tm6 04:18 BP 118 / 83; Pulse 101; Pulse Ox 98% on 2 lpm NC; tm6 04:43 BP 102 / 76; Pulse 88; Pulse Ox 97% on R/A; tm6 05:41 BP 122 / 78; Pulse 79; Pulse Ox 99% on 2 lpm NC; tm6 06:18 BP 127 / 100; Pulse 100; Pulse Ox 92% on 2 lpm NC; tm6 07:00 BP 138 / 94; Pulse 92; Resp 16; Pulse Ox 100% on 2 lpm NC; db 07:30 BP 125 / 96; Pulse 78; Resp 18; Pulse Ox 97% on 2 lpm NC; db 09:00 BP 125 / 88; Pulse 86; Resp 16; Temp 97.8; Pulse Ox 98% on R/A; db 05/01 16:26 Body Mass Index 36.21 (89.81 kg, 157.48 cm) cm10 05/01 16:26 Pain Scale: Adult cm10 21:11 Pain Scale: Adult tm6 01:47 Pain Scale: Adult tm6 03:42 Pain Scale: Adult tm6 MDM: 05/01 16:36 Differential diagnosis: Anxiety Reaction Chronic Obstructive Pulmonary Disease sb4 Myocardial Infarction Unstable Angina. 16:40 Patient medically screened. sb4 20:14 Transition of care: After a detail discussion of the patient's case, care is sb4 transferred to [facility] M[facility]INE[facility]. 05/02 00:45 Data reviewed: vital signs, nurses notes, lab test result(s), EKG, radiologic studies, plain films. 00:45 I considered the following discharge prescriptions or medication management in the emergency department Medications were administered in the Emergency Department. See MAR. ED course: Discussed results of today's tests in preparation for discharge. Patient expressed to nurse and myself thoughts of suicide today and intent to harm self. Patient medically cleared and willing to be transferred for psych treatment. 05/01 16:34 Order name: Basic Metabolic Panel; Complete Time: 21:07 4 05/01 21:07 Interpretation: Normal except: K 2.7; BUN 24; GFR 62. cp 05/01 16:34 Order name: CBC with Diff; Complete Time: 19:53 sb4 05/01 21:08 Interpretation: Normal except: MCV 78.7; MCH 26.0. cp 05/01 16:34 Order name: LFT's; Complete Time: 21:07 [facility] 05/01 21:07 Interpretation: Normal except: AST 9; ALB 3.2; GLOB 4.4; A/G 0.7. cp / 16:34 Order name: Magnesium; Complete Time: 21:07 4 05/01 16:34 Order name: NT PRO-BNP; Complete Time: 21:07 [facility] 05/01 21:08 Interpretation: Reviewed. 05/01 16:34 Order name: PT-INR; Complete Time: 19:53 [facility] 05/01 21:08 Interpretation: Reviewed. 05/01 16:34 Order name: Troponin HS; Complete Time: 21:07 [facility] 05/02 00:23 Order name: Acetaminophen; Complete Time: 01:37 cp 05/02 00:23 Order name: Basic Metabolic Panel; Complete Time: 01:37 cp 05/02 01:37 Interpretation: Normal except: K 3.3; GLUC 153; BUN 22; GFR 72. cp 05/02 00:23 Order name: ETOH Level; Complete Time: 01:37 cp 05/02 00:23 Order name: PT-INR; Complete Time: 01:37 cp 05/02 01:38 Interpretation: Reviewed. cp 05/02 00:23 Order name: Ptt, Activated; Complete Time: 01:37 cp 05/02 00:23 Order name: Salicylate; Complete Time: 01:37 cp 05/02 00:23 Order name: Urine Drug Screen; Complete Time: 01:37 cp 05/02 08:10 Order name: Potassium db 05/01 16:34 Order name: XRAY Chest (1 view); Complete Time: 17:22 sb4 05/01 16:34 Order name: EKG; Complete Time: 16:34 sb4 05/01 16:34 Order name: Cardiac monitoring; Complete Time: 19:38 [facility] 05/01 16:34 Order name: EKG - Nurse/Tech; Complete Time: 16:37 sb4 05/01 16:34 Order name: IV Saline Lock; Complete Time: 19:38 sb4 05/01 16:34 Order name: Labs collected and sent; Complete Time: 19:38 sb4 05/01 16:34 Order name: O2 Per Protocol; Complete Time: 19:38 sb4 05/01 16:34 Order name: O2 Sat Monitoring; Complete Time: 19:38 sb4 05/01 23:17 Order name: EKG - Nurse/Tech: repeat after potassium finished; Complete Time: 00:10 cp 05/02 00:23 Order name: Labs collected and sent; Complete Time: 00:49 cp 05/02 00:23 Order name: Suicide Screening ([place]); Complete Time: 00:48 cp EC/11 16:36 Rate is 89 beats/min. Rhythm is irregularly irregular, A fib. QRS interval is normal at sb4 96 msec. QT interval is normal at [address] changes noted. Clinical impression: Atrial Fibrillation, LVH, and No evidence of ischemia. Interpreted by me. Reviewed by me. 05/02 00:12 Rate is 75 beats/min. Rhythm is irregular. QRS interval is normal. QT interval is cp normal. T waves are Inverted in lead aVR. Interpreted by me. Reviewed by me. Administered Medications: 05/01 21:54 Drug: Potassium PO Effervescent Tablet 50 mEq PO once; dissolve in 4 ounces of water or tm6 juice Route: PO; 22:50 Follow up: Response: No adverse reaction; Marked relief of symptoms pf1 05/02 01:51 Follow up: Response: No adverse reaction 6 05/01 21:54 Drug: Albuterol Inhalation 2.5 mg Inhalation once Route: Inhalation; tm6 22:50 Follow up: Response: No adverse reaction; Marked relief of symptoms pf1 05/02 01:51 Follow up: Response: No adverse reaction 6 05/01 21:54 Drug: Ipratropium Inhalation Aerosol 0.5 mg Inhalation once Route: Inhalation; tm6 22:50 Follow up: Response: No adverse reaction; Marked relief of symptoms pf1 05/02 01:51 Follow up: Response: No adverse reaction 6 05/01 21:54 Drug: Potassium Chloride IV 20 mEq IV at calculated rate once; administer over 1-2 tm6 hours Route: IV; Rate: calculated rate; Site: left antecubital; 05/02 00:00 Follow up: Response: No adverse reaction; IV Status: Completed infusion pf1 00:51 Follow up: Response: No adverse reaction; Marked relief of symptoms pf1 05/01 23:38 Drug: LORazepam PO 1 mg PO once Route: PO; tm6 05/02 00:30 Follow up: Response: No adverse reaction; Marked relief of symptoms pf1 01:51 Follow up: Response: No adverse reaction tm6 01:44 Drug: Potassium PO Effervescent Tablet 25 mEq PO once; dissolve in 4 ounces of water or tm6 juice Route: PO; 02:11 Follow up: Response: No adverse reaction; Marked relief of symptoms pf1 02:05 Drug: Zolpidem PO 10 mg PO once Route: PO; pf1 10:23 Follow up: Response: No adverse reaction db 04:05 Drug: Metoprolol IVP 2.5 mg IVP once Route: IVP; Site: left antecubital; tm6 05:43 Follow up: Response: No adverse reaction tm6 04:07 Drug: Metoprolol PO 75 mg PO once Route: PO; tm6 05:43 Follow up: Response: No adverse reaction tm6 04:43 CANCELLED (Duplicate Order): metoprolol5 mg IVP once; Hold for SBP <100 or HR <60. pf1 Disposition: 13:30 Co-signature as Attending Physician, Antione Douglass MD. rn Disposition Summary: 05/02/23 00:53 Transfer Ordered Notes: Transfer Location: [facility] cp Reason: Higher level of care cp Condition: Stable cp Problem: new cp Symptoms: have improved cp Accepting Physician: Doctor(05/02/23 10:37) db Diagnosis - Generalized anxiety disorder cp - Major depressive disorder, recurrent, unspecified cp - Suicidal ideations cp - Shortness of breath cp Discharge Instructions: - Discharge Summary Sheet sb4 - Managing Depression, Adult sb4 - Managing Anxiety, Adult sb4 Forms: - Medication Reconciliation Form cp - SBAR form cp Prescriptions: - sertraline 100 mg Oral tablet - take 1.5 tablet ORAL route daily; 30 tablet; Refills: 0, Product Selection sb4 Permitted - Hydroxyzine HCl 25 mg Oral Tablet - take 1 tablet ORAL route every 6 hours As needed; 30 tablet; Refills: 0, sb4 Product Selection Permitted Signatures: Dispatcher [employer] EDMS Antione Douglass MD MD rn Page, Corey, PA PA cp Benton, Danielle RN RN Danica Myles PA-C PA-C sb4 Mica Chau RN RN pf1 Manoj Diaz MD MD sp4 Tiffani Mata RN RN cm10 Reggie Portillo RN RN tm6 Corrections: (The following items were deleted from the chart) 04:43 03:52 Metoprolol IVP 5 mg IVP once; Hold for SBP <100 or HR <60. ordered. sp4 pf1 04:43 04:07 Metoprolol IVP 5 mg IVP once; Hold for SBP <100 or HR <60. given. tm6 pf1 04:43 04:10 Metoprolol IVP 5 mg IVP once; Hold for SBP <100 or HR <60. ordered. tm6 pf1 04:43 04:42 Metoprolol IVP 5 mg IVP once; Hold for SBP <100 or HR <60. ordered. pf1 pf1 10:37 00:53 Doctor cp db
[2023-05-02 01:22] LABS: Protime INR 1.28
[2023-05-02 01:32] LABS: BUN Blood Urea Nitrogen 22 mg/dL (7-18); Bicarbonate 31 mEq/L (21-32); Glomerular Filtration Rate 72 ml/min (=/>90); Glucose Level 153 mg/dL (74-106); Potassium 3.3 mEq/L (3.5-5.1); Sodium Level 141 mEq/L (136-145)
[2023-05-02 01:32] LABS: Barbiturates NEGATIVE (NEGATIVE); Benzodiazepines NEGATIVE (NEGATIVE); Cocaine NEGATIVE (NEGATIVE); METHAMPHETAM NEGATIVE (NEGATIVE); Methadone NEGATIVE (NEGATIVE); Opiates NEGATIVE (NEGATIVE); Phencyclidine NEGATIVE (NEGATIVE); THC Cannibis NEGATIVE (NEGATIVE)
[2023-05-02] MEDS ORDERED: POTASSIUM 25 MEQ EFFERV TAB ONE (01:58)
[2023-05-02] MEDS ORDERED: ZOLPIDEM TARTRATE 5 MG TABLET ONE (02:11)
[2023-05-02] MEDS ORDERED: METOPROLOL TAR 25 MG TAB ONE (04:11)
[2023-05-02] MEDS ORDERED: METOPROLOL TARTRATE 5 MG/5 ML INJ IV ONE (04:11)
[2023-05-02 11:18] VITALS: BP 125/88; TEMP 97.8; O2SAT 98
--- NOTE | 2023-05-02 13:42 | EKG ---
Test Date: 2023-05-01 Test Time: 16:35:31 Lead Network Architect: RAVEN MEASUREMENT RESULTS: Intervals: Rate: 89 [place]: QRSD: 96 QT: 378 QTc: 459 [place]: P: [place]: QRS: -14 T: -90 INTERPRETIVE STATEMENTS: Atrial fibrillation Voltage criteria for left ventricular hypertrophy Nonspecific ST and T wave abnormality Abnormal ECG Compared to ECG 04/25/2023 05:18:23 Ventricular premature complex(es) no longer present ST (T wave) deviation still present Electronically Signed On 05-02-23 13:39:31 INHALATION THERAPY TEACHER by Avery Conn
== END 2023-05-02 10:37 ==
LOC: ER 16:15
DX: F41.1 Generalized anxiety disorder (principal); F33.9 Major depressive disorder, recurrent, unspecified; R45.851 Suicidal ideations; I10 Essential (primary) hypertension; I48.91 Unspecified atrial fibrillation; Z79.01 Long term (current) use of anticoagulants
CPT/HCPCS: 96365; 93005; 85025; 80048 ×2; 36415; 83735; 84132; 85610 ×2; 80076; 85730; 84484; 83880; 80307; 71045; 96375; 99285; 96366; 80143; 80179; 82077; J3480; J7613; J7644; J7030

== ENCOUNTER 2023-11-26 07:55 | Emergency (ER) | payer OTHER ==
[2023-11-26] MEDS ORDERED: DIPHENHYDRAMINE 50 MG/ML VIAL ONE (08:38)
[2023-11-26] MEDS ORDERED: KETOROLAC 30 MG/ML INJ ONE (08:38)
[2023-11-26] MEDS ORDERED: NA CHLORIDE 0.9% 1,000 ML ONE (08:39)
[2023-11-26 09:06] LABS: Absolute Eosinophils 0.2 K/uL (0-0.5); Absolute Lymphocytes (CBC) 2.1 K/uL (0.7-4.9); Absolute Monocytes 0.4 K/uL (0.1-1.3); Absolute Neutrophil 4.7 K/uL (1.8-8.0); Basophils % 0.4 % (0-1.3); Eosinophils % 3.1 % (0-4.4); Hematocrit 37.2 % (36.0-45.0); Hemoglobin 12.4 g/dL (12.0-15.0); Lymphocytes % 27.8 % (15.3-44.8); MCHC 33.5 g/dL (32.0-36.0); MCV 77.7 fL (80-100); MPV 7.8 fL (7.6-11.3); Monocytes % 5.8 % (3.3-12.3); Neutrophils % 62.9 % (41.7-73.7); Nucleated Red Blood Cells % 0.3 % (0-0); Platelets 398 thou/uL (152-406); RBC Red Blood Cell Count 4.78 M/uL (3.86-4.86); Red Cell Distribution Width 14.4 % (12.1-15.2)
[2023-11-26 09:29] LABS: SARS-CoV-2 Antigen CONTROL BLUE LINE VIS/BG OK; SARS-CoV-2 Antigen Rapid Res Negative (Negative)
--- NOTE | 2023-11-26 09:38 | RAD REPORT ---
EXAM DESCRIPTION: [place] Single View11/26/2023 9:21 am CLINICAL HISTORY: Cough COMPARISON: 2020 FINDINGS: The lungs appear clear of acute infiltrate. The heart is mildly to moderately enlarged IMPRESSION: No acute abnormalities displayed
[2023-11-26 10:05] LABS: Anion Gap 6.8 mEq/L (5.0-15.0)
[2023-11-26 10:09] LABS: Potassium 1.8 mEq/L (3.5-5.1)
[2023-11-26 10:12] LABS: Specific Gravity 1.006 (1.005-1.030); Sqamous Epithelial <5 /HPF (None Seen); Urine Bacteria <20 /HPF (<20); Urine Bilirubin NEGATIVE (Negative); Urine Blood Negative (Negative); Urine Clarity Clear (Clear); Urine Color Colorless (Yellow); Urine Culture Reflex Order NOT NEEDED; Urine Glucose NEGATIVE (Negative); Urine Ketones NEGATIVE (Negative); Urine Micro Reflex YN NO BILL MICROSCOPIC; Urine Mucus Slight /HPF (None Seen); Urine Nitrite NEGATIVE (Negative); Urine Protein NEGATIVE (Negative); Urine RBC <5 /HPF (None Seen); Urine Urobilinogen Normal (Normal); Urine WBC <5 /HPF (<5)
[2023-11-26] MEDS ORDERED: POTASSIUM CL SA 10 MEQ TAB PO ONE ×2 (10:36→15:28)
[2023-11-26] MEDS ORDERED: KCL 20 MEQ/100 mL IVPB 100 ML IV ONE ×2 (10:37→15:28)
[2023-11-26] MEDS ORDERED: Magnesium Sulfate 2gm IVPB 2 G/50 ML BAG IV ONE (12:51)
[2023-11-26 14:30] LABS: Anion Gap 7.1 mEq/L (5.0-15.0)
[2023-11-26 14:32] LABS: Potassium 2.1 mEq/L (3.5-5.1)
--- NOTE | 2023-11-26 15:13 | EDPHYS ---
Physician Documentation [facility] Name: Donny Causey Age: 63 yrs Sex: Female : 1960 Arrival Date: 11/26/2023 Time: 07:55 Bed 5 Private MD: ED Physician Morgan Jones HPI: 11/25 08:09 This 63 yrs old Female presents to ER via Unassigned with complaints of Cough. ec2 08:09 Patient arrives today for evaluation of cough and cold symptoms as well as headache and ec2 dizziness and subjective shortness of breath. Patient reports she been having 3 days of symptoms. States that she is having generalized bodyaches, head pain, neck pain, low back pain as well as generalized numbness. Patient reports no vomiting, no diarrhea, reports poor appetite.. Historical: - Allergies: 08:13 No Known Allergies; hb - Home Meds: 08:13 buspirone 5 mg Oral tablet 1 tab BID PRN [Active]; doxazosin 2 mg Oral tablet 0.5 tab hb BID [Active]; Eliquis 5 mg Oral tablet 1 tab 2 times per day [Active]; furosemide 40 mg Oral tablet 1 tab daily [Active]; Lipitor 10 mg Oral tablet 1 tab every day at bedtime [Active]; losartan 25 mg Oral tablet 1 tab daily [Active]; metoprolol tartrate 25 mg Oral tablet 3 tabs 2 times per day [Active]; spironolactone 25 mg Oral tablet 2 tabs 2 times per day [Active]; - PMHx: 08:13 Atrial fibrillation; Anxiety; Cerebrovascular accident; coronary atherosclerosis; hb Hypertensive disorder; depressive disorder; - Immunization history:: Adult Immunizations up to date. - Infectious Disease History:: Denies. - Social history:: Smoking status: Patient denies any tobacco usage or history of. ROS: 08:10 Constitutional: as per hpi ec2 Exam: 08:10 Constitutional: Patient arrives today for evaluation of cough and cold symptoms. ec2 Examination remarkable for well-appearing nontoxic individual's otherwise in no acute distress with a reassuring cardiopulmonary examination. Will obtain lab work, chest x-ray, viral swabs. Differential diagnosis include viral infection, urinary tract infection, pneumonia. Vital Signs: 07:55 BP 120 / 68; Pulse 88; Resp 16; Temp 97.8(O); Pulse Ox 100% on R/A; Weight 90.72 kg; hb Height 5 ft. 1 in. ; Pain 0/10; 10:45 BP 123 / 78; Pulse 89; Resp 18 S; Pulse Ox 93% on R/A; kc6 11:29 BP 129 / 86; Pulse 101; Resp 16 S; Pulse Ox 95% on R/A; kc6 13:00 BP 135 / 82; Pulse 93; Resp 16; Pulse Ox 89% on R/A; nj1 13:32 BP 112 / 74; Pulse 100; Resp 15; Pulse Ox 94% on 2 lpm NC; nj1 14:11 BP 142 / 95; Pulse 89; Resp 15; Pulse Ox 94% on 2 lpm NC; nj1 15:17 BP 126 / 94; Pulse 85; Resp 16 S; Pulse Ox 96% on R/A; kc6 07:55 Body Mass Index 37.79 (90.72 kg, 154.94 cm) hb 07:55 Pain Scale: Adult hb MDM: 07:59 Patient medically screened. ec2 08:10 Data reviewed: vital signs. ec2 08:45 ED course: EKG independently reviewed and interpreted by me, shows afib, rate of 76, no ec2 acute ST segment elevations noted, intervals non-concerning. . 10:48 ED course: Metabolic profile shows potassium at 1.8. Urine is noninfectious appearing. .ec2 11:17 ED course: Given the patient potassium as well as magnesium. On reassessment patient is ec2 reports she is having marked improvement in her symptoms. Patient is ambulatory and stable on her feet. Will obtain repeat metabolic profile.. 11:18 ED course: Patient also reports that she is on potassium supplementation at home and ec2 has been told her potassium levels are typically low. Previous records indicate potassium low at 2.7. . 15:12 ED course: I discussed the results with the patient, discussed additional potassium ec2 administration ultimately we decided we will return to home with increasing her home potassium. Will discharge home, instructed on return precautions and instructed her to follow-up with her primary care doctor for repeat testing.. 11/25 08:09 Order name: Basic Metabolic Panel; Complete Time: 10:48 ec2 11/25 08:09 Order name: CBC with Diff; Complete Time: 09:50 ec2 11/25 08:09 Order name: UAM; Complete Time: 10:48 ec2 11/25 08:10 Order name: SARS RAPID; Complete Time: 09:50 ec2 11/25 08:10 Order name: Influenza Screen (a \T\ B); Complete Time: 09:50 ec2 11/25 12:42 Order name: BMP; Complete Time: 14:35 ec2 11/25 08:09 Order name: XRAY Chest (1 view); Complete Time: 09:50 ec2 11/25 08:09 Order name: EKG; Complete Time: 08:09 ec2 11/25 08:09 Order name: Cardiac monitoring; Complete Time: 08:59 ec2 11/25 08:09 Order name: EKG - Nurse/Tech; Complete Time: 08:59 ec2 11/25 08:09 Order name: IV Saline Lock; Complete Time: 08:59 ec2 11/25 08:09 Order name: Labs collected and sent; Complete Time: 08:59 ec2 11/25 08:09 Order name: O2 Per Protocol; Complete Time: 08:34 ec2 11/25 08:09 Order name: O2 Sat Monitoring; Complete Time: 08:34 ec2 11/25 09:17 Order name: Labs - recollect needed: recollect the chemistries; Complete Time: 09:58 eb 11/25 11:19 Order name: Misc. Order: repeat bmp at 1230; Complete Time: 14:11 ec2 Administered Medications: 16:24 Discontinued: potassium [id number] meq IV at calculated rate once; administer over 1-2 hb hours 08:59 Drug: Ketorolac IVP 15 mg IVP once Route: IVP; Site: right antecubital; kc6 10:44 Follow up: Response: No adverse reaction kc6 08:59 Drug: Droperidol IVP 2.5 mg IVP once Route: IVP; Site: right antecubital; kc6 10:44 Follow up: Response: No adverse reaction kc6 08:59 Drug: diphenhydrAMINE IVP 25 mg IVP once Route: IVP; Site: right antecubital; kc6 10:44 Follow up: Response: No adverse reaction kc6 08:59 Drug: NS 0.9% IV 1000 ml IV at 1 bolus Per protocol; 1000 mL bolus Route: IV; Rate: 1 kc6 bolus; Site: right antecubital; 10:44 Drug: Potassium Chloride IV 20 mEq IV at calculated rate once; administer over 1-2 kc6 hours Route: IV; Rate: calculated rate; Site: right antecubital; 13:55 Follow up: Response: No adverse reaction; IV Status: Completed infusion; IV Intake: [id number] 10:44 Drug: Potassium Chloride PO 40 mEq PO once Route: PO; kc6 11:29 Follow up: Response: No adverse reaction the [facility] 13:00 Drug: Magnesium Sulfate IVPB 2 grams IVPB once over 30 mins Route: IVPB; Infused Over: nj1 30 mins; Site: right antecubital; 13:55 Follow up: Response: No adverse reaction; IV Status: Completed infusion; IV Intake: [id number] 15:37 Drug: Potassium Chloride PO 40 mEq PO once Route: PO; kc6 15:37 Drug: Potassium Chloride IV 20 mEq IV at calculated rate once; administer over 1-2 kc6 hours Route: IV; Rate: calculated rate; Site: right antecubital; 16:24 Follow up: Response: Other; IV Intake: 30ml ; burning ceased when infusion hb paused/discontinued. Disposition Summary: 11/26/23 15:12 Discharge Ordered Condition: Stable ec2 Diagnosis - Viral infection, unspecified ec2 - Hypokalemia ec2 Followup: ec2 - With: Private Physician - When: - Reason: Re-evaluation by your physician Discharge Instructions: - Discharge Summary Sheet ec2 - Potassium Content of Foods ec2 - Viral Illness, Adult ec2 Forms: - Medication Reconciliation Form ec2 - Antibiotic Education ec2 - Prescription Opioid Use ec2 - Patient Portal Instructions ec2 - Leadership Thank You Letter ec2 Critical care time excluding procedures: 11:18 Critical care time: Bedside Care: 30 minutes. Total time: 30 minutes ec2 Signatures: Dispatcher [employer] EDDejah Moyer RN RN hb Botello, Elizabeth eb Campbell, Kaitlyn, RN RN kc6 Diamond Marie RN RN nj1 Morgan Jones MD MD ec2 Corrections: (The following items were deleted from the chart) 08:09 08:09 BASIC METABOLIC PANEL+C.LAB.BRZ ordered. EDMS EDMS 08:09 08:09 CBC+H.LAB.BRZ ordered. EDMS EDMS 08:09 08:09 Urinalysis W/Microscopic+U.LAB.BRZ ordered. EDMS EDMS
--- NOTE | 2023-11-26 15:13 | ER ---
Nurse's Notes [facility] Name: Donny Causey Age: 63 yrs Sex: Female : 1960 Arrival Date: 11/26/2023 Time: 07:55 Bed 5 Private MD: Diagnosis: Viral infection, unspecified;Hypokalemia Presentation: 11/25 07:55 Chief complaint: EMS states: Toned out for dizziness, tingling of face and extremities, hb and cold symptoms for 3 days. Coronavirus screen: At this time, the client does not indicate any symptoms associated with coronavirus-19. Ebola Screen: No symptoms or risks identified at this time. Initial Sepsis Screen: Does the patient meet any 2 criteria? No. Patient's initial sepsis screen is negative. Does the patient have a suspected source of infection? No. Patient's initial sepsis screen is negative. Risk Assessment: Do you want to hurt yourself or someone else? Patient reports no desire to harm self or others. Onset of symptoms was November 23, 2023. 07:55 Method Of Arrival: EMS: [facility] 07:55 Acuity: WENCESLAO 3 hb Historical: - Allergies: 08:13 No Known Allergies; hb - Home Meds: 08:13 buspirone 5 mg Oral tablet 1 tab BID PRN [Active]; doxazosin 2 mg Oral tablet 0.5 tab hb BID [Active]; Eliquis 5 mg Oral tablet 1 tab 2 times per day [Active]; furosemide 40 mg Oral tablet 1 tab daily [Active]; Lipitor 10 mg Oral tablet 1 tab every day at bedtime [Active]; losartan 25 mg Oral tablet 1 tab daily [Active]; metoprolol tartrate 25 mg Oral tablet 3 tabs 2 times per day [Active]; spironolactone 25 mg Oral tablet 2 tabs 2 times per day [Active]; - PMHx: 08:13 Atrial fibrillation; Anxiety; Cerebrovascular accident; coronary atherosclerosis; hb Hypertensive disorder; depressive disorder; - Immunization history:: Adult Immunizations up to date. - Infectious Disease History:: Denies. - Social history:: Smoking status: Patient denies any tobacco usage or history of. Screenin:59 [facility] ED Fall Risk Assessment (Adult) History of falling in the last 3 months, kc6 including since admission No falls in past 3 months (0 pts) Confusion or Disorientation No (0 pts) Intoxicated or Sedated No (0 pts) Impaired Gait No (0 pts) Mobility Assist Device Used No (0 pt) Altered Elimination No (0 pt) Score/Fall Risk Level 0 - 2 = Low Risk. Abuse screen: Denies threats or abuse. Denies injuries from another. Nutritional screening: No deficits noted. Tuberculosis screening: No symptoms or risk factors identified. Assessment: 08:00 General: Appears in no apparent distress. comfortable, well groomed, well developed, kc6 Behavior is cooperative, anxious, crying. Pain: Denies pain. Neuro: Level of Consciousness is awake, alert, obeys commands, Oriented to person, place, time, situation, Appropriate for age Reports dizziness, weakness. Cardiovascular: Denies chest pain, shortness of breath, Heart tones S1 S2 present Capillary refill < 3 seconds Rhythm is atrial fibrillation. Respiratory: Reports cough that is productive, Airway is patent Trachea midline Respiratory effort is even, unlabored, Respiratory pattern is regular, symmetrical. GI: No signs and/or symptoms were reported involving the gastrointestinal system. : No signs and/or symptoms were reported regarding the genitourinary system. EENT: No signs and/or symptoms were reported regarding the EENT system. Derm: No signs and/or symptoms reported regarding the dermatologic system. Skin is intact, is healthy with good turgor, Skin is pink, warm \T\ dry. Musculoskeletal: No signs and/or symptoms reported regarding the musculoskeletal system. Circulation, motion, and sensation intact. Capillary refill < 3 seconds, Range of motion: intact in all extremities. 09:00 Reassessment: Patient appears in no apparent distress at this time. No changes from kc6 previously documented assessment. Patient and/or family updated on plan of care and expected duration. Pain level reassessed. Patient is alert, oriented x 3, equal unlabored respirations, skin warm/dry/pink. 10:00 Reassessment: Patient appears in no apparent distress at this time. No changes from kc6 previously documented assessment. Patient and/or family updated on plan of care and expected duration. Pain level reassessed. Patient is alert, oriented x 3, equal unlabored respirations, skin warm/dry/pink. 11:29 Reassessment: Patient appears in no apparent distress at this time. No changes from kc6 previously documented assessment. Patient and/or family updated on plan of care and expected duration. Pain level reassessed. Patient is alert, oriented x 3, equal unlabored respirations, skin warm/dry/pink. 13:01 Reassessment: Patient appears in no apparent distress at this time. Patient and/or nj1 family updated on plan of care and expected duration. Pain level reassessed. Patient is alert, oriented x 3, equal unlabored respirations, skin warm/dry/pink. 13:33 Reassessment: No changes from previously documented assessment. nj1 14:11 Reassessment: Patient appears in no apparent distress at this time. Patient and/or nj1 family updated on plan of care and expected duration. Pain level reassessed. Patient is alert, oriented x 3, equal unlabored respirations, skin warm/dry/pink. 15:12 Reassessment: d/c pending potassium completion. kc6 15:17 Reassessment: Patient appears in no apparent distress at this time. No changes from [facility] previously documented assessment. Patient and/or family updated on plan of care and expected duration. Pain level reassessed. Patient is alert, oriented x 3, equal unlabored respirations, skin warm/dry/pink. 16:22 Reassessment: Pt unable to tolerate IV KCL. Dr. Jones notified, infusion discontinued, hb pt instructed to increase home potassium supplement. Pt verbalized understanding of instructions. Vital Signs: 07:55 BP 120 / 68; Pulse 88; Resp 16; Temp 97.8(O); Pulse Ox 100% on R/A; Weight 90.72 kg; hb Height 5 ft. 1 in. ; Pain 0/10; 10:45 BP 123 / 78; Pulse 89; Resp 18 S; Pulse Ox 93% on R/A; kc6 11:29 BP 129 / 86; Pulse 101; Resp 16 S; Pulse Ox 95% on R/A; kc6 13:00 BP 135 / 82; Pulse 93; Resp 16; Pulse Ox 89% on R/A; nj1 13:32 BP 112 / 74; Pulse 100; Resp 15; Pulse Ox 94% on 2 lpm NC; nj1 14:11 BP 142 / 95; Pulse 89; Resp 15; Pulse Ox 94% on 2 lpm NC; nj1 15:17 BP 126 / 94; Pulse 85; Resp 16 S; Pulse Ox 96% on R/A; kc6 07:55 Body Mass Index 37.79 (90.72 kg, 154.94 cm) hb 07:55 Pain Scale: Adult hb ED Course: 07:59 Patient arrived in ED. eb 07:59 Morgan Jones MD is Attending Physician. ec2 08:12 Triage completed. hb 08:15 Arm band placed on. hb 08:59 Carmelita Hsieh, CHARLES is Primary Nurse. kc6 08:59 Inserted saline lock: 20 gauge in right antecubital area, using aseptic technique. kc6 Blood collected. 09:00 Patient has correct armband on for positive identification. Placed in gown. Bed in low kc6 position. Call light in reach. Side rails up X2. school bus monitor on. Pulse ox on. NIBP on. Door closed. Noise minimized. Lights dimmed. Warm blanket given. Pillow given. 09:23 XRAY Chest (1 view) In Process Unspecified. EDMS 13:02 Oxygen administration via nasal cannula \T\ 2L/min. nj1 16:25 Provided Education on: medication, follow up. hb 16:25 No provider procedures requiring assistance completed. IV discontinued, intact, hb bleeding controlled, No redness/swelling at site. Pressure dressing applied. Administered Medications: 16:24 Discontinued: potassium [id number] meq IV at calculated rate once; administer over 1-2 hb hours 08:59 Drug: Ketorolac IVP 15 mg IVP once Route: IVP; Site: right antecubital; kc6 10:44 Follow up: Response: No adverse reaction kc6 08:59 Drug: Droperidol IVP 2.5 mg IVP once Route: IVP; Site: right antecubital; kc6 10:44 Follow up: Response: No adverse reaction kc6 08:59 Drug: diphenhydrAMINE IVP 25 mg IVP once Route: IVP; Site: right antecubital; kc6 10:44 Follow up: Response: No adverse reaction kc6 08:59 Drug: NS 0.9% IV 1000 ml IV at 1 bolus Per protocol; 1000 mL bolus Route: IV; Rate: 1 kc6 bolus; Site: right antecubital; 10:44 Drug: Potassium Chloride IV 20 mEq IV at calculated rate once; administer over 1-2 kc6 hours Route: IV; Rate: calculated rate; Site: right antecubital; 13:55 Follow up: Response: No adverse reaction; IV Status: Completed infusion; IV Intake: [id number] 10:44 Drug: Potassium Chloride PO 40 mEq PO once Route: PO; kc6 11:29 Follow up: Response: No adverse reaction kc6 13:00 Drug: Magnesium Sulfate IVPB 2 grams IVPB once over 30 mins Route: IVPB; Infused Over: nj1 30 mins; Site: right antecubital; 13:55 Follow up: Response: No adverse reaction; IV Status: Completed infusion; IV Intake: [id number] 15:37 Drug: Potassium Chloride PO 40 mEq PO once Route: PO; kc6 15:37 Drug: Potassium Chloride IV 20 mEq IV at calculated rate once; administer over 1-2 kc6 hours Route: IV; Rate: calculated rate; Site: right antecubital; 16:24 Follow up: Response: Other; IV Intake: 30ml ; burning ceased when infusion hb paused/discontinued. Medication: 16:26 VIS not applicable for this client. hb Intake: 13:55 IV: 50ml; Total: 50ml. nj1 13:55 IV: 50ml; Total: 100ml. nj1 16:24 IV: 30ml; Total: 130ml. hb Outcome: 15:12 Discharge ordered by . ec2 16:25 Discharged to home ambulatory, hb 16:25 Condition: stable 16:25 Discharge instructions given to patient, Instructed on discharge instructions, follow up and referral plans. medication usage, Demonstrated understanding of instructions, follow-up care, medications, 16:39 Patient left the ED. kc6 Signatures: Dispatcher [employer] EDDejah Moyer RN RN Emani Aquino Kaitlyn, RN RN kc6 Diamond Marie RN RN nj1 Morgan Jones MD MD ec2
[2023-11-26 16:49] VITALS: TEMP 97.8
[2023-11-26 17:07] VITALS: BP 126/94; O2SAT 96
--- NOTE | 2023-11-28 09:03 | EKG ---
Test Date: 2023-11-26 Test Time: 08:43:02 Sugar [employer]iner: CARLOS MEASUREMENT RESULTS: Intervals: Rate: 76 RI: QRSD: 104 QT: 426 QTc: 479 [place]: P: RI: QRS: -18 T: -17 INTERPRETIVE STATEMENTS: Atrial fibrillation Nonspecific T wave abnormality, probably digitalis effect Prolonged QT Abnormal ECG Compared to ECG 05/02/2023 00:06:23 Prolonged QT interval now present Left ventricular hypertrophy no longer present T-wave abnormality still present Electronically Signed On 11-28-23 09:02:46 CDT by Triston Bui
== END 2023-11-26 16:39 | disposition home or self-care (01) ==
LOC: ER 07:55
DX: B34.9 Viral infection, unspecified (principal); E87.6 Hypokalemia; I48.91 Unspecified atrial fibrillation; I10 Essential (primary) hypertension; Z79.01 Long term (current) use of anticoagulants; Z79.899 Other long term (current) drug therapy
CPT/HCPCS: 96365; 93005; 85025; 81001; 80048 ×2; 36415; 87804 ×2; 71045; 96375; 99285; 96366; 87811; J3480 ×2; J3475; J1200; J7030

== ENCOUNTER 2024-03-22 12:03 | Emergency (ER) | payer OTHER ==
[2024-03-22 13:14] LABS: Anion Gap 6.7 mEq/L (5.0-15.0); Potassium 2.7 mEq/L (3.5-5.1)
[2024-03-22] MEDS ORDERED: KCL 20 MEQ/100 mL IVPB 100 ML IV ONE (13:19)
[2024-03-22] MEDS ORDERED: NA CHLORIDE 0.9% 250 ML ONE (13:19)
--- NOTE | 2024-03-22 14:59 | ER ---
Nurse's Notes [facility] Name: Donny Causey Age: 63 yrs Sex: Female : 1960 Arrival Date: 03/22/2024 Time: 12:03 Bed 14 Private MD: Diagnosis: Hypokalemia Presentation: 03/22 12:12 Chief complaint: Patient states: Went for routine lab work today and was called and me1 sent to ER by for low potassium. Coronavirus screen: Vaccine status: Patient reports receiving the 2nd dose of the covid vaccine. Ebola Screen: No symptoms or risks identified at this time. Initial Sepsis Screen: Does the patient meet any 2 criteria? No. Patient's initial sepsis screen is negative. Does the patient have a suspected source of infection? No. Patient's initial sepsis screen is negative. Risk Assessment: Do you want to hurt yourself or someone else? Patient reports no desire to harm self or others. Onset of symptoms is unknown. 12:12 Method Of Arrival: Ambulatory me1 12:12 Acuity: WENCESLAO 3 me1 Triage Assessment: 15:15 General: Appears in no apparent distress. Behavior is calm, cooperative, appropriate ko1 for age. Historical: - Allergies: 12:15 No Known Allergies; me1 - PMHx: 12:15 Anxiety; Atrial fibrillation; Cerebrovascular accident; coronary atherosclerosis; me1 depressive disorder; Hypertensive disorder; - PSHx: 12:15 None; me1 - Immunization history:: Adult Immunizations up to date. - Infectious Disease History:: Denies. - Social history:: Smoking status: Patient denies any tobacco usage or history of. Screenin:28 [facility] ED Fall Risk Assessment (Adult) History of falling in the last 3 months, ko1 including since admission No falls in past 3 months (0 pts) Confusion or Disorientation No (0 pts) Intoxicated or Sedated No (0 pts) Impaired Gait No (0 pts) Mobility Assist Device Used No (0 pt) Altered Elimination No (0 pt) Score/Fall Risk Level 0 - 2 = Low Risk Oriented to surroundings, Maintained a safe environment, Educated pt \T\ family on fall prevention, incl call for assistance when getting out of bed, Assessed \T\ reinforced patient's understanding of fall precautions, Hourly rounding (assess needs \T\ fall precautionary measures) done. Abuse screen: Denies threats or abuse. Denies injuries from another. Nutritional screening: No deficits noted. Tuberculosis screening: No symptoms or risk factors identified. Assessment: 13:28 Pain: Denies pain. ko1 Vital Signs: 12:12 BP 148 / 109; Pulse 89; Resp 18; Temp 98.7; Pulse Ox 97% ; Weight 90.72 kg; Height 5 me1 ft. 1 in. ; Pain 0/10; 13:28 BP 151 / 103; Pulse 78; Resp 16; Pulse Ox 99% ; ko1 14:57 BP 166 / 111; Pulse 70; Resp 15; Pulse Ox 99% ; ko1 12:12 Body Mass Index 37.79 (90.72 kg, 154.94 cm) me1 12:12 Pain Scale: Adult va1 ED Course: 12:05 Patient arrived in ED. mg5 12:14 Triage completed. me1 12:15 Arm band placed on Patient placed in an exam room. me1 12:21 Shannan Butler, CHARLES is Primary Nurse. ko1 12:21 Leonor Salas MD is Attending Physician. gb1 12:44 BMP Sent. ko1 13:28 Patient has correct armband on for positive identification. Bed in low position. Call ko1 light in reach. Side rails up X2. Provided Education on: labs. Client placed on continuous cardiac and pulse oximetry monitoring. NIBP monitoring applied. quality assurance monitor chassis on. Door closed. Noise minimized. Lights dimmed. Warm blanket given. Pillow given. 13:28 No provider procedures requiring assistance completed. Initial lab(s) drawn, by ED ko1 staff, sent to lab. Inserted saline lock: 22 gauge in left antecubital area, using aseptic technique. Blood collected. Flushed with 10 mL NS. 14:57 Assisted to bathroom. ko1 15:05 IV discontinued, intact, bleeding controlled, No redness/swelling at site. Pressure ko1 dressing applied. Administered Medications: 13:28 Drug: Potassium Chloride IV 20 mEq IV at bolus once; administer over 1-2 hours Route: ko1 IV; Rate: bolus; Site: left antecubital; 14:56 Follow up: Response: No adverse reaction; IV Status: Completed infusion; IV Intake: ko1 100ml Medication: 13:28 VIS not applicable for this client. ko1 Intake: 14:56 IV: 100ml; Total: 100ml. ko1 Outcome: 14:58 Discharge ordered by . gb1 15:15 Discharged to home ambulatory, ko1 15:15 Condition: stable 15:15 Discharge instructions given to patient, Instructed on discharge instructions, follow up and referral plans. medication usage, Demonstrated understanding of instructions, follow-up care, 15:15 Patient left the ED. ko1 Signatures: Shannan Butler RN RN ko1 Crista Andujar RN RN va1 Amber George mg5 Leonor Salas MD MD gb1
--- NOTE | 2024-03-22 14:59 | EDPHYS ---
Physician Documentation [facility] Name: Donny Causey Age: 63 yrs Sex: Female : 1960 Arrival Date: 03/22/2024 Time: 12:03 Bed 14 Private MD: ED Physician Leonor Salas HPI: 03/22 14:59 This 63 yrs old Female presents to ER via Ambulatory with complaints of gb1 Abnormal Lab Results. 14:59 Patient is on for low potassium from her doctor's office. She has a history of anxiety, gb1 atrial fibrillation, CVA, CAD and depression. She is on oral potassium at home at baseline.. Historical: - Allergies: 12:15 No Known Allergies; me1 - PMHx: 12:15 Anxiety; Atrial fibrillation; Cerebrovascular accident; coronary atherosclerosis; me1 depressive disorder; Hypertensive disorder; - PSHx: 12:15 None; me1 - Immunization history:: Adult Immunizations up to date. - Infectious Disease History:: Denies. - Social history:: Smoking status: Patient denies any tobacco usage or history of. Exam: 14:59 Constitutional: This is a well developed, well nourished patient who is awake, alert, gb1 and in no acute distress. Head/Face: Normocephalic, atraumatic. Eyes: Pupils equal round and reactive to light, extra-ocular motions intact. Lids and lashes normal. Conjunctiva and sclera are non-icteric and not injected. Cornea within normal limits. Periorbital areas with no swelling, redness, or edema. ENT: Nares patent. No nasal discharge, no septal abnormalities noted. Tympanic membranes are normal and external auditory canals are clear. Oropharynx with no redness, swelling, or masses, exudates, or evidence of obstruction, uvula midline. Mucous membranes moist. Neck: Trachea midline, no thyromegaly or masses palpated, and no cervical lymphadenopathy. Supple, full range of motion without nuchal rigidity, or vertebral point tenderness. No Meningismus. Chest/axilla: Normal chest wall appearance and motion. Nontender with no deformity. No lesions are appreciated. Cardiovascular: Regular rate and rhythm with a normal S1 and S2. No gallops, murmurs, or rubs. Normal PMI, no JVD. No pulse deficits. Respiratory: Lungs have equal breath sounds bilaterally, clear to auscultation and percussion. No rales, rhonchi or wheezes noted. No increased work of breathing, no retractions or nasal flaring. Abdomen/GI: Soft, non-tender, with normal bowel sounds. No distension or tympany. No guarding or rebound. No evidence of tenderness throughout. Skin: Warm, dry with normal turgor. Normal color with no rashes, no lesions, and no evidence of cellulitis. MS/ Extremity: Pulses equal, no cyanosis. Neurovascular intact. Full, normal range of motion. Vital Signs: 12:12 BP 148 / 109; Pulse 89; Resp 18; Temp 98.7; Pulse Ox 97% ; Weight 90.72 kg; Height 5 me1 ft. 1 in. ; Pain 0/10; 13:28 BP 151 / 103; Pulse 78; Resp 16; Pulse Ox 99% ; ko1 14:57 BP 166 / 111; Pulse 70; Resp 15; Pulse Ox 99% ; ko1 12:12 Body Mass Index 37.79 (90.72 kg, 154.94 cm) me1 12:12 Pain Scale: Adult me1 MDM: 12:21 Medical Screening Exam initiated gb1 14:59 Data reviewed: vital signs, nurses notes, lab test result(s), electrolytes. gb1 03/22 12:32 Order name: DOMINIC; Complete Time: 13:15 gb1 Administered Medications: 13:28 Drug: Potassium Chloride IV 20 mEq IV at bolus once; administer over 1-2 hours Route: ko1 IV; Rate: bolus; Site: left antecubital; 14:56 Follow up: Response: No adverse reaction; IV Status: Completed infusion; IV Intake: ko1 100ml Disposition Summary: 03/22/24 14:58 Discharge Ordered Notes: Location: Home gb1 Condition: Stable gb1 Diagnosis - Hypokalemia gb1 Followup: gb1 - With: Private Physician - When: - Reason: Further diagnostic work-up Discharge Instructions: - Discharge Summary Sheet gb1 - Potassium Content of Foods gb1 - Hypokalemia gb1 Forms: - Medication Reconciliation Form gb1 - Antibiotic Education gb1 - Prescription Opioid Use gb1 - Patient Portal Instructions gb1 - Leadership Thank You Letter gb1 Signatures: Dispatcher [employer] Shannan Peterson RN RN ko1 Crista Andujar, RN RN me1 Leonor Salas MD MD gb1 Corrections: (The following items were deleted from the chart) 12:32 12:32 BASIC METABOLIC PANEL+[id number] ordered. EDMS EDMS
[2024-03-22 15:28] VITALS: TEMP 98.7
[2024-03-22 15:29] VITALS: O2SAT 99
[2024-03-22 15:30] VITALS: BP 166/111
== END 2024-03-22 15:15 | disposition home or self-care (01) ==
LOC: ER 12:03
DX: E87.6 Hypokalemia (principal); I10 Essential (primary) hypertension; I48.91 Unspecified atrial fibrillation; Z86.73 Personal history of transient ischemic attack (TIA), and cerebral infarction without residual deficits
CPT/HCPCS: 96365; 80048; 36415; 99285; J3480; J7050